=== PATIENT | female | born 1990 | race Caucasian/White ===

== ENCOUNTER 2021-12-09 11:00 | Emergency (ER) | payer MEDICAID, SELFPAY ==
[2021-12-09 11:01] VITALS: BP 135/82; PULSE 89; RESP 18; TEMP 35.7; O2SAT 97; BMI 38.2
[2021-12-09 11:12] VITALS: O2SAT 97
[2021-12-09 11:31] VITALS: BP 135/82; PULSE 89; RESP 18; TEMP 35.7; O2SAT 97
--- NOTE | 2021-12-09 11:58 | RAD_ITS ---
STUDY: X-RAY CHEST REASON FOR EXAM: Female, 31 years old. 3 day history of cough and shortness of breath. TECHNIQUE: Single AP portable view of the chest. COMPARISON: None. FINDINGS: The lungs are clear and expanded. There is no demonstrated pleural abnormality. Normal size heart. Normal mediastinum and bessy. Normal visualized pulmonary arteries. Normal visualized aortic arch and descending thoracic aorta. Normal visualized thoracic spine. Normal visualized ribs, clavicles, and shoulders. There is no demonstrated abnormality of the visualized soft tissue structures of the upper abdomen. RAD/Chest 1 View (Portable) IMPRESSION: Normal x-ray examination of the chest. Electronically Signed: Ralph Arteaga MD at 13:47 EST ,
--- NOTE | 2021-12-09 11:59 | EKG12_ITS ---
Test Reason : CP Blood Pressure : / mmHG Vent. Rate : 066 BPM Atrial Rate : 066 BPM P-R Int : 134 ms QRS Dur : 072 ms QT Int : 428 ms P-R-T Axes : 072 028 035 degrees QTc Int : 448 ms Normal sinus rhythm with sinus arrhythmia Normal ECG Confirmed by VANNESA MORSE, LEIF ([id number]), newspaper photo editor LEAH LAGUNAS ([id number]) on 12/10/2021 11:34:11 AM Referred By: DA Confirmed By:LEIF GRANADO MD
--- NOTE | 2021-12-09 12:00 | EDS_ITS ---
HPI History of Present Illness Chief Complaint: Chest Pain Informant: patient Onset/Context/Timing Onset: Today Current Severity: Mild Maximum Severity: Mild Narrative Narrative: Patient presents with URI symptoms for the last 6 to 7 days. Patient states on Thursday and Thursday of last week she had sore throat and right ear pain. She was seen by a provider who put her on amoxicillin as well as prednisone. She states is not having improvement in her symptoms. By Thursday evening she had developed chills and body aches. She felt as if she had a fever but did not have a thermometer to check her temperature. Today she has had some intermittent sharp pain with deep breath. [facility] Medical History Anxiety Asthma Depression Small bowel obstruction Medical History no medical history Home Medications epinephrine 0.3 mg IM X1 #2 syringe 04/07/17 [Rx Last Taken Unknown] Allergy/AdvReac Type Severity Reaction Status Date / Time acetaminophen [From Tylenol] Allergy Anaphylaxis Verified 12/09/21 12:20 aspirin Allergy Hives Verified 12/09/21 11:15 oxycodone HCl [From Percocet] Allergy Shortness Verified 12/09/21 11:15 of breath peanut Allergy Shortness Verified 12/09/21 11:15 of breath strawberry [[place]] Allergy Hives Verified 12/09/21 11:15 venom-honey bee Allergy Shortness Verified 12/09/21 11:15 [bee venom (honey bee)] of breath water chestnut Allergy Hives Verified 12/09/21 11:15 MSG Allergy Hives Uncoded 12/09/21 11:15 TEA Allergy Rash Uncoded 12/09/21 11:15 Surgical History no surgical history Social History Smoking Status: Never smoker ROS ROS ED Constitutional Constitutional ED: Reports chills, fever(s) and subjective Eyes Eyes: Denies change in vision ENT ENT ED: Reports ear pain right and sore throat Cardiovascular Cardiovascular: Reports chest pain Respiratory/Chest Respiratory/Chest: Reports cough and dyspnea Gastrointestinal Gastrointestinal: Denies abdominal pain, diarrhea, nausea or vomiting Genitourinary Genitourinary ED: Denies dysuria Musculoskeletal Musculoskeletal: Reports myalgias; Denies back pain Integumentary Denies rash Neurologic Neurologic: Reports weakness; Denies headache(s) Allergic/Immunologic Allergic/Immunologic ED: Denies urticaria EXAM Physical Exam Const Vital Signs: 12/09/21 11:01 12/09/21 11:12 12/09/21 11:31 Temperature 96.3 F L 96.3 F L Temperature Source Temporal Temporal Pulse Rate 89 89 Respiratory Rate 18 18 Respiratory Effort Normal Respiratory Depth Normal Respiratory Pattern Normal Blood Pressure 135/82 H 135/82 H Blood Pressure Mean 99 99 Pulse Ox 97 97 Oxygen Delivery Method Room Air Room Air Room Air Positive well nourished and well developed General Appearance ED: well developed HEENT Reports moist mucous membranes Eyes PERRL and EOMs intact bilaterally Neck supple Chest Wall inspection of chest normal and palpation of chest normal Resp normal respiratory effort and clear to auscultation bilaterally Cardio regular rate and regular rhythm GI normal to inspection, nondistended, normoactive bowel sounds and non-tender Palpation: soft Extremity normal to inspection Neuro oriented x3 Sensorium / Orientation: alert Psych mental status grossly normal Skin no rashes or lesions noted MDM MDM MDM Narrative Medical decision making narrative: EKG, chest x-ray, lab work obtained. Patient has allergies to NSAIDs as well as Tylenol. She was given IV fluids. Lab Data Attestation: I reviewed the patient's lab results. Labs: Laboratory Results - last 24 hr 12/09/21 12/09/21 12/09/21 12:10 12:10 12:10 WBC 5.2 RBC 4.44 Hgb 13.7 Hct 40.3 MCV 90.8 MCH 30.9 MCHC 34.0 RDW Std Deviation 42.9 RDW Coeff of Cheri 12.9 Plt Count 366 MPV 9.6 Immature Gran % (Auto) 0.400 Neut % (Auto) 64.0 Lymph % (Auto) 26.6 [place] % (Auto) 7.0 Eos % (Auto) 1.4 Baso % (Auto) 0.6 Absolute Neuts (auto) 3.3 Absolute Lymphs (auto) 1.37 Nucleated RBC % 0 D-Dimer Quant (PE/DVT) 0.52 H* Sodium 139 Potassium 3.5 Chloride 107 Carbon Dioxide 26.0 Anion Gap 6 BUN 11 Creatinine 0.67 Estim Creat Clear Calc 110.48 Est GFR (MDRD) Af Amer 131 Est GFR (MDRD) Non-Af 109 BUN/Creatinine Ratio 16.3 Glucose 90 Calcium 8.9 Serum , Qual Monoscreen 12/09/21 12/09/21 12:10 12:10 WBC RBC Hgb Hct MCV MCH MCHC RDW Std Deviation RDW Coeff of Cheri Plt Count MPV Immature Gran % (Auto) Neut % (Auto) Lymph % (Auto) [place] % (Auto) Eos % (Auto) Baso % (Auto) Absolute Neuts (auto) Absolute Lymphs (auto) Nucleated RBC % D-Dimer Quant (PE/DVT) Sodium Potassium Chloride Carbon Dioxide Anion Gap BUN Creatinine Estim Creat Clear Calc Est GFR (MDRD) Af Amer Est GFR (MDRD) Non-Af BUN/Creatinine Ratio Glucose Calcium Serum , Qual NEGATIVE Monoscreen Negative Radiography Chest X-Ray - ED: 1 View, Read by ED Physician, Normal, Heart, Lungs and Mediastinum Diagnostic Testing: Clinical Impression(s) from Imaging Studies Chest X-Ray 12/09/21 11:58 IMPRESSION: Normal x-ray examination of the chest. Electronically Signed: Ralph Arteaga MD at 13:47 EST , Chest CTA 12/09/21 12:41 IMPRESSION: Normal CTA chest examination, without a demonstrated pulmonary embolism or arterial dissection. Electronically Signed: Ralph Arteaga MD at 13:51 EST , EKG Initial EKG: Attestation: I personally reviewed and interpreted this EKG as follows: Interpretation: Sinus Rhythm (Sinus at 66 with no acute ischemia.) Treatment and Re-Evaluation Comments:: Lab work reviewed with the patient. Blood work is remarkable only for a slightly elevated D-dimer. [place] screen, influenza swab, Covid swab all negative. CTA of the chest reveals no evidence of PE or infiltrate. Patient advised to continue supportive care at home. Return instructions provided. Discharge Plan Triage Chief Complaint: Chest Pain ED Provider: Jessica Emerson Dx/Rx/DC Orders Clinical Impression: Viral syndrome Instructions: ED Viral Syndrome (Adult) Prescriptions: No Action epinephrine 0.3 MG syringe 0.3 mg IM X1 Qty: 2 RF: 0 Primary Care Provider: Jac Fonseca Referrals: Jac Fonseca MD [Primary Care Provider] - 1 Week Disposition Disposition: Home, Self Care
[2021-12-09 12:22] LABS: Absolute Lymphocyte Count 1.37 X10^3/uL (0.83-4.51); Absolute Neutrophil Count 3.3 X10^3/uL (2.0-7.7); Basophil# 0.03 X10^3/uL; Basophil% 0.6 % (0-1); Eosinophil# 0.07 X10^3/uL; Eosinophils% 1.4 % (0-5); Hematocrit 40.3 % (37-47); Hemoglobin 13.7 g/dL (12.0-15.0); Lymphocyte # 1.37 X10^3/ul (0.83-4.51); Lymphocyte % 26.6 % (19-41); Mean Corpuscular Hgb 30.9 pg (27.0-32.0); Mean Corpuscular Volume 90.8 fL (81-99); Mean Platelet Vol. 9.6 fl (6.2-12.0); Monocyte# 0.36 X10^3/uL; NRBC Flagged by Analyzer 0 % (0-5); Neutrophil # 3.31 X10^3/uL (2.7-7.7); Platelet Count 366 K/mm3 (150-450); RBC Distribution Width CV 12.9 % (11.6-14.6); RBC Distribution Width SD 42.9 fl (35.1-43.9); Red Blood Count 4.44 M/mm3 (4.2-5.4); White Blood Count 5.2 K/mm3 (4.4-11.0)
[2021-12-09 12:33] LABS: Anion Gap 6 (5-15); BUN 11 mg/dL (7-18); BUN/Creat Ratio 16.3 RATIO (10-20); Calcium,Total 8.9 mg/dL (8.5-10.1); Chloride 107 mmol/L (98-107); Creatinine, Serum 0.67 mg/dL (0.55-1.02); EST Glomerular Filtration Rate 109 mL/min (>60); Est Glom Filt Rate - Afr Amer 131 mL/min (>60); Estimated Creatinine Clearance 110.48 ml/min; Glucose 90 mg/dL (74-106); Potassium 3.5 mmol/L (3.5-5.1); Sodium Level 139 mmol/L (136-145)
[2021-12-09 12:41] LABS: D-Dimer Quantitative (DVT/PE) 0.52 FEU/ug/m (0.27-0.49)
--- NOTE | 2021-12-09 12:41 | CT_ITS ---
STUDY: CTA CHEST REASON FOR EXAM: Female, 31 years old. Sob, cp. Upper respiratory tract infection. RADIATION DOSAGE (If Supplied By Facility): CTDIvol = ( 14.705 ) mGy, DLP = ( 503.90 ) mGycm TECHNIQUE: The examination was performed with the intravenous administration of IV 100mL Isovue-370. Post-processing of the angiographic images was performed, with multiplanar reformation and 3D reconstruction. Individualized dose optimization techniques were used for this CT. COMPARISON: None. FINDINGS: Normal enhancement of the main pulmonary artery and right and left pulmonary arteries. Normal enhancement of the bilateral peripheral pulmonary arteries. There is no demonstrated pulmonary embolism. Normal thoracic aorta and visualized great vessels. There is no demonstrated aortic dissection. Normal heart and pericardium. Normal mediastinum. Normal hilar regions. Normal visualized trachea and bronchi. The lungs are well expanded. Minimal degree of dependent bibasilar atelectasis. Normal pleura. Normal chest wall structures. Normal osseous structures. There is diffuse fatty infiltration of the liver. CT/CTA Chest W/WO Contrast IMPRESSION: Normal CTA chest examination, without a demonstrated pulmonary embolism or arterial dissection. Electronically Signed: Ralph Arteaga MD at 13:51 EST ,
[2021-12-09 12:45] LABS: Internal QC Validated? YES +Cl - CLEAR BKGD; Pregnancy, Serum, hCG Quali. NEGATIVE Negative
[2021-12-09 12:55] LABS: Internal QC Validated? YES +Cl - CLEAR BKGD; Monotest Negative (Negative)
[2021-12-09 15:28] VITALS: BP 134/85; PULSE 89; RESP 16; TEMP 36.4; O2SAT 98
== END 2021-12-09 15:29 | disposition home or self-care (01) ==
PROVIDERS: Emergency Provider Emergency Medicine; PCP Family Medicine; Visit Provider Emergency Medicine
DX: B34.9 Viral infection, unspecified (principal); Z20.822 Contact with and (suspected) exposure to COVID-19; J45.909 Unspecified asthma, uncomplicated
CPT/HCPCS: 71045; 71275; 80048; 84703; 85025; 85379; 86308; 87426; 87804; 93005; 96360; 99284; J7030; Q9967; A4216

== ENCOUNTER 2021-12-19 05:48 | Emergency (ER) | payer MEDICAID, SELFPAY ==
[2021-12-19 05:49] VITALS: BP 114/65; PULSE 66; RESP 18; TEMP 35.7; O2SAT 95; BMI 39.2
--- NOTE | 2021-12-19 06:09 | EX.ED.DYSGE1 ---
HPI History of Present Illness Chief Complaint: Abd Pain Narrative Narrative: Patient is a 31-year-old female who states about 2 weeks ago she was diagnosed with a viral upper respiratory infection. States she is got over that about 3 days ago. She states she was feeling fine and went to bed last night normally and then awoke around 4 AM with generalized lower abdominal pain with nausea and loose stool/diarrhea. She denies any known sick contacts. She denies any travel outside the country or recent antibiotic use or exposure to livestock. She does report a history of IBS with diarrhea but states this feels different. Therefore she is concern for a underlying infection presents for evaluation [facility] Medical History Anxiety Asthma Depression Small bowel obstruction Home Medications epinephrine 0.3 mg IM X1 #2 syringe 04/07/17 [Rx Last Taken Unknown] dicyclomine 20 mg PO 4X/DAY PRN PRN #28 tab 12/19/21 [Rx Last Taken Unknown] ondansetron 4 mg PO Q8H PRN #21 tab 12/19/21 [Rx Last Taken Unknown] oxycodone 5 mg PO TID PRN 3 Days #9 tab 12/19/21 [Rx Last Taken Unknown] Allergy/AdvReac Type Severity Reaction Status Date / Time acetaminophen [From Tylenol] Allergy Anaphylaxis Verified 12/19/21 05:53 aspirin Allergy Hives Verified 12/19/21 05:53 oxycodone HCl [From Percocet] Allergy Shortness Verified 12/19/21 05:53 of breath peanut Allergy Shortness Verified 12/19/21 05:53 of breath strawberry [[place]] Allergy Hives Verified 12/19/21 05:53 venom-honey bee Allergy Shortness Verified 12/19/21 05:53 [bee venom (honey bee)] of breath water chestnut Allergy Hives Verified 12/19/21 05:53 MSG Allergy Hives Uncoded 12/19/21 05:53 TEA Allergy Rash Uncoded 12/19/21 05:53 Social History Smoking Status: Former smoker ROS ROS ED Constitutional Constitutional ED: Denies chills or fever(s) ENT ENT ED: Denies sore throat Cardiovascular Cardiovascular: Denies chest pain Respiratory/Chest Respiratory/Chest: Denies cough or dyspnea Gastrointestinal Gastrointestinal: Reports abdominal pain, diarrhea and nausea; Denies vomiting Genitourinary Genitourinary ED: Denies dysuria Musculoskeletal Musculoskeletal: Denies myalgias Integumentary Denies rash Neurologic Neurologic: Denies headache(s) Hematologic/Lymphatic Hematologic/Lymphatic: Denies easy bleeding or easy bruising EXAM Physical Exam Const Vital Signs: 12/19/21 05:49 Temperature 96.2 F L Temperature Source Temporal Pulse Rate 66 Respiratory Rate 18 Blood Pressure 114/65 Blood Pressure Mean 81 Pulse Ox 95 Oxygen Delivery Method Room Air Positive well nourished, well developed and obese General Appearance ED: well developed Nutritional Appearance: obese HEENT Reports dry mucous membranes Mouth ED: Yes dry mucous membranes Mouth: dry mucous membranes Eyes PERRL and EOMs intact bilaterally Neck supple Resp normal respiratory effort and clear to auscultation bilaterally Cardio regular rate and regular rhythm Rate: other Other Details: Radial pulses are +2-4 bilaterally are equal and symmetric GI non-distended GI Narrative: Abdomen is obese soft and nondistended with hypoactive bowel sounds. There is pain with palpation along the midepigastric region as well as the suprapubic and right lower quadrants. No voluntary guarding or rigidity. No pulsatile mass. No increased tympany Palpation: soft Extremity normal to inspection Neuro oriented x3 and CN's II-XII intact bilaterally Sensorium / Orientation: alert Motor Exam: strength 5/5 throughout Psych mental status grossly normal Skin no rashes or lesions noted MDM MDM MDM Narrative Medical decision making narrative: Patient presented to the ER afebrile with a soft nonsurgical abdomen. Therefore I felt only need for basic laboratory studies and no x-ray or CAT scan at this time. Basic blood work revealed no clinically significant findings. Patient was treated with IV fluids morphine and Zofran and had improvement of her pain. On reevaluation she is resting comfortably and her abdomen remains soft and nonsurgical. Therefore at this time I feel she most likely has a viral stomach infection but as she does not have signs of acute kidney injury or electrolyte disturbance or underlying intestinal inflammatory/infectious changes she can be placed on medication and discharged home. Lab Data Attestation: I reviewed the patient's lab results. Labs: Laboratory Results - last 24 hr 12/19/21 12/19/21 12/19/21 05:55 05:55 06:50 WBC 7.5 RBC 4.60 Hgb 14.2 Hct 41.8 MCV 90.9 MCH 30.9 MCHC 34.0 RDW Std Deviation 43.8 RDW Coeff of Cheri 13.1 Plt Count 326 MPV 9.6 Immature Gran % (Auto) 0.300 Neut % (Auto) 67.0 Lymph % (Auto) 24.9 [place] % (Auto) 6.4 Eos % (Auto) 0.9 Baso % (Auto) 0.5 Absolute Neuts (auto) 5.1 Absolute Lymphs (auto) 1.88 Nucleated RBC % 0 Sodium 137 Potassium 3.9 Chloride 107 Carbon Dioxide 24.0 Anion Gap 6 BUN 12 Creatinine 0.80 Estim Creat Clear Calc 88.79 Est GFR (MDRD) Af Amer 108 Est GFR (MDRD) Non-Af 89 BUN/Creatinine Ratio 15.0 Glucose 100 Calcium 8.9 Total Bilirubin 1.10 H Direct Bilirubin 0.19 AST 18 ALT 58 H Alkaline Phosphatase 73 Total Protein 7.3 Albumin 3.8 Globulin 3.5 Lipase 103 Urine Color Yellow Urine Clarity Clear Urine pH 6.0 Ur Specific [place] 1.020 Urine Protein 15 H Urine Glucose (UA) Normal Urine Ketones Negative Urine Occult Blood Negative Urine Nitrite Negative Urine Bilirubin Negative Urine Urobilinogen Normal Ur Leukocyte Esterase Negative Discharge Plan Triage Chief Complaint: Abd Pain ED Provider: Enmanuel Griffith Dx/Rx/DC Orders Clinical Impression: Nonspecific abdominal pain, Nausea, Diarrhea Instructions: Abdominal Pain, ED Gastroenteritis, Viral (Adult) Prescriptions: New ondansetron 4 mg tablet,disintegrating 4 mg PO Q8H PRN (Reason: nausea and vomiting) Qty: 21 RF: 0 dicyclomine 20 mg tablet 20 mg PO 4X/DAY PRN PRN (Reason: Abdominal pain/spasm) Qty: 28 RF: 0 oxycodone 5 mg tablet 5 mg PO TID PRN (Reason: pain) 3 Days Qty: 9 RF: 0 No Action epinephrine 0.3 MG syringe 0.3 mg IM X1 Qty: 2 RF: 0 Primary Care Provider: Jac Fonseca Referrals: Jac Fonseca MD [Primary Care Provider] - Disposition Disposition: Home, Self Care
[2021-12-19 06:11] LABS: Absolute Lymphocyte Count 1.88 X10^3/uL (0.83-4.51); Absolute Neutrophil Count 5.1 X10^3/uL (2.0-7.7); Basophil# 0.04 X10^3/uL; Basophil% 0.5 % (0-1); Eosinophil# 0.07 X10^3/uL; Eosinophils% 0.9 % (0-5); Hematocrit 41.8 % (37-47); Hemoglobin 14.2 g/dL (12.0-15.0); Lymphocyte # 1.88 X10^3/ul (0.83-4.51); Lymphocyte % 24.9 % (19-41); Mean Corpuscular Hgb 30.9 pg (27.0-32.0); Mean Corpuscular Volume 90.9 fL (81-99); Mean Platelet Vol. 9.6 fl (6.2-12.0); Monocyte# 0.48 X10^3/uL; Monocyte% 6.4 % (0-10); NRBC Flagged by Analyzer 0 % (0-5); Neutrophil # 5.05 X10^3/uL (2.7-7.7); Platelet Count 326 K/mm3 (150-450); RBC Distribution Width CV 13.1 % (11.6-14.6); RBC Distribution Width SD 43.8 fl (35.1-43.9); White Blood Count 7.5 K/mm3 (4.4-11.0)
[2021-12-19] MEDS: 0.9% Normal Saline 1,000 ML 999 ML IV (06:15)
[2021-12-19] MEDS: Ondansetron 4 MG/2 ML Vial IV (06:16)
[2021-12-19] MEDS: Morphine 4 MG/ML Syringe IV (06:17)
[2021-12-19 06:32] LABS: AST(SGOT) 18 U/L (15-37); Alanine Aminotransfer ALT/SGPT 58 U/L (13-56); Albumin, Serum 3.8 g/dL (3.2-5.0); Alkaline Phosphatase 73 U/L (45-117); Anion Gap 6 (5-15); BUN 12 mg/dL (7-18); Bilirubin, Direct 0.19 mg/dL (0.00-0.30); Calcium,Total 8.9 mg/dL (8.5-10.1); Chloride 107 mmol/L (98-107); EST Glomerular Filtration Rate 89 mL/min (>60); Est Glom Filt Rate - Afr Amer 108 mL/min (>60); Estimated Creatinine Clearance 88.79 ml/min; Globulin 3.5 g/dL (2.2-4.2); Glucose 100 mg/dL (74-106); Lipase 103 U/L (73-393); Potassium 3.9 mmol/L (3.5-5.1); Protein, Total 7.3 g/dL (6.4-8.2); Sodium Level 137 mmol/L (136-145)
[2021-12-19 06:56] LABS: Color, Urine Yellow (Yellow); Glucose, Dipstick Normal (Normal); Ketone-Dipstick Negative (Negative); Leukocyte Esterase-Dipstick Negative /ul (Negative); Mucous, Urine 0 SEEN /hpf (<or=2+); Nitrite-Dipstick Negative (Negative); Occult Blood-Urine Negative /ul (Negative); Protein-Dipstick 15 mg/dl (Negative); Red Blood Cells-Urine 0 SEEN /hpf (0-5); Urine Bilirubin Dipstick Negative (Negative); Urine Clarity Clear (Clear); Urine Urobilinogen Normal (Normal); White Blood Cells 0 SEEN /hpf (0-5)
[2021-12-19 07:07] LABS: Bacteria 1+ /hpf (None Seen); Squamous Epithelial Cells - UA 0-5 SEEN /hpf (5-10)
[2021-12-19 07:24] VITALS: BP 115/82; PULSE 68; RESP 18
== END 2021-12-19 07:26 | disposition home or self-care (01) ==
PROVIDERS: Emergency Provider Emergency Medicine; PCP Family Medicine; Visit Provider Emergency Medicine
DX: R10.9 Unspecified abdominal pain (principal); R11.0 Nausea; K58.0 Irritable bowel syndrome with diarrhea; J45.909 Unspecified asthma, uncomplicated; E66.9 Obesity, unspecified; F32.A Depression, unspecified; F41.9 Anxiety disorder, unspecified; Z87.891 Personal history of nicotine dependence
CPT/HCPCS: 80048; 80076; 81001; 83690; 85025; 87086; 87088; 96361; 96374; 96375; 99283; A4216; J2405

== ENCOUNTER 2021-12-26 16:13 | Emergency (ER) | payer MEDICAID, SELFPAY ==
[2021-12-26 16:14] VITALS: BP 121/55; PULSE 65; RESP 14; TEMP 36.9; O2SAT 100; BMI 37.8
--- NOTE | 2021-12-26 16:26 | CT_ITS ---
HISTORY: flank pain EXAMINATION: CT Abdomen And Pelvis W/O Contrast Injection TECHNIQUE: Multiple axial images were obtained of the abdomen and pelvis without oral or IV contrast. A radiation dose optimization technique was used for this scan. IV Contrast dosage and agent: None. Oral contrast: None. COMPARISON: 06/30/16 FINDINGS: LOWER CHEST: Trace bibasilar pleural effusions. No cardiomegaly or pericardial effusion. LIVER: Homogeneous. No focal mass. GALLBLADDER AND BILIARY TREE: Cholecystectomy. No intra- or extrahepatic biliary ductal dilation. PANCREAS: No focal cystic or solid mass. SPLEEN: Normal size without focal cystic or solid mass. ADRENAL GLANDS: No nodules. KIDNEYS AND URETERS: Nonobstructing right renal calculi. No hydronephrosis bilaterally. PERITONEUM: No ascites or free air. BOWEL: Normal appendix. No stomach or bowel distension. No focal inflammatory bowel wall changes. LYMPH NODES: No enlarged mesenteric or retroperitoneal lymph nodes. VESSELS: Aorta is non-dilated. URINARY BLADDER: Unremarkable. REPRODUCTIVE ORGANS: No pelvic masses. Uterus absent. ABDOMINAL WALL: No discrete abdominal or pelvic wall hernia. BONES: No acute or aggressive abnormality. CT/Abdomen/Pelvis without Cont IMPRESSION: No acute findings in the abdomen or pelvis. Nonobstructing right nephrolithiasis. No evidence of obstructive uropathy. Trace bibasilar pleural effusions. Individualized dose optimization techniques were used for this CT. at 1803 Reported and signed by: Levi Sosa MD Electronically Signed: Levi Sosa MD at 18:01 EST ,
[2021-12-26] MEDS: 0.9% Normal Saline 1,000 ML 999 ML IV (16:34)
[2021-12-26] MEDS: Morphine 4 MG/ML Syringe IV (16:34)
[2021-12-26] MEDS: Ondansetron 4 MG/2 ML Vial IV (16:34)
--- NOTE | 2021-12-26 16:36 | EDS_ITS ---
HPI <MODESTA Faust - Last Filed: 12/26/21 18:24> History of Present Illness Chief Complaint: Flank Pain Narrative Narrative: 31-year-old female with PMH of kidney stones presents with nausea and vomiting that started this morning and sudden onset bilateral lower back pain that started 1 hour ago. Pain is slightly worse on the right. She states her urine seems darker but she has no burning or blood. No abdominal pain. No fever, chills, chest pain, or shortness of breath. She states she had kidney stones once 2 years ago and it passed without intervention but she did need admitted for pain control. Abdominal surgical history includes cholecystectomy and hysterectomy. PFSH <MODESTA Faust - Last Filed: 12/26/21 18:24> PFSH Medical History (Updated 12/26/21 @ 18:[address] Domenic Ponce MD) Anxiety Asthma Depression Hx of abdominal abscess Small bowel obstruction Home Medications epinephrine 0.3 mg IM X1 #2 syringe 04/07/17 [Rx Last Taken Unknown] lidocaine 1 patch TOPICAL DAILY #7 ea 12/26/21 [Rx Last Taken Unknown] ondansetron 4 mg PO Q8H PRN PRN #10 tab 12/26/21 [Rx Last Taken Unknown] Allergy/AdvReac Type Severity Reaction Status Date / Time acetaminophen [From Tylenol] Allergy Anaphylaxis Verified 12/26/21 16:15 aspirin Allergy Hives Verified 12/26/21 16:15 ibuprofen Allergy Anaphylaxis Verified 12/26/21 16:23 oxycodone HCl [From Percocet] Allergy Shortness Verified 12/26/21 16:15 of breath peanut Allergy Shortness Verified 12/26/21 16:15 of breath strawberry [[place]] Allergy Hives Verified 12/26/21 16:15 venom-honey bee Allergy Shortness Verified 12/26/21 16:15 [bee venom (honey bee)] of breath water chestnut Allergy Hives Verified 12/26/21 16:15 MSG Allergy Hives Uncoded 12/26/21 16:15 TEA Allergy Rash Uncoded 12/26/21 16:15 Surgical History (Updated 12/26/21 @ 16:25 by Inés Cooley) Hx of cholecystectomy Social History Smoking Status: Former smoker ROS <MODESTA Faust - Last Filed: 12/26/21 18:24> ROS ED ROS Narrative Constitutional: Negative for fever, chills, malaise. Eyes: Negative for visual change. ENT: Negative for sore throat, rhinorrhea. CVS: Negative for palpitations, chest pain, syncope. Respiratory: Negative for shortness of breath, cough, orthopnea. GI: Positive for nausea, vomiting. Negative for abdominal pain, diarrhea, constipation, melena, hematochezia. : Negative for dysuria, hematuria or frequency. Neuro: Negative for headache, motor/sensory dysfunction. Skin: Negative for rash, abscess, or wound. Musc: Negative for joint pain, swelling, trauma. Heme: Negative for easy bruising, bleeding, lymphadenopathy. EXAM <MODESTA Faust - Last Filed: 12/26/21 18:24> Physical Exam Narrative Exam Narrative: CONST: Patient sitting in no acute distress. EYES: Normal inspection. ENT: Normal inspection, moist mucous membranes. NECK: Normal inspection. RESP: No respiratory distress, CTAB. CVS: Regular rate and rhythm, no murmur, no gallop. ABD: Soft and nontender, no guarding or rebound, nondistended, no he patosplenomegaly. Back: Normal inspection, no CVA tenderness. SKIN: Color normal, no rash, warm, dry, intact. EXTREMITIES: Normal appearance, no pedal edema. NEURO: Oriented x4. PSYCH: Normal affect. Const Vital Signs: 12/26/21 16:14 Temperature 98.5 F Temperature Source Temporal Pulse Rate 65 Respiratory Rate 14 Blood Pressure 121/55 H Blood Pressure Mean 77 Pulse Ox 100 Oxygen Delivery Method Room Air <Dr. Domenic Ponce MD - Last Filed: 12/26/21 18:30> Physical Exam Const Vital Signs: 12/26/21 16:14 Temperature 98.5 F Temperature Source Temporal Pulse Rate 65 Respiratory Rate 14 Blood Pressure 121/55 H Blood Pressure Mean 77 Pulse Ox 100 Oxygen Delivery Method Room Air MDM <MODESTA Faust - Last Filed: 12/26/21 18:24> MDM MDM Narrative Medical decision making narrative: Patient presents with vomiting and bilateral low back pain and abdominal pain. She appears uncomfortable but nontoxic. Afebrile and vital signs within normal limits. Her cardiopulmonary exam is normal. She does have mild diffuse abdominal tenderness but it is soft and nondistended with no peritoneal signs. No CVA tenderness. No midline spinal tenderness. CBC, BMP within normal limits. Urinalysis and hCG are negative. CT abdomen/pelvis shows no acute process. I will prescribe Zofran and lidocaine patches for her flank pain of unknown etiology. She was counseled on signs that would warrant return and should follow-up with her PCP. She was discharged in stable condition. Diagnosis #1. Flank pain of unknown etiology #2 Nausea and vomiting Lab Data Labs: Laboratory Results - last 24 hr 12/26/21 12/26/21 12/26/21 16:30 16:30 16:35 WBC 7.1 RBC 4.62 Hgb 14.1 Hct 42.1 MCV 91.1 MCH 30.5 MCHC 33.5 RDW Std Deviation 43.6 RDW Coeff of Cheri 13.1 Plt Count 297 MPV 9.9 Immature Gran % (Auto) 0.400 Neut % (Auto) 70.7 H Lymph % (Auto) 21.4 [place] % (Auto) 6.3 Eos % (Auto) 0.8 Baso % (Auto) 0.4 Absolute Neuts (auto) 5.0 Absolute Lymphs (auto) 1.52 Nucleated RBC % 0 Sodium 138 Potassium 3.8 Chloride 107 Carbon Dioxide 25.0 Anion Gap 6 BUN 10 Creatinine 0.83 Estim Creat Clear Calc 85.58 Est GFR (MDRD) Af Amer 103 Est GFR (MDRD) Non-Af 85 BUN/Creatinine Ratio 12.0 Glucose 89 Calcium 9.2 Urine Color Yellow Urine Clarity Clear Urine pH 6.5 Ur Specific [place] 1.010 Urine Protein Negative Urine Glucose (UA) Normal Urine Ketones Negative Urine Occult Blood Negative Urine Nitrite Negative Urine Bilirubin Negative Urine Urobilinogen Normal Ur Leukocyte Esterase Negative Urine RBC 0 SEEN Urine WBC 0 SEEN Ur Squamous Epith Cells 0-5 SEEN Urine Bacteria 0 SEEN Urine Mucus 0 SEEN Urine Test Negative Radiography Diagnostic Testing: Clinical Impression(s) from Imaging Studies Abdomen/Pelvis CT 12/26/21 16:26 IMPRESSION: No acute findings in the abdomen or pelvis. Nonobstructing right nephrolithiasis. No evidence of obstructive uropathy. Trace bibasilar pleural effusions. Individualized dose optimization techniques were used for this CT. at 1803 Reported and signed by: Levi Sosa MD Electronically Signed: Levi Sosa MD at 18:01 EST , <Dr. Domenic Ponce MD - Last Filed: 12/26/21 18:30> [facility] MDM Narrative Medical decision making narrative: Patient presents with low back pain only on one side versus the other. It is exacerbated with movement. Patient believes she has a stone. She denies dysuria, frequency, urgency or hematuria. She does rep ort low back pain as well as numbness in her entire right leg. She denies foot drop. She denies trouble with urination or loss of bowel control. She has no other complaints. Straight leg test is negative. She complains of pain centrally at 45 degrees on the right. Patella and ankle reflexes are 1+. EHLs intact. She has numbness that is circumferential of the right leg. DP and PT pulse are palpable. CT was obtained which was negative. Lab Data Attestation: I reviewed the patient's lab results. Lab results narrative: CBC and differential are unremarkable. Basic metabolic panel is unremarkable. Urine is unremarkable. Labs: Laboratory Results - last 24 hr 12/26/21 12/26/21 12/26/21 16:30 16:30 16:35 WBC 7.1 RBC 4.62 Hgb 14.1 Hct 42.1 MCV 91.1 MCH 30.5 MCHC 33.5 RDW Std Deviation 43.6 RDW Coeff of Cheri 13.1 Plt Count 297 MPV 9.9 Immature Gran % (Auto) 0.400 Neut % (Auto) 70.7 H Lymph % (Auto) 21.4 [place] % (Auto) 6.3 Eos % (Auto) 0.8 Baso % (Auto) 0.4 Absolute Neuts (auto) 5.0 Absolute Lymphs (auto) 1.52 Nucleated RBC % 0 Sodium 138 Potassium 3.8 Chloride 107 Carbon Dioxide 25.0 Anion Gap 6 BUN 10 Creatinine 0.83 Estim Creat Clear Calc 85.58 Est GFR (MDRD) Af Amer 103 Est GFR (MDRD) Non-Af 85 BUN/Creatinine Ratio 12.0 Glucose 89 Calcium 9.2 Urine Color Yellow Urine Clarity Clear Urine pH 6.5 Ur Specific [place] 1.010 Urine Protein Negative Urine Glucose (UA) Normal Urine Ketones Negative Urine Occult Blood Negative Urine Nitrite Negative Urine Bilirubin Negative Urine Urobilinogen Normal Ur Leukocyte Esterase Negative Urine RBC 0 SEEN Urine WBC 0 SEEN Ur Squamous Epith Cells 0-5 SEEN Urine Bacteria 0 SEEN Urine Mucus 0 SEEN Urine Test Negative Radiography Diagnostic Testing: Clinical Impression(s) from Imaging Studies Abdomen/Pelvis CT 12/26/21 16:26 IMPRESSION: No acute findings in the abdomen or pelvis. Nonobstructing right nephrolithiasis. No evidence of obstructive uropathy. Trace bibasilar pleural effusions. Individualized dose optimization techniques were used for this CT. at 1803 Reported and signed by: Levi Sosa MD Electronically Signed: Levi Sosa MD at 18:01 EST Reading Location ID and State: [address] [place] [address] Tel , Service support , Discharge Plan Triage Chief Complaint: Flank Pain ED Provider: Franchesca Catherine Dx/Rx/DC Orders Clinical Impression: Nausea and vomiting, Acute flank pain, Low back pain, Numbness and tingling of right lower extremity Instructions: ED Flank Pain, Uncertain Cause, ED Vomiting (Adult) Prescriptions: New ondansetron 4 mg tablet,disintegrating 4 mg PO Q8H PRN PRN (Reason: Nausea) Qty: 10 RF: 0 lidocaine 5 % adhesive patch,medicated 1 patch topical DAILY Qty: 7 RF: 0 No Action epinephrine 0.3 MG syringe 0.3 mg IM X1 Qty: 2 RF: 0 Primary Care Provider: Jac Fonseca Referrals: Jac Fonseca MD [Primary Care Provider] - Activity Restrictions/Additional Instructions: Today you were seen for abdominal and back pain. Your blood work looks normal. There is no UTI and your test is negative. The CAT scan showed no abnormalities. At this time the cause of your pain is unknown but we feel you are safe to go home and follow-up with your primary care doctor. Please take Zofran as needed for nausea and you can use the lidocaine patches on the affected areas Disposition Disposition: Home, Self Care
[2021-12-26 16:43] LABS: Bacteria 0 SEEN /hpf (None Seen); Mucous, Urine 0 SEEN /hpf (<or=2+); Red Blood Cells-Urine 0 SEEN /hpf (0-5); White Blood Cells 0 SEEN /hpf (0-5)
[2021-12-26 16:45] LABS: Absolute Lymphocyte Count 1.52 X10^3/uL (0.83-4.51); Basophil# 0.03 X10^3/uL; Basophil% 0.4 % (0-1); Eosinophil# 0.06 X10^3/uL; Eosinophils% 0.8 % (0-5); Hematocrit 42.1 % (37-47); Hemoglobin 14.1 g/dL (12.0-15.0); Lymphocyte # 1.52 X10^3/ul (0.83-4.51); Lymphocyte % 21.4 % (19-41); Mean Corp Hgb Conc 33.5 g/dL (32-36); Mean Corpuscular Hgb 30.5 pg (27.0-32.0); Mean Corpuscular Volume 91.1 fL (81-99); Mean Platelet Vol. 9.9 fl (6.2-12.0); Monocyte# 0.45 X10^3/uL; Monocyte% 6.3 % (0-10); NRBC Flagged by Analyzer 0 % (0-5); Neutrophil % 70.7 % (47-70); Platelet Count 297 K/mm3 (150-450); RBC Distribution Width CV 13.1 % (11.6-14.6); RBC Distribution Width SD 43.6 fl (35.1-43.9); Red Blood Count 4.62 M/mm3 (4.2-5.4); White Blood Count 7.1 K/mm3 (4.4-11.0)
[2021-12-26 16:59] LABS: Color, Urine Yellow (Yellow); Glucose, Dipstick Normal (Normal); Ketone-Dipstick Negative (Negative); Leukocyte Esterase-Dipstick Negative /ul (Negative); Nitrite-Dipstick Negative (Negative); Occult Blood-Urine Negative /ul (Negative); Protein-Dipstick Negative (Negative); Urine Bilirubin Dipstick Negative (Negative); Urine Clarity Clear (Clear); Urine Urobilinogen Normal (Normal); Urine pH 6.5 (5.0 - 8.0)
[2021-12-26 17:14] LABS: Squamous Epithelial Cells - UA 0-5 SEEN /hpf (5-10)
[2021-12-26 17:16] LABS: Anion Gap 6 (5-15); BUN 10 mg/dL (7-18); Calcium,Total 9.2 mg/dL (8.5-10.1); Chloride 107 mmol/L (98-107); Creatinine, Serum 0.83 mg/dL (0.55-1.02); EST Glomerular Filtration Rate 85 mL/min (>60); Est Glom Filt Rate - Afr Amer 103 mL/min (>60); Estimated Creatinine Clearance 85.58 ml/min; Glucose 89 mg/dL (74-106); Potassium 3.8 mmol/L (3.5-5.1); Sodium Level 138 mmol/L (136-145)
[2021-12-26 17:25] LABS: Internal QC Validated? YES +Cl - CLEAR BKGD; Pregnancy, Urine Negative Negative
[2021-12-26 18:40] VITALS: RESP 16
== END 2021-12-26 18:42 | disposition home or self-care (01) ==
PROVIDERS: Emergency Provider Physician Assistant; PCP Family Medicine; Visit Provider Physician Assistant
DX: R10.9 Unspecified abdominal pain (principal); M54.50 Low back pain, unspecified; R11.2 Nausea with vomiting, unspecified; R20.2 Paresthesia of skin; R20.0 Anesthesia of skin; R10.817 Generalized abdominal tenderness; J45.909 Unspecified asthma, uncomplicated; Z87.442 Personal history of urinary calculi; Z87.891 Personal history of nicotine dependence; Z90.49 Acquired absence of other specified parts of digestive tract; Z90.710 Acquired absence of both cervix and uterus
CPT/HCPCS: 74176; 80048; 81001; 81025; 85025; 96361; 96374; 96375; 99283; J7030; A4216; J2405

== ENCOUNTER 2022-01-08 07:33 | Emergency (ER) | payer MEDICAID, SELFPAY ==
[2022-01-08 07:33] VITALS: BP 134/74; PULSE 75; RESP 18; TEMP 36.7; O2SAT 95; BMI 39.2
[2022-01-08] MEDS: Meclizine HCl 25 MG Tablet PO (08:34)
--- NOTE | 2022-01-08 08:46 | EDS_ITS ---
HPI History of Present Illness Chief Complaint: Dizziness Informant: patient Narrative Narrative: Patient is a 31-year-old female with history of intermittent vertigo presenting with dizziness. Patient states she had multiple cold over the past few weeks and most recently getting better 4 days ago. She states yesterday she had episode of mild dizziness when she woke up and feeling off balance. She states she rested and felt better as the day went on. This morning she got up around 4 AM for no particular reason that she is been feeling very dizzy since. She states it feels like the floor is bouncing when she walks. She states she has associated nausea. This feels like her prior vertigo but is never been this bad. She notes that she is also been having a headache for the past week which has been taking ibuprofen for. Denies any ringing in her ears, decrease in her hearing, ear pain or nasal congestion currently. No fever or chills. No other complaints at this time. [facility] Medical History (Updated 01/08/22 @ 10:[address] Lela Holland, ) Anxiety Asthma Depression Hx of abdominal abscess Small bowel obstruction Home Medications epinephrine 0.3 mg IM X1 #2 syringe 04/07/17 [Rx Last Taken Unknown] meclizine 25 mg PO TID PRN #20 tab 01/08/22 [Rx Last Taken Unknown] Allergy/AdvReac Type Severity Reaction Status Date / Time acetaminophen [From Tylenol] Allergy Anaphylaxis Verified 01/08/22 07:36 aspirin Allergy Hives Verified 01/08/22 07:36 ibuprofen Allergy Anaphylaxis Verified 01/08/22 07:36 oxycodone HCl [From Percocet] Allergy Shortness Verified 01/08/22 07:36 of breath peanut Allergy Shortness Verified 01/08/22 07:36 of breath strawberry [[place]] Allergy Hives Verified 01/08/22 07:36 venom-honey bee Allergy Shortness Verified 01/08/22 07:36 [bee venom (honey bee)] of breath water chestnut Allergy Hives Verified 01/08/22 07:36 MSG Allergy Hives Uncoded 01/08/22 07:36 TEA Allergy Rash Uncoded 01/08/22 07:36 Surgical History Hx of cholecystectomy Social History Smoking Status: Former smoker ROS ROS ED Constitutional Constitutional ED: Reports other Details: Dizziness ; Denies chills or fever(s) Eyes Eyes: Reports other Details: Photosensitivity ; Denies blurry vision or change in vision ENT ENT ED: Reports other Details: recent congestion ; Denies ear pain or rhinorrhea Cardiovascular Cardiovascular: Denies chest pain Respiratory/Chest Respiratory/Chest: Denies cough or dyspnea Gastrointestinal Gastrointestinal: Reports nausea; Denies abdominal pain, diarrhea or vomiting Genitourinary Genitourinary ED: Denies dysuria or hematuria Musculoskeletal Musculoskeletal: Denies arthralgias, myalgias or neck pain Integumentary Denies rash Neurologic Neurologic: Reports headache(s); Denies paresthesias or weakness EXAM Physical Exam Const Vital Signs: 01/08/22 07:33 01/08/22 08:17 01/08/22 09:59 Temperature 98.0 F Temperature Source Oral Pulse Rate 75 85 Respiratory Rate 18 16 Respiratory Pattern Normal Blood Pressure 134/74 H 121/79 H Blood Pressure Mean 94 93 Pulse Ox 95 100 Oxygen Delivery Method Room Air Room Air Positive well nourished and well developed General Appearance ED: well developed and NAD HEENT Reports TM's clear and moist mucous membranes Negative for trauma Tympanic Membrane ED: Yes TM's clear Eyes PERRL and EOMs intact bilaterally Eyes Narrative: Bilateral horizontal oversee nystagmus, exacerbated by leftward gaze/head movement and left Argenis-Hallpike maneuver Neck no lymphadenopathy and supple Neck Narrative: No meningeal signs Chest Wall inspection of chest normal Resp normal respiratory effort and clear to auscultation bilaterally Cardio regular rate, regular rhythm and no murmurs GI normal to inspection, nondistended, normoactive bowel sounds Back/Spine no CVA tenderness Extremity normal to inspection General Extremety ED: Negative for edema or tenderness General Extremity: Negative for edema Neuro oriented x3 and CN's II-XII intact bilaterally Neuro Narrative: Normal coordination. No truncal ataxia. Normal itrohn-uf-puym and [id number] Sensorium / Orientation: alert Motor Exam: Negative for general weakness Psych mental status grossly normal Skin no rashes or lesions noted and no wounds MDM MDM MDM Narrative Medical decision making narrative: Patient evaluated for 1 week of headache as well as dizziness. She appears nontoxic and in no acute distress. She is mildly tearful. I am able to reproduce her symptoms with head maneuvers. I suspect she has peripheral vertigo. She also has a history of headaches is been having a headache for the past week. It does not seem meningeal. Is not a thunderclap headache. Is given a migraine cocktail including Compazine, Benadryl and fluids. Patient is allergic to NSAIDs. She is also given meclizine in the ER. Patient reports improvement of symptoms on repeat evaluation. Will be discharged home with information on the Suzanne maneuver. Given referral for ENT. Given a short course of meclizine. Lab Data Labs: Laboratory Results - last 24 hr 01/08/22 09:15 Salicylates < 1.7 L Discharge Plan Triage Chief Complaint: Dizziness ED Provider: Lela Holland Dx/Rx/DC Orders Clinical Impression: Vertigo, Headache Instructions: ED BPV Vertigo Prescriptions: New meclizine 25 mg tablet 25 mg PO TID PRN (Reason: dizziness) Qty: 20 RF: 0 No Action epinephrine 0.3 MG syringe 0.3 mg IM X1 Qty: 2 RF: 0 Primary Care Provider: Jac Fonseca Referrals: Jac Fonseca MD [Primary Care Provider] - Ruperto Amaya MD [STAFF PHYSICIAN] - As Needed Disposition Disposition: Home, Self Care
[2022-01-08] MEDS: DiphenhydrAMINE 50 MG/ML Syringe 25 MG IV (09:06)
[2022-01-08] MEDS: 0.9% Normal Saline 1,000 ML 999 ML IV (09:06)
[2022-01-08] MEDS: proCHLORPERazine 10 MG/2 ML Vial IV (09:06)
[2022-01-08 09:54] LABS: Salicylate < 1.7 mg/dL (2.8-20.0)
[2022-01-08 09:59] VITALS: BP 121/79; PULSE 85; RESP 16; O2SAT 100
== END 2022-01-08 10:45 | disposition home or self-care (01) ==
PROVIDERS: Emergency Provider Emergency Medicine; PCP Family Medicine; Visit Provider Emergency Medicine
DX: R42 Dizziness and giddiness (principal); R51.9 Headache, unspecified; J45.909 Unspecified asthma, uncomplicated; Z87.891 Personal history of nicotine dependence
CPT/HCPCS: 80329; 96361; 96374; 96375; 99285; J7030; A4216; G0480

== ENCOUNTER 2022-02-05 12:46 | Emergency (ER) | payer MEDICAID, SELFPAY ==
[2022-02-05 12:46] VITALS: BP 147/91; PULSE 91; RESP 16; TEMP 36.6; O2SAT 98; BMI 37.8
--- NOTE | 2022-02-05 13:06 | EX.ED.GENINJ ---
HPI History of Present Illness Chief Complaint: Head Injury Narrative Narrative: Patient presents with postconcussive syndrome from an injury she sustained last evening around 8 or 9 PM, approximately 16 hours ago. She states that she fell against a door and hit the back of her head. She denies loss of consciousness. She also has left-sided neck pain. She has had multiple episodes of vomiting, 6 today. She has a headache and ringing in her ears. She denies any numbness or tingling of her arms or legs. She does not take blood thinners. She presents for evaluation. [facility] Medical History Anxiety Asthma Depression Hx of abdominal abscess Small bowel obstruction Home Medications epinephrine 0.3 mg IM X1 #2 syringe 04/07/17 [Rx Last Taken Unknown] meclizine 25 mg PO TID PRN #20 tab 01/08/22 [Rx Last Taken Unknown] ondansetron 4 mg PO Q6H PRN #12 tab 02/05/22 [Rx Last Taken Unknown] Allergy/AdvReac Type Severity Reaction Status Date / Time acetaminophen [From Tylenol] Allergy Anaphylaxis Verified 02/05/22 12:48 aspirin Allergy Hives Verified 02/05/22 12:48 ibuprofen Allergy Anaphylaxis Verified 02/05/22 12:48 oxycodone HCl [From Percocet] Allergy Shortness Verified 02/05/22 12:48 of breath peanut Allergy Shortness Verified 02/05/22 12:48 of breath strawberry [[place]] Allergy Hives Verified 02/05/22 12:48 venom-honey bee Allergy Shortness Verified 02/05/22 12:48 [bee venom (honey bee)] of breath water chestnut Allergy Hives Verified 02/05/22 12:48 MSG Allergy Hives Uncoded 02/05/22 12:48 TEA Allergy Rash Uncoded 02/05/22 12:48 Surgical History Hx of cholecystectomy Social History Smoking Status: Former smoker ROS ROS ED ROS Narrative Constitutional: No fever, no chills. HEENT: No sore throat. Left-sided neck pain. No loss of vision. No rhinorrhea. Cardiovascular: No chest pain. No palpitations. No pedal edema. Respiratory: No cough, no shortness of breath. Abdominal: No abdominal pain. Positive nausea. Positive vomiting. Genitourinary: No dysuria. No hematuria. Musculoskeletal: No myalgias. No arthralgias. Neurologic: Positive headaches. Problems concentrating, slight memory loss. Positive tinnitus. No dizziness. No lightheadedness. Skin: No rash. No change in color. Psychiatric: No depression. No anxiety. EXAM Physical Exam Narrative Exam Narrative: Afebrile. Vital signs noted. GCS 15. ABCs are intact. HEENT: Normocephalic. Atraumatic. PERRL, EOMI. Neck soft and supple. No point tenderness or step off. Mild tenderness to palpation left paraspinal musculature. Full range of motion of neck without pain. Cardiovascular: Regular rate and rhythm. No murmurs, rubs, or gallops appreciated. Respiratory: No tachypnea. Lungs clear to auscultation bilaterally. Gastrointestinal: Abdomen soft, nontender, with normoactive bowel sounds. No rebound or guarding. Neurological: Awake. Alert. Nonfocal, nonlateralizing. Able to raise arms above head without difficulty. Skin: No rash. Normal color. No pallor. Musculoskeletal: No pedal edema. Full range of motion extremities. Const Vital Signs: 02/05/22 12:46 02/05/22 12:52 Temperature 97.8 F Temperature Source Temporal Pulse Rate 91 Respiratory Rate 16 Respiratory Pattern Normal Blood Pressure 147/91 H Blood Pressure Mean 109 Pulse Ox 98 Oxygen Delivery Method Room Air MDM MDM MDM Narrative Medical decision making narrative: I do not feel that CT imaging of her brain, or any imaging of her neck is indicated. I do think that she has more of a neck strain. Her symptoms are all postconcussive. She will be symptomatic. She was given a dose of Zofran here, but lists multiple allergies to acetaminophen, aspirin, ibuprofen, oxycodone in her allergy list. She will take any [id number] medication that she can for analgesia. She was instructed on brain rest. Additionally, she was given a prescription for 12 Zofran ODT's. She will follow up with her primary care provider. She was told that her symptoms may last up to 7 to 10 days from the day of her injury, and then at that point in time she may need referral to a neurologist and outpatient imaging. I feel she can be discharged safely home with follow-up. Return instructions were reviewed. Disposition is discharged home in stable condition. Discharge Plan Triage Chief Complaint: Head Injury ED Provider: Federico Eden Dx/Rx/DC Orders Clinical Impression: Closed head injury, Post concussion syndrome, Fall Instructions: ED Concussion, ED Head Injury (Adult) Prescriptions: New ondansetron 4 mg tablet,disintegrating 4 mg PO Q6H PRN (Reason: nausea and vomiting) Qty: 12 RF: 0 No Action epinephrine 0.3 MG syringe 0.3 mg IM X1 Qty: 2 RF: 0 meclizine 25 mg tablet 25 mg PO TID PRN (Reason: dizziness) Qty: 20 RF: 0 Primary Care Provider: Jac Fonseca Referrals: Jac Fonseca MD [Primary Care Provider] - 1 Week if not improving Disposition Disposition: Home, Self Care Discharge Date/Time: 02/05/22 13:36
[2022-02-05] MEDS: Ondansetron ODT 4 MG Tablet PO (13:09)
== END 2022-02-05 13:36 | disposition home or self-care (01) ==
LOC: ED 13:23
PROVIDERS: Emergency Provider Emergency Medicine; PCP Family Medicine; Visit Provider Emergency Medicine
DX: F07.81 Postconcussional syndrome (principal); W01.198A Fall on same level from slipping, tripping and stumbling with subsequent striking against other object, initial encounter; H93.13 Tinnitus, bilateral; J45.909 Unspecified asthma, uncomplicated; Z87.891 Personal history of nicotine dependence
CPT/HCPCS: 99283

== ENCOUNTER 2022-04-21 14:34 | Emergency (ER) | payer MEDICAID, SELFPAY ==
[2022-04-21 14:35] VITALS: BP 144/93; PULSE 89; RESP 16; TEMP 36.7; O2SAT 99; BMI 39.4
[2022-04-21 15:02] VITALS: BP 146/68; PULSE 69; RESP 15; O2SAT 98
--- NOTE | 2022-04-21 15:07 | EDS_ITS ---
HPI HPI - GI History of Present Illness Chief Complaint: Abd Pain Narrative Narrative: 32-year-old female presenting with abdominal pain. She states this started abruptly on . She noted around her umbilicus and now is radiating to the right lower quadrant. She admits to diarrhea and nausea. She has not been vomiting. She had a fever of 101 ?F yesterday. She denies urinary complaints or vaginal complaints. She states that she has had a cholecystectomy distantly. She is also had intra-abdominal abscesses status post hysterectomy. PFSH PFSH Medical History Anxiety Asthma Depression Hx of abdominal abscess Small bowel obstruction Home Medications epinephrine 0.3 mg/0.3 mL injection, auto-injector 0.3 mg (0.3 mL) IM X1 ##2 04/07/17 [Rx Last Taken Unknown] ondansetron 4 mg disintegrating tablet 4 mg PO Q8H PRN nausea and vomiting #14 tabs 04/21/22 [Rx Last Taken Unknown] Allergy/AdvReac Type Severity Reaction Status Date / Time acetaminophen [From Tylenol] Allergy Anaphylaxis Verified 04/21/22 14:36 aspirin Allergy Hives Verified 04/21/22 14:36 ibuprofen Allergy Anaphylaxis Verified 04/21/22 14:36 oxycodone HCl [From Percocet] Allergy Shortness Verified 04/21/22 14:36 of breath peanut Allergy Shortness Verified 04/21/22 14:36 of breath strawberry [[place]] Allergy Hives Verified 04/21/22 14:36 venom-honey bee Allergy Shortness Verified 04/21/22 14:36 [bee venom (honey bee)] of breath water chestnut Allergy Hives Verified 04/21/22 14:36 MSG Allergy Hives Uncoded 04/21/22 14:36 TEA Allergy Rash Uncoded 04/21/22 14:36 Surgical History Hx of cholecystectomy Social History Smoking Status: Former smoker ROS ROS ED Constitutional Constitutional ED: Reports chills and fever(s) ENT ENT ED: Denies rhinorrhea or sore throat Cardiovascular Cardiovascular: Denies chest pain or palpitations Respiratory/Chest Respiratory/Chest: Denies cough or dyspnea Gastrointestinal Gastrointestinal: Reports abdominal pain, diarrhea and nausea; Denies vomiting Genitourinary Genitourinary ED: Denies dysuria or hematuria Musculoskeletal Musculoskeletal: Denies arthralgias or back pain Integumentary Denies abscess Neurologic Neurologic: Reports headache(s); Denies paresthesias Psychiatric Psychiatric: Denies anxiety or depression EXAM Physical Exam Const Vital Signs: 04/21/22 14:35 04/21/22 15:02 04/21/22 16:46 Temperature 98.0 F Temperature Source Temporal Pulse Rate 89 69 63 Respiratory Rate 16 15 16 Blood Pressure 144/93 H 146/68 H 113/69 Blood Pressure Mean 110 94 83 Pulse Ox 99 98 95 Oxygen Delivery Method Room Air Room Air Positive well nourished and obese General Appearance ED: NAD; Negative for pallor Nutritional Appearance: obese HEENT Reports moist mucous membranes Eyes PERRL and EOMs intact bilaterally Resp normal respiratory effort and clear to auscultation bilaterally Effort and Inspection: Negative for respiratory distress, retractions or pain with movement Cardio regular rate and regular rhythm GI Inspection: Negative for abdominal distention Auscultation: normoactive bowel sounds Palpation: tender RLQ, RUQ and periumbilical Neuro CN's II-XII intact bilaterally and moves all extremities Sensorium / Orientation: alert and oriented to person Psych mental status grossly normal and thought process normal Skin General Skin Exam: Negative for jaundice or pallor MDM MDM MDM Narrative Medical decision making narrative: Presenting with abdominal pain which is periumbilical, right upper quadrant, left lower quadrant. Patient given morphine, Zofran, IV fluids. Blood work is obtained and her CBC, CMP, lipase are all normal. hCG negative. Urinalysis slightly contaminated with 3+ bacteria. Patient does not have any urinary symptoms. CT of the abdomen pelvis is negative for acute findings. Appendix is identified and normal. Given this I feel the patient stable for discharge home. I will give him prescription for Zofran and to follow-up with her PCP to ensure resolution. Return precautions discussed. Impression: 1. Abdominal pain unknown cause female Lab Data Attestation: I reviewed the patient's lab results. Labs: Laboratory Results - last 24 hr 04/21/22 04/21/22 04/21/22 15:16 15:16 15:16 WBC 6.5 RBC 4.73 Hgb 14.2 Hct 42.4 MCV 89.6 MCH 30.0 MCHC 33.5 RDW Std Deviation 40.7 RDW Coeff of Cheri 12.3 Plt Count 325 MPV 9.3 Immature Gran % (Auto) 0.300 Neut % (Auto) 63.4 Lymph % (Auto) 26.1 [place] % (Auto) 8.2 Eos % (Auto) 1.2 Baso % (Auto) 0.8 Absolute Neuts (auto) 4.1 Absolute Lymphs (auto) 1.69 Nucleated RBC % 0 Sodium 138 Potassium 3.9 Chloride 108 H Carbon Dioxide 24.0 Anion Gap 6 BUN 9 Creatinine 0.66 Estim Creat Clear Calc 106.65 Est GFR (MDRD) Af Amer 134 Est GFR (MDRD) Non-Af 111 BUN/Creatinine Ratio 13.6 Glucose 94 Calcium 9.2 Total Bilirubin 1.10 H AST 18 ALT 51 Alkaline Phosphatase 62 Total Protein 7.5 Albumin 3.8 Globulin 3.7 Albumin/Globulin Ratio 1.0 Lipase 120 Serum , Qual NEGATIVE Urine Color Urine Clarity Urine pH Ur Specific [place] Urine Protein Urine Glucose (UA) Urine Ketones Urine Occult Blood Urine Nitrite Urine Bilirubin Urine Urobilinogen Ur Leukocyte Esterase Urine RBC Urine WBC Ur Squamous Epith Cells Ur Transition Epith Cell Urine Bacteria Urine Mucus 04/21/22 15:31 WBC RBC Hgb Hct MCV MCH MCHC RDW Std Deviation RDW Coeff of Cheri Plt Count MPV Immature Gran % (Auto) Neut % (Auto) Lymph % (Auto) [place] % (Auto) Eos % (Auto) Baso % (Auto) Absolute Neuts (auto) Absolute Lymphs (auto) Nucleated RBC % Sodium Potassium Chloride Carbon Dioxide Anion Gap BUN Creatinine Estim Creat Clear Calc Est GFR (MDRD) Af Amer Est GFR (MDRD) Non-Af BUN/Creatinine Ratio Glucose Calcium Total Bilirubin AST ALT Alkaline Phosphatase Total Protein Albumin Globulin Albumin/Globulin Ratio Lipase Serum , Qual Urine Color Yellow Urine Clarity Sl. Cloudy Urine pH 5.0 Ur Specific [place] 1.025 Urine Protein Negative Urine Glucose (UA) Normal Urine Ketones Negative Urine Occult Blood Negative Urine Nitrite Negative Urine Bilirubin Negative Urine Urobilinogen Normal Ur Leukocyte Esterase Negative Urine RBC 0 SEEN Urine WBC 0-5 SEEN Ur Squamous Epith Cells 0 SEEN Ur Transition Epith Cell 5-10 SEEN Urine Bacteria 3+ Urine Mucus 0 SEEN Radiography Diagnostic Testing: Clinical Impression(s) from Imaging Studies Abdomen/Pelvis CT 06/20/22 16:37 IMPRESSION: (NOT LISTED IN ORDER OF SIGNIFICANCE) The appendix is visualized and appears unremarkable. There is free fluid in the pelvis. This can be physiologic. Hysterectomy. Other findings as above. Electronically Signed: Enoc Jiménez MD at 17:15 EDT Reading Location ID and State: [facility] / [place] , Service support , Discharge Plan Triage Chief Complaint: Abd Pain ED Provider: Refugio Melo Dx/Rx/DC Orders Instructions: ED Abdominal Pain Unkn Cause Fem Prescriptions: New ondansetron 4 mg tablet,disintegrating 4 mg PO Q8H PRN (Reason: nausea and vomiting) Qty: 14 0RF No Action epinephrine 0.3 MG syringe 0.3 mg IM X1 Qty: 2 0RF Primary Care Provider: Jac Fonseca Referrals: Jac Fonseca MD [Primary Care Provider] - Disposition Disposition: Home, Self Care
[2022-04-21] MEDS: Morphine 4 MG/ML Syringe IV (15:19)
[2022-04-21] MEDS: Ondansetron 4 MG/2 ML Vial IV (15:19)
[2022-04-21 15:26] LABS: Absolute Lymphocyte Count 1.69 X10^3/uL (0.83-4.51); Absolute Neutrophil Count 4.1 X10^3/uL (2.0-7.7); Basophil# 0.05 X10^3/uL; Basophil% 0.8 % (0-1); Eosinophil# 0.08 X10^3/uL; Eosinophils% 1.2 % (0-5); Hematocrit 42.4 % (37-47); Hemoglobin 14.2 g/dL (12.0-15.0); Lymphocyte # 1.69 X10^3/ul (0.83-4.51); Lymphocyte % 26.1 % (19-41); Mean Corp Hgb Conc 33.5 g/dL (32-36); Mean Corpuscular Volume 89.6 fL (81-99); Mean Platelet Vol. 9.3 fl (6.2-12.0); Monocyte# 0.53 X10^3/uL; Monocyte% 8.2 % (0-10); NRBC Flagged by Analyzer 0 % (0-5); Neutrophil % 63.4 % (47-70); Platelet Count 325 K/mm3 (150-450); RBC Distribution Width CV 12.3 % (11.6-14.6); RBC Distribution Width SD 40.7 fl (35.1-43.9); Red Blood Count 4.73 M/mm3 (4.2-5.4); White Blood Count 6.5 K/mm3 (4.4-11.0)
[2022-04-21 15:37] LABS: Mucous, Urine 0 SEEN /hpf (<or=2+); Red Blood Cells-Urine 0 SEEN /hpf (0-5); Squamous Epithelial Cells - UA 0 SEEN /hpf (5-10)
[2022-04-21 15:41] LABS: AST(SGOT) 18 U/L (15-37); Alanine Aminotransfer ALT/SGPT 51 U/L (13-56); Albumin, Serum 3.8 g/dL (3.2-5.0); Alkaline Phosphatase 62 U/L (45-117); Anion Gap 6 (5-15); BUN 9 mg/dL (7-18); BUN/Creat Ratio 13.6 RATIO (10-20); Calcium,Total 9.2 mg/dL (8.5-10.1); Chloride 108 mmol/L (98-107); Creatinine, Serum 0.66 mg/dL (0.55-1.02); EST Glomerular Filtration Rate 111 mL/min (>60); Est Glom Filt Rate - Afr Amer 134 mL/min (>60); Estimated Creatinine Clearance 106.65 ml/min; Globulin 3.7 g/dL (2.2-4.2); Glucose 94 mg/dL (74-106); Lipase 120 U/L (73-393); Potassium 3.9 mmol/L (3.5-5.1); Protein, Total 7.5 g/dL (6.4-8.2); Sodium Level 138 mmol/L (136-145)
[2022-04-21 15:56] LABS: Color, Urine Yellow (Yellow); Glucose, Dipstick Normal (Normal); Ketone-Dipstick Negative (Negative); Leukocyte Esterase-Dipstick Negative /ul (Negative); Nitrite-Dipstick Negative (Negative); Occult Blood-Urine Negative /ul (Negative); Protein-Dipstick Negative (Negative); Specific Gravity, Urine 1.025 (1.002-1.030); Urine Bilirubin Dipstick Negative (Negative); Urine Clarity Sl. Cloudy (Clear); Urine Urobilinogen Normal (Normal)
[2022-04-21 16:19] LABS: Internal QC Validated? YES +Cl - CLEAR BKGD; Pregnancy, Serum, hCG Quali. NEGATIVE Negative
--- NOTE | 2022-04-21 16:37 | CT_ITS ---
STUDY: CT Abdomen And Pelvis W/ Contrast Injection 04/21/2022 5:12 PM REASON FOR EXAM: Female, 32 years old. ABDOMINAL PAIN RLQ abdominal pain TECHNIQUE: Transaxial images were obtained without oral contrast, and with IV 100mL Isovue-300 intravenous contrast. Individualized dose optimization techniques were used for this CT. COMPARISON: 06.30.16. FINDINGS: The visualized lung bases are unremarkable. The visualized portions of the heart are within normal limits. Unremarkable liver. There is non-visualization of the gallbladder, which may be secondary to either contraction or a prior cholecystectomy. Unremarkable spleen. Unremarkable pancreas. Unremarkable bilateral adrenal glands. No acute findings of the right kidney. No acute findings of the left kidney. Unremarkable visualized stomach. Unremarkable small intestine. Unremarkable colon. The appendix is visualized and appears unremarkable. There are no acute findings of the abdominal aorta. Unremarkable inferior vena cava. Subcentimeter mesenteric lymph nodes. Unremarkable urinary bladder. There is absence of the uterus consistent with a prior hysterectomy. There is free fluid in the pelvis. This can be physiologic. There is an umbilical hernia containing fat. Unremarkable osseous structures. CT/Abdomen/Pelvis W IV Cont ONLY IMPRESSION: (NOT LISTED IN ORDER OF SIGNIFICANCE) The appendix is visualized and appears unremarkable. There is free fluid in the pelvis. This can be physiologic. Hysterectomy. Other findings as above. Electronically Signed: Enoc Jiménez MD at 17:15 EDT ,
[2022-04-21 16:46] VITALS: BP 113/69; PULSE 63; RESP 16; O2SAT 95
[2022-04-21 17:27] LABS: Bacteria 3+ /hpf (None Seen); Transitional Epithelial - Ur 5-10 SEEN /hpf (0-5)
[2022-04-21 17:28] LABS: White Blood Cells 0-5 SEEN /hpf (0-5)
[2022-04-21 17:50] VITALS: BP 113/78; PULSE 62; RESP 15; O2SAT 98
== END 2022-04-21 17:51 | disposition home or self-care (01) ==
PROVIDERS: Emergency Provider Student in an Organized Health Care Education/Training Program; PCP Family Medicine; Visit Provider Student in an Organized Health Care Education/Training Program
DX: R10.9 Unspecified abdominal pain (principal); R19.7 Diarrhea, unspecified; R50.9 Fever, unspecified; R11.0 Nausea; F41.9 Anxiety disorder, unspecified; Z79.899 Other long term (current) drug therapy; Z90.49 Acquired absence of other specified parts of digestive tract; Z87.891 Personal history of nicotine dependence
CPT/HCPCS: 74177; 80053; 81001; 83690; 84703; 85025; 96374; 96375; 99283; Q9967; A4216; J2405

== ENCOUNTER 2023-02-03 11:08 | Emergency (ER) | payer MEDICAID, SELFPAY ==
[2023-02-03 11:09] VITALS: BP 144/88; PULSE 85; RESP 16; TEMP 36.9; O2SAT 97; BMI 37.8
--- NOTE | 2023-02-03 11:22 | CT_ITS ---
STUDY: CT SOFT TISSUE NECK WITH CONTRAST REASON FOR EXAM: Female, 32 years old. Throat pain, difficulty swallowing. Fever. RADIATION DOSAGE (If Supplied By Facility): CTDIvol = ( 17.13 ) mGy, DLP = ( 415.06 ) mGycm TECHNIQUE: The patient was scanned in a multi-detector CT scanner. High resolution transaxial imaging was performed following intravenous administration of 100 CC ISOVUE 300. Sagittal and coronal images were reconstructed. Individualized dose optimization techniques were used for this CT. COMPARISON: None. FINDINGS: Normal bilateral parotid glands. Normal bilateral [place] spaces. Normal bilateral parapharyngeal spaces. Normal bilateral carotid spaces. Normal bilateral sublingual and submandibular glands and spaces. Normal visualized nasopharynx. Normal retropharyngeal space. Normal perivertebral space. Normal visualized bilateral faucial tonsils. The visualized tongue, tongue base and oropharynx are normal. There are minimally enlarged lymph nodes of the neck, with preservation of normal laurita architecture, consistent with a reactive lymph hyperplasia. There is no demonstrated solid or cystic mass lesion. There is no abnormal contrast enhancement. Normal epiglottis, bilateral vallecula and hypopharynx. The pre-epiglottic and paraglottic adipose spaces are normal. Normal visualized bilateral piriform sinuses, aryepiglottic folds, vocal cords, and arytenoid-cricoid articulations. Normal subglottic trachea. There is a 7.2 mm x 9 mm hypodense nodule in the lower pole of the left lobe of the thyroid. Normal visualized pulmonary apices. Normal visualized paranasal sinuses. Spondylosis and disc space narrowing at the C6-C7 level. CT/Soft Tissue Neck WITH Contrast IMPRESSION: 7.2 mm x 9 mm hypodense nodule in the lower pole of the left lobe of the thyroid. Electronically Signed: Ralph Arteaga MD at 12:06 EDT ,
--- NOTE | 2023-02-03 11:24 | EX.ED.DYSGE1 ---
HPI History of Present Illness Chief Complaint: General Illness Detail of Chief Complaint: Sore throat, cough, difficulty swallowing Informant: patient Narrative Narrative: Patient presents to the emergency department with symptoms of*about a week ago. Patient states she developed a fever and a scratchy throat. Patient denies recent sick exposures. Patient developed a cough yesterday. Denies chest pain. Patient describes this discomfort in her throat which makes it difficult to swallow food and difficult to eat. Patient feels like her voice is more hoarse. She has had prior tonsillectomy. Cough at times productive with some thick yellow phlegm PFSH PFS Medical History Anxiety Asthma Depression Hx of abdominal abscess Small bowel obstruction Home Medications epinephrine 0.3 mg/0.3 mL injection, auto-injector 0.3 mg (0.3 mL) IM X1 ##2 04/07/17 [Rx Last Taken Unknown] ondansetron 4 mg disintegrating tablet 4 mg PO Q8H PRN nausea and vomiting #14 tabs 04/21/22 [Rx Last Taken Unknown] prednisone 20 mg tablet 20 mg PO BID #10 tabs 02/03/23 [Rx Last Taken Unknown] Allergy/AdvReac Type Severity Reaction Status Date / Time acetaminophen [From Tylenol] Allergy Anaphylaxis Verified 04/21/22 14:36 aspirin Allergy Hives Verified 04/21/22 14:36 ibuprofen Allergy Anaphylaxis Verified 04/21/22 14:36 ketorolac [From Toradol] Allergy Anaphylaxis Verified 02/03/23 11:09 monosodium glutamate [msg] Allergy Hives Verified 09/13/22 16:08 oxycodone HCl [From Percocet] Allergy Shortness Verified 04/21/22 14:36 of breath peanut Allergy Shortness Verified 04/21/22 14:36 of breath strawberry [[place]] Allergy Hives Verified 04/21/22 14:36 venom-honey bee Allergy Shortness Verified 04/21/22 14:36 [bee venom (honey bee)] of breath water chestnut Allergy Hives Verified 04/21/22 14:36 TEA Allergy Rash Uncoded 04/21/22 14:36 Surgical History Hx of cholecystectomy Social History Smoking Status: Former smoker ROS ROS ED Review of Systems ROS Unobtainable: other Constitutional Constitutional ED: Reports lethargy; Denies chills, fever(s), sweats or weight loss Eyes Eyes: Denies blurry vision, change in vision or diplopia ENT ENT ED: Reports sore throat; Denies rhinorrhea Cardiovascular Cardiovascular: Denies chest pain, orthopnea or racing heartbeat Respiratory/Chest Respiratory/Chest: Reports cough and dyspnea; Denies dyspnea on exertion, orthopnea or sputum Gastrointestinal Gastrointestinal: Denies abdominal pain, diarrhea, nausea or vomiting Genitourinary Genitourinary ED: Denies dysuria, hematuria or urinary frequency Musculoskeletal Musculoskeletal: Denies arthralgias, back pain, myalgias or neck pain Integumentary Denies abscess, Abrasions or rash Neurologic Neurologic: Denies headache(s) or weakness Psychiatric Psychiatric: Denies anxiety, depression or suicidal thoughts Endocrine Endocrinology: Denies polydipsia, polyphagia or polyuria Hematologic/Lymphatic Hematologic/Lymphatic: Denies easy bleeding, easy bruising or lymphadenopathy Allergic/Immunologic Allergic/Immunologic ED: Denies mouth swelling, tongue swelling or urticaria EXAM Physical Exam Const Vital Signs: 02/03/23 11:09 02/03/23 11:23 Temperature 98.4 F Temperature Source Temporal Pulse Rate 85 Respiratory Rate 16 Respiratory Effort Normal Respiratory Pattern Normal Blood Pressure 144/88 H Blood Pressure Mean 106 Pulse Ox 97 Oxygen Delivery Method Room Air Positive well nourished and well developed General Appearance ED: well developed and NAD HEENT Reports TM's clear and moist mucous membranes HEENT Narrative: Mild pharyngeal erythema. Uvula midline. No trismus. Patient does have tenderness palpation over the trachea. No masses palpated. No significant anterior posterior lymphadenopathy noted. normocephalic and atraumatic; Negative for trauma or tenderness Tympanic Membrane ED: Yes TM's clear Eyes PERRL and EOMs intact bilaterally General Eye ED: Negative for pale conjunctiva or scleral icterus Neck no lymphadenopathy, supple and no JVD General: Negative for tenderness Chest Wall inspection of chest normal and palpation of chest normal Chest: Negative for tenderness Resp normal respiratory effort and clear to auscultation bilaterally Effort and Inspection: Negative for respiratory distress or pain with movement Auscultation: Negative for rhonchi, wheezes or diminished lung sounds Cardio regular rate, regular rhythm, S1 normal heart sound, S2 normal heart sound and no murmurs Peripheral Pulses: pulses 2+ throughout GI normal to inspection, nondistended, normoactive bowel sounds, soft to palpation, non-tender, non-distended and no masses Back/Spine no CVA tenderness and no thoracic nor lumbar tenderness Extremity normal to inspection General Extremety ED: Negative for edema General Extremity: Negative for edema Neuro oriented x3, CN's II-XII intact bilaterally, no sensory deficits noted and gait normal Sensorium / Orientation: awake, alert, oriented to person, oriented to place and oriented to time Motor Exam: strength 5/5 throughout and strength abnormal Psych mental status grossly normal Skin no rashes or lesions noted and no wounds MDM MDM MDM Narrative Medical decision making narrative: Patient had an IV line established. She had a CBC with differential that was normal. Chemistries normal. Rapid strep was negative. Influenza COVID testing was negative. Patient had a chest x-ray that showed no acute disease process. CT scan of the soft tissue neck with contrast obtained showed a nodule in the thyroid otherwise no acute abnormalities. Clinically I suspect viral upper respiratory infection. I do not feel antibiotics are indicated. Patient will be started on albuterol and given prednisone for a few days. Patient advised to follow-up with primary care physician within next 5 to 7 days. Discharged home stable condition. Patient advised to follow-up with her PCP regarding the thyroid nodule as this may need further evaluation such as possibly ultrasound. Patient understands and will follow-up. Lab Data Labs: Laboratory Results - last 24 hr 02/03/23 02/03/23 11:33 11:33 WBC 5.0 RBC 4.74 Hgb 14.2 Hct 42.9 MCV 90.5 MCH 30.0 MCHC 33.1 RDW Std Deviation 44.1 H RDW Coeff of Cheri 13.2 Plt Count 318 MPV 9.5 Immature Gran % (Auto) 0.400 Neut % (Auto) 61.7 Lymph % (Auto) 27.2 [place] % (Auto) 8.5 Eos % (Auto) 1.6 Baso % (Auto) 0.6 Absolute Neuts (auto) 3.1 Absolute Lymphs (auto) 1.37 Nucleated RBC % 0 Sodium 138 Potassium 3.8 Chloride 106 Carbon Dioxide 27.0 Anion Gap 5 BUN 11 Creatinine 0.71 Estim Creat Clear Calc 99.14 Est GFR (MDRD) Af Amer 123 Est GFR (MDRD) Non-Af 102 BUN/Creatinine Ratio 15.5 Glucose 97 Calcium 9.4 Radiography Diagnostic Testing: Clinical Impression(s) from Imaging Studies Soft Tissue Neck CT 02/03/23 11:22 IMPRESSION: 7.2 mm x 9 mm hypodense nodule in the lower pole of the left lobe of the thyroid. Electronically Signed: Ralph Arteaga MD at 12:06 EDT , Chest X-Ray 02/03/23 11:50 IMPRESSION: Normal x-ray examination of the chest. Electronically Signed: Ralph Arteaga MD at 12:01 EDT , Discharge Plan Triage Chief Complaint: General Illness ED Provider: Letitia Alvarez Dx/Rx/DC Orders Clinical Impression: Viral URI Instructions: ED URI, Viral, No Abx (Adult) Prescriptions: New prednisone 20 mg tablet 20 mg PO BID Qty: 10 0RF No Action epinephrine 0.3 MG syringe 0.3 mg IM X1 Qty: 2 0RF ondansetron 4 mg tablet,disintegrating 4 mg PO Q8H PRN (Reason: nausea and vomiting) Qty: 14 0RF Primary Care Provider: Chantal Patel [employer]SEM[employer]ER Referrals: Jac Fonseca MD [Non-Staff] - 3-5 Days Disposition Disposition: Home, Self Care
[2023-02-03 11:45] LABS: Absolute Lymphocyte Count 1.37 X10^3/uL (0.83-4.51); Absolute Neutrophil Count 3.1 X10^3/uL (2.0-7.7); Basophil# 0.03 X10^3/uL; Basophil% 0.6 % (0-1); Eosinophil# 0.08 X10^3/uL; Eosinophils% 1.6 % (0-5); Hematocrit 42.9 % (37-47); Hemoglobin 14.2 g/dL (12.0-15.0); Lymphocyte # 1.37 X10^3/ul (0.83-4.51); Lymphocyte % 27.2 % (19-41); Mean Corp Hgb Conc 33.1 g/dL (32-36); Mean Corpuscular Volume 90.5 fL (81-99); Mean Platelet Vol. 9.5 fl (6.2-12.0); Monocyte# 0.43 X10^3/uL; Monocyte% 8.5 % (0-10); NRBC Flagged by Analyzer 0 % (0-5); Neutrophil % 61.7 % (47-70); Platelet Count 318 K/mm3 (150-450); RBC Distribution Width CV 13.2 % (11.6-14.6); RBC Distribution Width SD 44.1 fl (35.1-43.9); Red Blood Count 4.74 M/mm3 (4.2-5.4)
--- NOTE | 2023-02-03 11:50 | RAD_ITS ---
STUDY: X-RAY CHEST REASON FOR EXAM: Female, 32 years old. Cough. Fevers. Chest congestion. TECHNIQUE: Single AP portable view of the chest. COMPARISON: Comparison is made with prior study dated December 09, 2021. FINDINGS: The lungs are clear and expanded. There is no demonstrated pleural abnormality. Normal size heart. Normal mediastinum and bessy. Normal visualized pulmonary arteries. Normal visualized aortic arch and descending thoracic aorta. Normal visualized thoracic spine. Normal visualized ribs, clavicles, and shoulders. There is no demonstrated abnormality of the visualized soft tissue structures of the upper abdomen. RAD/Chest 1 View (Portable) IMPRESSION: Normal x-ray examination of the chest. Electronically Signed: Ralph Arteaga MD at 12:01 EDT ,
[2023-02-03 12:04] LABS: Anion Gap 5 (5-15); BUN 11 mg/dL (7-18); BUN/Creat Ratio 15.5 RATIO (10-20); Calcium,Total 9.4 mg/dL (8.5-10.1); Chloride 106 mmol/L (98-107); Creatinine, Serum 0.71 mg/dL (0.55-1.02); EST Glomerular Filtration Rate 102 mL/min (>60); Est Glom Filt Rate - Afr Amer 123 mL/min (>60); Estimated Creatinine Clearance 99.14 ml/min; Glucose 97 mg/dL (74-106); Potassium 3.8 mmol/L (3.5-5.1); Sodium Level 138 mmol/L (136-145)
[2023-02-03 12:42] LABS: Internal QC Validated? YES +Cl - CLEAR BKGD; Monotest Negative (Negative)
[2023-02-03] MEDS: Albuterol Sulfate 8 gm Inhaler (60 puffs) 2 PUFF INHALATION (12:49)
[2023-02-03 13:01] VITALS: BP 118/78; PULSE 75; RESP 16; TEMP 36.6; O2SAT 99
== END 2023-02-03 13:02 | disposition home or self-care (01) ==
PROVIDERS: Emergency Provider Emergency Medicine; PCP Nurse Practitioner; Visit Provider Emergency Medicine
DX: J06.9 Acute upper respiratory infection, unspecified (principal); E04.1 Nontoxic single thyroid nodule; Z87.891 Personal history of nicotine dependence; J45.909 Unspecified asthma, uncomplicated; Z79.52 Long term (current) use of systemic steroids
CPT/HCPCS: 70491; 71045; 80048; 85025; 86308; 87428; 87880; 94640; 99283; Q9967

== ENCOUNTER → 2023-05-12 | Outpatient (CLI) | payer MEDICAID, SELFPAY ==
--- NOTE | 2023-05-12 | FLU_PTH ---
PATIENT: LESLIE GUTIERREZ LOC: [facility]#:[id number] AGE/SX: 33/F ROOM: RE05/12/[address]: Dr. Haseeb Porras MD : 1990 BED: DIS: 05/12/2023 SPEC #: [id number] RECD: 05/12/23 09:16 STATUS: LENORA VAIBHAV #: [id number] LINDA: 05/12/23 00:[address]: Haseeb Porras DEPT: CYTOLOGY RECD BY: Tyson Rainey ENTERED: 05/13/23 09:18 SP TYPE: Fluid OTHR DR: Chantal Strickland, MD PHYSICIAN DERMATOLOGIST-C Tissues: A - Thyroid gland, NOS B - Thyroid gland, NOS Procedures: Special Stain Group II Surgery Specimen Level IV Cytospin Fluid HEADER OPERATION: Fine needle aspiration of left thyroid PRE-OP DIAGNOSIS: Abnormal ultrasound TISSUE SUBMITTED: A. FNA left thyroid fluid, B. FNA left thyroid slides DIAGNOSIS CYTOLOGY A. FNA left thyroid fluid (cytospin and cell block): Negative for malignant cells. See comment. B. FNA left thyroid (smears): Consistent with chronic lymphocytic thyroiditis. [place] category II. Adequate for evaluation. SJ: 05/14/2023 COMMENT A. The specimen shows rare follicular cells. Correlation with clinical, radiologic findings and appropriate follow up are necessary. The [place] System for thyroid diagnostic categorization was used in the evaluation of this case. CYTOLOGY STUDY Slides are reviewed. CYTOLOGY GROSS A. Received is 30 ml of light brownish cloudy fluid labeled with the patient's name and and designated per the requisition as FNA left thyroid. Submitted for cytology preparation including cell block. B. Received are 12 smears labeled with the patient's name and designated per the requisition as FNA left thyroid. Submitted for staining. /SHEA:[email or web address] 05/13/23 TC:5 CPT: 38190, 61996, 58376
== END | disposition home or self-care (01) ==
PROVIDERS: PCP Nurse Practitioner; Referring Provider Surgery; Visit Provider Surgery
DX: R93.89 Abnormal findings on diagnostic imaging of other specified body structures (principal)
CPT/HCPCS: 88108; 88305; 88313

== ENCOUNTER 2023-10-05 16:05 | Emergency (ER) | payer MEDICAID, SELFPAY ==
[2023-10-05 16:08] VITALS: BP 144/95; PULSE 78; RESP 18; TEMP 36.4; O2SAT 98; BMI 40.1
--- NOTE | 2023-10-05 17:55 | CT_ITS ---
INDICATION: abdominal pain EXAMINATION: CT ABDOMEN AND PELVIS with CONTRAST - CT Abdomen And Pelvis W/ Contrast Injection TECHNIQUE: Multiple axial images were obtained of the abdomen and pelvis following administration of IV contrast. Planar reconstructions obtained. A radiation dose optimization technique was used for this scan. RADIATION DOSAGE (If Supplied By Facility): CTDIvol = ( 17.66 ) mGy, DLP = ( 1646.07 ) mGycm IV Contrast dosage and agent: 100 mL Isovue-300 Oral contrast: None. COMPARISON: 04/21/2022 FINDINGS: LOWER THORAX: Lungs are clear. Cardiac contour is normal, no pericardial effusion. No coronary vascular calcifications noted. HEPATOBILIARY: Liver: The liver is homogeneous and shows no evidence of focal lesion. There is diffuse fatty infiltration. Gallbladder: The gallbladder is unremarkable. Pancreas: Pancreas is normal size configuration and density. No mass is noted. Spleen: The spleen is homogeneous and normal in size. . BOWEL: Stomach: The stomach is normal in size configuration, no evidence of focal masses, abnormal calcifications. No hiatal hernia noted. Bowel: Small and large have normal configuration, no masses or bowel obstruction noted. Appendix: The visualized appendix has normal appearance.: GENITOURINARY: Adrenals: Both adrenal glands are normal in size. Kidneys: Kidneys appear symmetric in size. No calcifications are seen in the collecting system. There is no hydronephrosis or surrounding fluid. Bladder: Normal Pelvic organs: Status post hysterectomy. No pelvic masses or adenopathy. RETROPERITONEUM: There is normal appearance of the abdominal aorta and inferior vena cava. LYMPH NODES: No evidence of retroperitoneal or para-aortic masses fluid collections or adenopathy. PERITONEAL CAVITY: There is trace nonspecific fluid in the cul-de-sac. ANTERIOR ABDOMINAL WALL: No hernia noted. Muscular anterior abdominal wall is intact. BONES AND SOFT TISSUES: The skeleton shows no evidence for fractures or destructive lesions. OTHER: None CT/Abdomen/Pelvis W IV Cont ONLY IMPRESSION: 1. No masses bowel obstruction abscess or free air. 2. Trace, likely physiologic nonspecific fluid in the cul-de-sac. 3. No evidence of renal calcification or obstructive uropathy. 4. Status post hysterectomy. No pelvic masses. Electronically Signed: Marvin Romano MD at 19:17 EST ,
[2023-10-05 18:05] VITALS: BP 128/76; PULSE 83; RESP 16; TEMP 37; O2SAT 98
--- NOTE | 2023-10-05 18:11 | EX.ED.DYSGE1 ---
HPI <MODESTA Enriquez - Last Filed: 10/05/23 20:43> History of Present Illness Chief Complaint: Abscess Narrative Narrative: Patient presenting today with concerns for a erythemic lesion to her left upper thigh that she has had for the past month but over the past few days has become more red. She reports that she does have a history of staph infections. She also reports that she has had intermittent loose stools over the past week and over the past few days has had nausea, weakness, and abdominal pain. She denies any fever, chills, vomiting, melena, hematochezia, and urinary symptoms. She reports a surgical history of cholecystectomy and hysterectomy. PFSH <MODESTA Enriquez - Last Filed: 10/05/23 20:43> [facility] Medical History Anxiety Asthma Depression Hx of abdominal abscess Small bowel obstruction Home Medications epinephrine 0.3 mg/0.3 mL injection, auto-injector 0.3 mg (0.3 mL) IM X1 ##2 04/07/17 [Rx Last Taken Unknown] doxycycline hyclate 100 mg capsule 100 mg PO BID 5 days #9 caps 10/05/23 [Rx Last Taken Unknown] ondansetron 4 mg disintegrating tablet 4 mg PO Q8H PRN PRN Nausea #10 tabs 10/05/23 [Rx Last Taken Unknown] Allergy/AdvReac Type Severity Reaction Status Date / Time Food Allergies: Uncoded Allergy Unknown Rash Verified 10/05/23 16:07 acetaminophen [From Tylenol] Allergy Anaphylaxis Verified 10/05/23 16:07 aspirin Allergy Hives Verified 10/05/23 16:07 ibuprofen Allergy Anaphylaxis Verified 10/05/23 16:07 ketorolac [From Toradol] Allergy Anaphylaxis Verified 10/05/23 16:07 monosodium glutamate [msg] Allergy Hives Verified 10/05/23 16:07 oxycodone HCl [From Percocet] Allergy Shortness Verified 10/05/23 16:07 of breath peanut Allergy Shortness Verified 10/05/23 16:07 of breath strawberry [Gardner] Allergy Hives Verified 10/05/23 16:07 venom-honey bee Allergy Shortness Verified 10/05/23 16:07 [bee venom (honey bee)] of breath water chestnut Allergy Hives Verified 10/05/23 16:07 Surgical History H/O: hysterectomy Hx of cholecystectomy Social History Smoking Status: Former smoker ROS <MODESTA Enriquez - Last Filed: 10/05/23 20:43> ROS ED Constitutional Constitutional ED: Denies chills or fever(s) Cardiovascular Cardiovascular: Denies chest pain Respiratory/Chest Respiratory/Chest: Denies cough or dyspnea Gastrointestinal Gastrointestinal: Reports abdominal pain, diarrhea and nausea; Denies constipation, melena or vomiting Genitourinary Genitourinary ED: Denies dysuria, hematuria or urinary urgency Musculoskeletal Musculoskeletal: Denies arthralgias or myalgias Integumentary Reports abscess Neurologic Neurologic: Denies weakness EXAM <MODESTA Enriquez - Last Filed: 10/05/23 20:43> Physical Exam Const Vital Signs: 10/05/23 16:08 10/05/23 18:05 Temperature 97.5 F L 98.6 F Temperature Source Temporal Temporal Pulse Rate 78 83 Respiratory Rate 18 16 Blood Pressure 144/95 H 128/76 H Blood Pressure Mean 111 93 Pulse Ox 98 98 Oxygen Delivery Method Room Air Room Air Positive well nourished, well developed and no apparent distress General Appearance ED: well developed HEENT Reports normocephalic and head/scalp atraumatic Mouth ED: Yes moist mucous membranes normal Eyes PERRL and EOMs intact bilaterally Neck full ROM and supple Chest Wall inspection of chest normal Resp normal respiratory effort and clear to auscultation bilaterally Cardio regular rate and regular rhythm GI non-distended and no masses GI Narrative: Generalized tenderness to palpation without any rigidity, guarding, or peritoneal signs. Palpation: soft Back/Spine normal ROM and normal to inspection Extremity normal to inspection and full ROM Neuro oriented x3, CN's II-XII intact bilaterally, moves all extremities, no focal motor deficits and no sensory deficits noted Sensorium / Orientation: awake and alert Psych mental status grossly normal and thought process normal Skin Skin Narrative: Small nickel sized fluctuant abscess to the left anterior proximal thigh with surrounding erythema. <Federico Eden MD - Last Filed: 10/05/23 22:42> Physical Exam Const Vital Signs: 10/05/23 16:08 10/05/23 18:05 Temperature 97.5 F L 98.6 F Temperature Source Temporal Temporal Pulse Rate 78 83 Respiratory Rate 18 16 Blood Pressure 144/95 H 128/76 H Blood Pressure Mean 111 93 Pulse Ox 98 98 Oxygen Delivery Method Room Air Room Air [facility] <MODESTA Enriquez - Last Filed: 10/05/23 20:43> [facility] Narrative Medical decision making narrative: Patient presenting due to multiple complaints. She reports nausea, abdominal pain, and diarrhea over the last several days. She also has an abscess to left thigh that has been there for the past month but seem to worsen over the last few days. She is nontoxic-appearing. Vitals are unremarkable. Labs will be obtained to rule out leukocytosis, anemia, electrolyte abnormality, hepatobiliary etiology, ANA, and UTI. She was given IV fluids, Zofran. CT of the abdomen and pelvis will be obtained given her generalized abdominal tenderness to rule out appendicitis, diverticulitis, kidney stone, and other abdominal etiology. Labs overall are unremarkable, UA negative for UTI, CT abdomen pelvis is unremarkable. The abscess was cleaned with Betadine and then unroofed with a small incision using a #11 blade. A small amount of purulent material was expelled from the wound and wound was bandaged with bacitracin ointment, wound was too small for packing. She will be started on doxycycline with first dose here. She also be given a prescription for Zofran and discharged home in stable condition. She is comfortable with plan. Lab Data Attestation: I reviewed the patient's lab results. Labs: Laboratory Results - last 24 hr 10/05/23 10/05/23 18:24 18:28 WBC 6.6 RBC 4.32 Hgb 13.2 Hct 39.1 MCV 90.5 MCH 30.6 MCHC 33.8 RDW Std Deviation 41.4 RDW Coeff of Cheri 12.5 Plt Count 300 MPV 9.6 Immature Gran % (Auto) 0.300 Neut % (Auto) 64.2 Lymph % (Auto) 27.1 [place] % (Auto) 7.1 Eos % (Auto) 0.8 Baso % (Auto) 0.5 Absolute Neuts (auto) 4.3 Absolute Lymphs (auto) 1.79 Nucleated RBC % 0 Sodium 139 Potassium 3.5 Chloride 107 Carbon Dioxide 25.0 Anion Gap 7 BUN 13 Creatinine 0.64 Estim Creat Clear Calc 108.97 Est GFR (MDRD) Af Amer 138 Est GFR (MDRD) Non-Af 114 BUN/Creatinine Ratio 20.3 H Glucose 92 Calcium 9.2 Total Bilirubin 0.90 AST 13 L ALT 36 Alkaline Phosphatase 69 Total Protein 7.1 Albumin 3.8 Globulin 3.3 Albumin/Globulin Ratio 1.2 Lipase 40 Urine Color Yellow Urine Clarity Sl. Cloudy Urine pH 5.0 Ur Specific [place] 1.030 Urine Protein 15 H Urine Glucose (UA) Normal Urine Ketones 5 H Urine Occult Blood 10 H Urine Nitrite Negative Urine Bilirubin Negative Urine Urobilinogen Normal Ur Leukocyte Esterase Negative Urine RBC 0-5 SEEN Urine WBC 0-5 SEEN Ur Squamous Epith Cells 0-5 SEEN Urine Bacteria RARE Urine Mucus RARE Radiography Diagnostic Testing: Clinical Impression(s) from Imaging Studies Abdomen/Pelvis CT 10/05/23 17:55 IMPRESSION: 1. No masses bowel obstruction abscess or free air. 2. Trace, likely physiologic nonspecific fluid in the cul-de-sac. 3. No evidence of renal calcification or obstructive uropathy. 4. Status post hysterectomy. No pelvic masses. Electronically Signed: Marvin Romano MD at 19:17 EST , <Federico Eden MD - Last Filed: 10/05/23 22:42> [facility] Narrative Medical decision making narrative: Patient presenting due to multiple complaints. She reports nausea, abdominal pain, and diarrhea over the last several days. She also has an abscess to left thigh that has been there for the past month but seem to worsen over the last few days. She is nontoxic-appearing. Vitals are unremarkable. Labs will be obtained to rule out leukocytosis, anemia, electrolyte abnormality, hepatobiliary etiology, ANA, and UTI. She was given IV fluids, Zofran. CT of the abdomen and pelvis will be obtained given her generalized abdominal tenderness to rule out appendicitis, diverticulitis, kidney stone, and other abdominal etiology. Labs overall are unremarkable, UA negative for UTI, CT abdomen pelvis is unremarkable. The abscess was cleaned with Betadine and then unroofed with a small incision using a #11 blade. A small amount of purulent material was expelled from the wound and wound was bandaged with bacitracin ointment, wound was too small for packing. She will be started on doxycycline with first dose here. She also be given a prescription for Zofran and discharged home in stable condition. She is comfortable with plan. Dr. Eden: I have personally performed a face to face assessment of the patient and have reviewed the JUANITA Note. I performed a substantive portion of the visit including all aspects of the following. My chew findings include: History is nausea, vomiting, diarrhea, abscess on left anterior thigh times days. Exam is afebrile. Vital signs noted. Nontoxic-appearing. Abdomen soft, nontender, with normal active bowel sounds. Positive abscess/pustule on left anterior thigh with surrounding erythema. Medical Decision Making: Check labs. Check CT. Incision and drainage. I reviewed the radiology report of the CT of the abdomen pelvis which shows no evidence of acute process, no bowel obstruction or colitis. Discharged on antibiotics for abscess. Follow-up primary care/gastroenterology. Other additions or changes: [None] History & Record Review Discussion w/independent historian: Patient Additional record(s) reviewed:: Prior ED visit Lab Data Labs: Laboratory Results - last 24 hr 10/05/23 10/05/23 18:24 18:28 WBC 6.6 RBC 4.32 Hgb 13.2 Hct 39.1 MCV 90.5 MCH 30.6 MCHC 33.8 RDW Std Deviation 41.4 RDW Coeff of Cheri 12.5 Plt Count 300 MPV 9.6 Immature Gran % (Auto) 0.300 Neut % (Auto) 64.2 Lymph % (Auto) 27.1 [place] % (Auto) 7.1 Eos % (Auto) 0.8 Baso % (Auto) 0.5 Absolute Neuts (auto) 4.3 Absolute Lymphs (auto) 1.79 Nucleated RBC % 0 Sodium 139 Potassium 3.5 Chloride 107 Carbon Dioxide 25.0 Anion Gap 7 BUN 13 Creatinine 0.64 Estim Creat Clear Calc 108.97 Est GFR (MDRD) Af Amer 138 Est GFR (MDRD) Non-Af 114 BUN/Creatinine Ratio 20.3 H Glucose 92 Calcium 9.2 Total Bilirubin 0.90 AST 13 L ALT 36 Alkaline Phosphatase 69 Total Protein 7.1 Albumin 3.8 Globulin 3.3 Albumin/Globulin Ratio 1.2 Lipase 40 Urine Color Yellow Urine Clarity Sl. Cloudy Urine pH 5.0 Ur Specific [place] 1.030 Urine Protein 15 H Urine Glucose (UA) Normal Urine Ketones 5 H Urine Occult Blood 10 H Urine Nitrite Negative Urine Bilirubin Negative Urine Urobilinogen Normal Ur Leukocyte Esterase Negative Urine RBC 0-5 SEEN Urine WBC 0-5 SEEN Ur Squamous Epith Cells 0-5 SEEN Urine Bacteria RARE Urine Mucus RARE Radiography Diagnostic Testing: Clinical Impression(s) from Imaging Studies Abdomen/Pelvis CT 10/05/23 17:55 IMPRESSION: 1. No masses bowel obstruction abscess or free air. 2. Trace, likely physiologic nonspecific fluid in the cul-de-sac. 3. No evidence of renal calcification or obstructive uropathy. 4. Status post hysterectomy. No pelvic masses. Electronically Signed: Marvin Romano MD at 19:17 EST Reading Location ID and State: [address] [place] [address] Tel , Service support , Discharge Plan Triage Chief Complaint: Abscess Other Complaint: Nausea/Vomiting ED Midlevel Provider: Gauri Cheng ED Provider: Federico Eden Dx/Rx/DC Orders Clinical Impression: Abscess, Diarrhea, Abdominal pain, Nausea Instructions: Abdominal Pain, Abscess Drainage, ED Diarrhea, Unknown Cause Prescriptions: New doxycycline hyclate 100 mg capsule 100 mg PO BID 5 Days Qty: 9 0RF ondansetron 4 mg tablet,disintegrating 4 mg PO Q8H PRN PRN (Reason: Nausea) Qty: 10 0RF No Action epinephrine 0.3 MG syringe 0.3 mg IM X1 Qty: 2 0RF Primary Care Provider: Care Physician,No Primary Referrals: Care Physician,No Primary [Primary Care Provider] - Activity Restrictions/Additional Instructions: Return for any worsening of your symptoms, follow-up with your PCP. Disposition Disposition: Home, Self Care Discharge Date/Time: 10/05/23 20:13
[2023-10-05] MEDS: Ondansetron 4 MG/2 ML Vial IV (18:17)
[2023-10-05] MEDS: 0.9% Normal Saline (1000mL) 1,000 ML 999 ML IV (18:17)
[2023-10-05 18:39] LABS: Color, Urine Yellow (Yellow); Glucose, Dipstick Normal (Normal); Ketone-Dipstick 5 mg/dl (Negative); Leukocyte Esterase-Dipstick Negative /ul (Negative); Nitrite-Dipstick Negative (Negative); Occult Blood-Urine 10 /ul (Negative); Protein-Dipstick 15 mg/dl (Negative); Urine Bilirubin Dipstick Negative (Negative); Urine Clarity Sl. Cloudy (Clear); Urine Urobilinogen Normal (Normal)
[2023-10-05 18:40] LABS: Absolute Lymphocyte Count 1.79 X10^3/uL (0.83-4.51); Absolute Neutrophil Count 4.3 X10^3/uL (2.0-7.7); Basophil# 0.03 X10^3/uL; Basophil% 0.5 % (0-1); Eosinophil# 0.05 X10^3/uL; Eosinophils% 0.8 % (0-5); Hematocrit 39.1 % (37-47); Hemoglobin 13.2 g/dL (12.0-15.0); Lymphocyte # 1.79 X10^3/ul (0.83-4.51); Lymphocyte % 27.1 % (19-41); Mean Corp Hgb Conc 33.8 g/dL (32-36); Mean Corpuscular Hgb 30.6 pg (27.0-32.0); Mean Corpuscular Volume 90.5 fL (81-99); Mean Platelet Vol. 9.6 fl (6.2-12.0); Monocyte# 0.47 X10^3/uL; Monocyte% 7.1 % (0-10); NRBC Flagged by Analyzer 0 % (0-5); Neutrophil # 4.25 X10^3/uL (2.7-7.7); Neutrophil % 64.2 % (47-70); Platelet Count 300 K/mm3 (150-450); RBC Distribution Width CV 12.5 % (11.6-14.6); RBC Distribution Width SD 41.4 fl (35.1-43.9); Red Blood Count 4.32 M/mm3 (4.2-5.4); White Blood Count 6.6 K/mm3 (4.4-11.0)
[2023-10-05 18:46] LABS: Red Blood Cells-Urine 0-5 SEEN /hpf (0-5); White Blood Cells 0-5 SEEN /hpf (0-5)
[2023-10-05 18:47] LABS: Bacteria RARE /hpf (None Seen); Mucous, Urine RARE /hpf (<or=2+); Squamous Epithelial Cells - UA 0-5 SEEN /hpf (5-10)
[2023-10-05 18:53] LABS: ALB/GLOB Ratio 1.2 RATIO (0.9-2.4); AST(SGOT) 13 U/L (15-37); Alanine Aminotransfer ALT/SGPT 36 U/L (13-56); Albumin, Serum 3.8 g/dL (3.2-5.0); Alkaline Phosphatase 69 U/L (45-117); Anion Gap 7 (5-15); BUN 13 mg/dL (7-18); BUN/Creat Ratio 20.3 RATIO (10-20); Calcium,Total 9.2 mg/dL (8.5-10.1); Chloride 107 mmol/L (98-107); Creatinine, Serum 0.64 mg/dL (0.55-1.02); EST Glomerular Filtration Rate 114 mL/min (>60); Est Glom Filt Rate - Afr Amer 138 mL/min (>60); Estimated Creatinine Clearance 108.97 ml/min; Globulin 3.3 g/dL (2.2-4.2); Glucose 92 mg/dL (74-106); Lipase 40 U/L (13-75); Potassium 3.5 mmol/L (3.5-5.1); Protein, Total 7.1 g/dL (6.4-8.2); Sodium Level 139 mmol/L (136-145)
[2023-10-05] MEDS: Lidocaine 1% (20 ml mdv) 20 ML Vial 10 ML INFILT (19:44)
[2023-10-05] MEDS: Doxycycline 100 MG CAPSULE PO (20:08)
== END 2023-10-05 20:13 | disposition home or self-care (01) ==
PROVIDERS: Physician Assistant; Emergency Provider Emergency Medicine; Visit Provider Emergency Medicine
DX: L02.416 Cutaneous abscess of left lower limb (principal); R11.2 Nausea with vomiting, unspecified; R10.9 Unspecified abdominal pain; R19.7 Diarrhea, unspecified; R53.1 Weakness; Z87.891 Personal history of nicotine dependence
CPT/HCPCS: 10061; 10060; 74177; 80053; 81001; 83690; 85025; 96361; 96374; 99284; J7030; Q9967; A4216; J2405

== ENCOUNTER 2023-11-23 19:21 | Emergency (ER) | payer MEDICAID, SELFPAY ==
[2023-11-23 19:22] VITALS: BP 155/80; PULSE 96; RESP 19; TEMP 36.3; O2SAT 96; BMI 40.7
--- NOTE | 2023-11-23 19:32 | CT_ITS ---
STUDY: CT ABDOMEN AND PELVIS WITH CONTRAST REASON FOR EXAM: Female, 33 years old. rlq pain RADIATION DOSAGE (If Supplied By Facility): CTDIvol = ( 15.26 ) mGy, DLP = ( 1350.80 ) mGycm TECHNIQUE: Transaxial images were obtained from the dome of the diaphragm to the symphysis pubis without oral contrast. IV 100mL Isovue-370 was administered. Sagittal and coronal images were reconstructed. Individualized dose optimization techniques were used for this CT. COMPARISON: 10/05/2023. FINDINGS: Exam limited by patient size. Lung bases grossly clear There is decreased attenuation of the liver consistent with steatosis. There is hepatomegaly. Nonvisualized gallbladder. No bile duct distention. Normal spleen. Normal pancreas. Normal bilateral adrenal glands. Normal right kidney. Normal left kidney. Evaluation of the GI tract is limited by absence of oral contrast. Cannot exclude stomach wall thickening. No dilated loops of bowel or evidence for obstruction. Cannot exclude segmental thickening of the zaidi of the small or large bowel. Cannot exclude enteritis or colitis. Appendix within normal limits. Normal abdominal aorta. Normal inferior vena cava. Normal retroperitoneum. Normal urinary bladder. There is absence of the uterus consistent with a prior hysterectomy. Normal abdominal wall. Normal osseous structures. CT/Abdomen/Pelvis W IV Cont ONLY IMPRESSION: No definite acute or significant abnormality seen. Electronically Signed: Francisco Mares MD at 20:44 EST ,
--- NOTE | 2023-11-23 19:34 | EDS_ITS ---
HPI <MODESTA Faust - Last Filed: 11/23/23 20:56> History of Present Illness Chief Complaint: Abd Pain Narrative Narrative: 33-year-old female with past medical history of cholecystectomy, hysterectomy presents with periumbilical abdominal pain that started last evening. She thought it was an upset stomach from eating. It seemed to radiate to the right lower quadrant. Pain worsened today and she had a fever of 103F this morning and took Aleve. It did not help the pain. She has been nauseous and vomiting. She was brought in by EMS who gave IV morphine 4 mg and Zofran 4 mg which she states only helped slightly. She has no bladder or bowel changes. She denies drinking alcohol. PFSH <MODESTA Faust - Last Filed: 11/23/23 20:56> [facility]LY [facility] Medical History Anxiety Asthma Depression Hx of abdominal abscess Small bowel obstruction Home Medications epinephrine 0.3 mg/0.3 mL injection, auto-injector 0.3 mg (0.3 mL) IM X1 ##2 04/07/17 [Rx Last Taken Unknown] dicyclomine 10 mg capsule 20 mg (2 x 10 mg) PO BID PRN abdominal pain 5 days #10 caps 11/23/23 [Rx Last Taken Unknown] ondansetron 4 mg disintegrating tablet 4 mg PO Q6H #12 tabs 11/23/23 [Rx Last Taken Unknown] Allergy/AdvReac Type Severity Reaction Status Date / Time Food Allergies: Uncoded Allergy Unknown Rash Verified 11/23/23 19:30 acetaminophen [From Tylenol] Allergy Anaphylaxis Verified 11/23/23 19:30 aspirin Allergy Hives Verified 11/23/23 19:30 ibuprofen Allergy Anaphylaxis Verified 11/23/23 19:30 ketorolac [From Toradol] Allergy Anaphylaxis Verified 11/23/23 19:30 monosodium glutamate [msg] Allergy Hives Verified 11/23/23 19:30 oxycodone HCl [From Percocet] Allergy Shortness Verified 11/23/23 19:30 of breath peanut Allergy Shortness Verified 11/23/23 19:30 of breath strawberry [Henderson] Allergy Hives Verified 11/23/23 19:30 venom-honey bee Allergy Shortness Verified 11/23/23 19:30 [bee venom (honey bee)] of breath water chestnut Allergy Hives Verified 11/23/23 19:30 Surgical History H/O: hysterectomy Hx of cholecystectomy Social History Smoking Status: Former smoker ROS <MODESTA Faust - Last Filed: 11/23/23 20:56> ROS ED ROS Narrative Constitutional: Positive for fever. CVS: Negative for chest pain, syncope. Respiratory: Negative for shortness of breath. GI: Positive for abdominal pain, nausea, vomiting. Negative for diarrhea, constipation, melena, hematochezia. : Negative for dysuria, hematuria or frequency. EXAM <MODESTA Faust - Last Filed: 11/23/23 20:56> Physical Exam Narrative Exam Narrative: CONST: Patient sitting in no acute distress. EYES: Normal inspection. NECK: Normal inspection. RESP: No respiratory distress, CTAB. CVS: Regular rate and rhythm, no murmur, no gallop. ABD: Soft with tenderness in multiple areas including epigastrium, periumbilical region, right lower quadrant; no guarding or rebound, nondistended, no hepatosplenomegaly. Back: Normal inspection, no CVA tenderness. SKIN: Color normal, no rash, warm, dry, intact. EXTREMITIES: Normal appearance, no pedal edema. NEURO: Oriented x4. PSYCH: Normal affect. Const Vital Signs: 11/23/23 19:22 Temperature 97.3 F L Temperature Source Temporal Pulse Rate 96 Respiratory Rate 19 H Blood Pressure 155/80 H Blood Pressure Mean 105 Pulse Ox 96 Oxygen Delivery Method Room Air <Dr. Ruperto Lama, DO - Last Filed: 11/23/23 20:59> Physical Exam Const Vital Signs: 11/23/23 19:22 Temperature 97.3 F L Temperature Source Temporal Pulse Rate 96 Respiratory Rate 19 H Blood Pressure 155/80 H Blood Pressure Mean 105 Pulse Ox 96 Oxygen Delivery Method Room Air MDM <MODESTA Faust - Last Filed: 11/23/23 20:56> MDM MDM Narrative Medical decision making narrative: History gathered from: Patient and family member Patient had 2 days of periumbilical pain that worsened today with fever and vomiting. She appears uncomfortable but nontoxic. Vital signs stable. She has diffuse abdominal tenderness in the epigastric, periumbilical, and right lower quadrant. Soft with no peritoneal signs. She already had her gallbladder removed and hysterectomy so differential includes appendicitis and diverticulitis among others. CBC, CMP, lipase are within normal limits. CT shows no acute process. Normal appendix. Urinalysis has no evidence of infection. Not sure the etiology of her pain but she is feeling improved after IV morphine and Zofran. She was still nauseous but not vomiting and was given Phenergan. I prescribed Zofran for home, recommended [id number] analgesia, and she has PCP follow-up scheduled. She was discharged in stable condition. Lab Data Attestation: I reviewed the patient's lab results. Labs: Laboratory Results - last 24 hr 11/23/23 11/23/23 19:28 20:29 WBC 7.5 RBC 4.72 Hgb 14.1 Hct 42.4 MCV 89.8 MCH 29.9 MCHC 33.3 RDW Std Deviation 41.2 RDW Coeff of Cheri 12.5 Plt Count 307 MPV 9.6 Immature Gran % (Auto) 0.400 Neut % (Auto) 57.3 Lymph % (Auto) 31.4 [place] % (Auto) 8.5 Eos % (Auto) 1.5 Baso % (Auto) 0.9 Absolute Neuts (auto) 4.3 Absolute Lymphs (auto) 2.36 Nucleated RBC % 0 Sodium 139 Potassium 3.6 Chloride 108 H Carbon Dioxide 23.0 Anion Gap 8 BUN 13 Creatinine 0.73 Estim Creat Clear Calc 132.50 Est GFR (MDRD) Af Amer 118 Est GFR (MDRD) Non-Af 98 BUN/Creatinine Ratio 17.8 Glucose 96 Calcium 9.4 Total Bilirubin 0.80 AST 21 ALT 57 H Alkaline Phosphatase 77 Total Protein 7.5 Albumin 3.9 Globulin 3.6 Albumin/Globulin Ratio 1.1 Lipase 44 Urine Color Yellow Urine Clarity Clear Urine pH 5.0 Ur Specific Chauvin 1.015 Urine Protein 15 H Urine Glucose (UA) Normal Urine Ketones Negative Urine Occult Blood Negative Urine Nitrite Negative Urine Bilirubin Negative Urine Urobilinogen Normal Ur Leukocyte Esterase Negative Urine RBC 0 SEEN Urine WBC 0 SEEN Ur Squamous Epith Cells 0 SEEN Urine Bacteria 0 SEEN Urine Mucus 0 SEEN Radiography Diagnostic Testing: Clinical Impression(s) from Imaging Studies Abdomen/Pelvis CT 11/23/23 19:32 IMPRESSION: No definite acute or significant abnormality seen. Electronically Signed: Francisco Mares MD at 20:44 EST , <Dr. Ruperto Lama, DO - Last Filed: 11/23/23 20:59> [facility] Lab Data Labs: Laboratory Results - last 24 hr 11/23/23 11/23/23 19:28 20:29 WBC 7.5 RBC 4.72 Hgb 14.1 Hct 42.4 MCV 89.8 MCH 29.9 MCHC 33.3 RDW Std Deviation 41.2 RDW Coeff of Cheri 12.5 Plt Count 307 MPV 9.6 Immature Gran % (Auto) 0.400 Neut % (Auto) 57.3 Lymph % (Auto) 31.4 [place] % (Auto) 8.5 Eos % (Auto) 1.5 Baso % (Auto) 0.9 Absolute Neuts (auto) 4.3 Absolute Lymphs (auto) 2.36 Nucleated RBC % 0 Sodium 139 Potassium 3.6 Chloride 108 H Carbon Dioxide 23.0 Anion Gap 8 BUN 13 Creatinine 0.73 Estim Creat Clear Calc 132.50 Est GFR (MDRD) Af Amer 118 Est GFR (MDRD) Non-Af 98 BUN/Creatinine Ratio 17.8 Glucose 96 Calcium 9.4 Total Bilirubin 0.80 AST 21 ALT 57 H Alkaline Phosphatase 77 Total Protein 7.5 Albumin 3.9 Globulin 3.6 Albumin/Globulin Ratio 1.1 Lipase 44 Urine Color Yellow Urine Clarity Clear Urine pH 5.0 Ur Specific Chauvin 1.015 Urine Protein 15 H Urine Glucose (UA) Normal Urine Ketones Negative Urine Occult Blood Negative Urine Nitrite Negative Urine Bilirubin Negative Urine Urobilinogen Normal Ur Leukocyte Esterase Negative Urine RBC 0 SEEN Urine WBC 0 SEEN Ur Squamous Epith Cells 0 SEEN Urine Bacteria 0 SEEN Urine Mucus 0 SEEN Radiography Diagnostic Testing: Clinical Impression(s) from Imaging Studies Abdomen/Pelvis CT 11/23/23 19:32 IMPRESSION: No definite acute or significant abnormality seen. Electronically Signed: Francisco Mares MD at 20:44 EST , CT scan of the abdomen pelvis was obtained. The appendix was visualized and was normal. There is no acute abnormality noted. There is no bowel obstruction or perforation. There is no free air or free fluid. This was interpreted by the radiologist and was also independently reviewed by myself. Treatment and Re-Evaluation :: I have personally performed a face to face assessment of the patient and have reviewed the JUANITA Note. I performed a substantive portion of the visit including all aspects of the following. My hcew findings include: History: Patient presents with abdominal pain that began yesterday. Patient states it is gradually gotten worse. Patient states it has been constant. Patient states her pain is sharp. Patient states the pain is over the periumbilical and right lower quadrant areas. Patient states it is worse with movement and with standing. Patient admits to some nausea and vomiting. Patient denies any hematemesis or coffee-ground emesis. Patient denies any diarrhea, melena, or hematochezia. Patient admits to some urinary frequency but denies any dysuria or hematuria. Exam: Vital signs are stable. Patient is afebrile. Patient is in no acute distress. Oral mucosa is pink and moist. Neck is supple. Trachea is midline. There is no JVD. Heart was regular rate and rhythm. Lungs are clear and equal bilaterally. Abdomen is soft. Bowel sounds are normal. There is tenderness over the right lower abdomen and periumbilical area. There is also some mild tenderness in the right upper abdomen. There is no rebound or guarding noted. Cranial nerves II through XII are intact. There are no focal motor or sensory deficits noted. Medical Decision Making: Differential diagnosis includes appendicitis, ureteral calculus, pancreatitis, gastroenteritis, bowel obstruction, perforation, and ovarian cyst. CBC will be obtained to assess for leukocytosis and anemia. Comprehensive metabolic profile will be obtained to assess for hepatic function, renal function, and electrolyte abnormality. Lipase will be obtained to assess for pancreatitis. Urinalysis will be obtained to assess for urinary tract infection and hematuria. CT scan of the abdomen pelvis will be obtained to assess for pancreatitis and ureteral calculus. CBC was reviewed and was within normal limits. Comprehensive metabolic profile was reviewed and was within normal limits. Lipase was reviewed and was normal at 44. Urinalysis was reviewed. There is no evidence of urinary tract infection or hematuria. CT scan of the abdomen pelvis was obtained. There is no free air or free fluid noted. There is no evidence of bowel obstruction or perforation. The appendix was visualized and was normal. This was interpreted by the radiologist and was also independently reviewed by myself. Patient was advised of her findings. Patient was instructed to follow-up with her primary care physician in 5 to 7 days. Patient understood and was agreeable with the plan. All questions were answered. Discharge Plan Triage Chief Complaint: Abd Pain ED Midlevel Provider: Franchesca Catherine ED Provider: Ruperto Lama Dx/Rx/DC Orders Clinical Impression: Abdominal pain, Nausea and vomiting Instructions: Abdominal Pain Prescriptions: New ondansetron 4 mg tablet,disintegrating 4 mg PO Q6H Qty: 12 0RF dicyclomine 10 mg capsule 20 mg PO BID PRN (Reason: abdominal pain) 5 Days Qty: 10 0RF No Action epinephrine 0.3 MG syringe 0.3 mg IM X1 Qty: 2 0RF Primary Care Provider: Care Physician,No Primary Referrals: Care Physician,No Primary [Primary Care Provider] - Activity Restrictions/Additional Instructions: I prescribed Bentyl which treats abdominal pain and spasm and Zofran as needed for nausea and vomiting. Follow-up with your primary care doctor. Disposition Disposition: Home, Self Care
[2023-11-23] MEDS: Morphine 4 MG/ML Syringe IV (19:43)
[2023-11-23 19:50] LABS: Absolute Lymphocyte Count 2.36 X10^3/uL (0.83-4.51); Absolute Neutrophil Count 4.3 X10^3/uL (2.0-7.7); Basophil# 0.07 X10^3/uL; Basophil% 0.9 % (0-1); Eosinophil# 0.11 X10^3/uL; Eosinophils% 1.5 % (0-5); Hematocrit 42.4 % (37-47); Hemoglobin 14.1 g/dL (12.0-15.0); Lymphocyte # 2.36 X10^3/ul (0.83-4.51); Lymphocyte % 31.4 % (19-41); Mean Corp Hgb Conc 33.3 g/dL (32-36); Mean Corpuscular Hgb 29.9 pg (27.0-32.0); Mean Corpuscular Volume 89.8 fL (81-99); Mean Platelet Vol. 9.6 fl (6.2-12.0); Monocyte# 0.64 X10^3/uL; Monocyte% 8.5 % (0-10); NRBC Flagged by Analyzer 0 % (0-5); Neutrophil % 57.3 % (47-70); Platelet Count 307 K/mm3 (150-450); RBC Distribution Width CV 12.5 % (11.6-14.6); RBC Distribution Width SD 41.2 fl (35.1-43.9); Red Blood Count 4.72 M/mm3 (4.2-5.4); White Blood Count 7.5 K/mm3 (4.4-11.0)
--- OUTSIDE RECORDS SUMMARY | 2023-11-23 20:02 | XMS RPT_ITS | CCD ---
Author Name Unknown Address [address] [place] [address] Organization [facility] Care Team Providers Care Guest Service Representative Name Role Phone DAY, FEDE Christopher Unavailable Unavailable PROVIDER, UNKNOWN Unavailable Unavailable Catterlin, Marvin Unavailable Unavailable CATTERLIN, NANCY P Unavailable Unavailable CATTERLIN, NANCY P Unavailable Unavailable CATTERLIN, NANCY P Unavailable Unavailable CATTERLIN, NANCY P Unavailable Unavailable DAY GOYAL Unavailable Unavailable NO, FAMILY PHYSICIAN Unavailable Unavailable SANDRO, DANIELA Unavailable Unavailable NO, FAMILY PHYSICIAN Unavailable Unavailable DANGELO, MARIAM Unavailable Unavailable CATTERLIN, NANCY P Unavailable Unavailable HOUSTON DURAN Unavailable Unavailable CATTERLIN, NANCY P Unavailable Unavailable SANDRO, DANIELA Unavailable Unavailable FRED, DEEP Unavailable Unavailable CARL CALVO Unavailable Unavailable LAROSE, LONA Unavailable Unavailable LAROSE, LONA Unavailable Unavailable LAROSE, LONA Unavailable Unavailable LAROSE, LONA Unavailable Unavailable LAROSE, LONA Unavailable Unavailable LAROSE, LONA Unavailable Unavailable LAROSE, LONA Unavailable Unavailable LAROSE, LONA Unavailable Unavailable LAROSE, LONA Unavailable Unavailable LAROSE, LONA Unavailable Unavailable LAROSE, LONA Unavailable Unavailable LAROSE, LONA Unavailable Unavailable LAROSE, LONA Unavailable Unavailable LAROSE, LONA Unavailable Unavailable LAROSE, LONA Unavailable Unavailable LAROSE, LONA Unavailable Unavailable LAROSE, LONA Unavailable Unavailable LAROSE, LONA Unavailable Unavailable LAROSE, LONA Unavailable Unavailable LAROSE, LONA Unavailable Unavailable LAROSE, LONA Unavailable Unavailable LAROSE, LONA Unavailable Unavailable LAROSE, LONA Unavailable Unavailable LAROSE, LONA Unavailable Unavailable LAROSE, LONA Unavailable Unavailable LAROSE, LONA Unavailable Unavailable LAROSE, LONA Unavailable Unavailable LAROSE, LONA Unavailable Unavailable LAROSE, LONA Unavailable Unavailable LAROSE, LONA Unavailable Unavailable LAROSE, LONA Unavailable Unavailable LAROSE, LONA Unavailable Unavailable LAROSE, LONA Primary Care Provider PREETHI PIÑA Attending Provider PREETHI PIÑA Referring Provider ASAF SERVIN Emergency Provider PREETHI TOVAR Emergency Provider [phone] Larose , OFFICE SERVICES ASSOCIATE BC, Lona Unavailable Unavailable Primary Care Provider Unavailarcenio e Knoble OFFICE SERVICES ASSOCIATE.KASSANDRA, Anjel Primary Care Provider ANJEL HOLLEY Attending Unavailable KNOBLE, ANJEL Referring Unavailable KNOBLE, ANJEL Primary Care Unavailable KNOBLE, ANJEL Primary Care Unavailable KNOBLE, ANJEL Referring Unavailable KNOBLE, ANJEL Primary Care Unavailable KNOBLE, ANJEL Referring Unavailable GUSTABO TOVAR Referring Unavailable KNOBLE, ANJEL Primary Care Unavailable BIA, HASEEB P Attending Unavailable KNOBLE, ANJEL Primary Care Unavailable BIAARASHEL P Attending Unavailable KNOBLE, ANJEL Primary Care Unavailable KNOBLE, ANJEL Primary Care Unavailable KRISTIE HERNANDEZ R Referring Unavailable NAZARIO, CHANTAL M Referring Unavailable SIDDHARTH INGRAMINE Attending Unavailable ATHY, KRISTIE R Referring Unavailable KUFAHL, AZUCENA Referring Unavailable KUFAHL, AZUCENA Referring Unavailable ARI CANDELARIO Referring Unavailable ARI CANDELARIO Referring Unavailable NAZARIO, CHANTAL M Attending Unavailable Unavailable Unavailable Unavailable Unavailable Unavailable Unavailable Unavailable Unavailable Unavailable Allergies Allergy Classification Reported Allergen(s) Allergy Type Date of Onset Reaction(s) Facility Acetaminophen (4 sources) Acetaminophen Drug Allergy 03-15-20 Anaphylaxis [facility] Work Phone: Aspirin (4 sources) Aspirin Drug Allergy 03-15-20 20 Anaphylaxis [facility] Work Phone: Bee pollen (4 sources) Bee pollen Drug Allergy 03-15-20 Anaphylaxis [facility] Work Phone: Berries (3 sources) strawberry Food Allergy 10-26-20 20 Anaphylaxis [facility] Work Phone: Glutamate (1 source) Glutamate Drug Allergy 03-15-20 [facility]om[facility] Negron Work Phone: GREEN TEA LEAF EXTRACT (1 source) GREEN TEA LEAF EXTRACT Drug Allergy 03-15-20 Anaphylaxis [facility] Dr[facility] Negron Work Phone: NSAIDs (8 sources) Ibuprofen Drug Allergy 03-15-20 Morbilliform eruption, Anaphylaxis [facility] Work Phone: Nuts (not including peanuts) (4 sources) tree nut, unspecified; Translations: [tree nut] Food Allergy 03-15-20 Anaphylaxis [facility] Work Phone: Opioid Agonists (11 sources) HYDROcodone; Translations: [hydrocodone] Drug Allergy 03-15-20 Anaphylaxis [facility] Work Phone: Peanuts and Peanut Containing Products (3 sources) peanut Food Allergy 10-26-20 Anaphylaxis [facility] Work Phone: POMEGRANATE FRUIT EXTRACT (1 source) POMEGRANATE FRUIT EXTRACT Drug Allergy 03-15-20 Anaphylaxis [facility] Negron Work Phone: risperiDONE (4 sources) risperiDONE Drug Allergy 03-15-20 Anaphylaxis [facility] Work Phone: strawberry allergenic extract (1 source) strawberry allergenic extract Drug Allergy 03-15-20 Anaphylaxis [facility] Negron Work Phone: Unclassified (1 source) Honey Drug allergy 03-15-20 Anaphylaxis [facility] Negron Work Phone: (5 sources) acetaminophen Drug Allergy 09-01-20 18 AOF, Anaphylaxis [facility] (6 sources) aspirin; Translations: [ASPIRIN] Drug Allergy 04-08-20 16 AOF, Anaphylaxis [facility] (5 sources) bee pollen Drug Allergy 09-01-20 18 AOF, Anaphylaxis [facility] (5 sources) Honey Drug allergy (disorder) 09-01-20 18 AOF, Anaphylaxis [facility] (6 sources) ibuprofen; Translations: [IBUPROFEN] Drug Allergy 11-03-19 18 AOF, Rash [facility] (9 sources) oxyCODONE Drug Allergy 09-01-20 18 AOF, Anaphylaxis [facility] (5 sources) oxyCODONE Drug Allergy 09-01-20 18 AOF, Anaphylaxis [facility] (5 sources) peanut allergenic extract Drug Allergy 09-01-20 18 AOF, Anaphylaxis [facility] (5 sources) risperiDONE Drug Allergy 09-01-20 18 AOF, Anaphylaxis [facility] (5 sources) strawberry allergenic extract Drug Allergy 09-01-20 18 AOF, Anaphylaxis [facility] (5 sources) tree nut, unspecified Drug allergy (disorder) 09-01-20 18 AOF, Anaphylaxis [facility] (5 sources) tea tree Drug allergy (disorder) 10-07-20 16 AOF, Anaphylaxis [facility] (20 sources) water chestnut; Translations: [WATER CHESTNUT] Drug allergy (disorder) 04-08-20 16 Hives, Swelling [facility] (9 sources) hydrocodone bitartrate Drug allergy (disorder) 10-07-20 16 AOF, Anaphylaxis [facility] (12 sources) msg; Translations: [msg] Propensity to adverse reactions (disorder) 09-01-20 18 AOF, Vomiting [facility] (12 sources) pomogrante; Translations: [pomogrante] Propensity to adverse reactions (disorder) 09-01-20 18 AOF, Anaphylaxis [facility] (12 sources) tea; Translations: [tea] Propensity to adverse reactions (disorder) 09-01-20 18 AOF, Anaphylaxis [facility] (16 sources) Ketorolac; Translations: [KETOROLAC] Drug Allergy 01-20-20 Anaphylaxis [facility] (4 sources) Acetaminophen Drug Allergy 10-26-20 Anaphylaxis [facility] Work Phone: (20 sources) Aspirin Drug Allergy 04-08-20 16 Rash, Shortness of Breath [facility] Work Phone: (4 sources) Bee pollen Drug Allergy 10-26-20 20 Anaphylaxis [facility] Work Phone: (7 sources) Honey Allergy to substance 10-26-20 20 Anaphylaxis [facility] Work Phone: (20 sources) Ibuprofen Drug Allergy 11-03-19 18 Hives [facility] Work Phone: (4 sources) oxyCODONE Drug Allergy 10-26-20 20 Anaphylaxis [facility] Work Phone: (4 sources) peanut Allergy to substance 10-26-20 20 Anaphylaxis [facility] Work Phone: (4 sources) risperiDONE Drug Allergy 10-26-20 20 Anaphylaxis [facility] Work Phone: (4 sources) strawberry Allergy to substance 10-26-20 20 Anaphylaxis [facility] Work Phone: (4 sources) tree nut, unspecified Allergy to substance 10-26-20 20 Anaphylaxis [facility] Work Phone: (8 sources) tea tree Allergy to substance 03-15-20 20 Anaphylaxis [facility] Work Phone: (20 sources) Acetaminophen / oxyCODONE; Translations: [OXYCODONE-ACETAM INOPHEN] Drug Allergy 04-08-20 16 Rash, Shortness of Breath [facility] Work Phone: (20 sources) peanut; Translations: [PEANUTS] Food Allergy 04-08-20 16 Swelling, Shortness of Breath [facility] Work Phone: (20 sources) [place]; Translations: [STRAWBERRIES] Food Allergy 04-08-20 16 Swelling, Shortness of Breath [facility] Work Phone: (20 sources) Acetomenaphthone; Translations: [ACETOMENAPHTHONE ] Drug Allergy 04-08-20 16 Rash, Shortness of Breath [facility] Work Phone: [phone] (20 sources) Bees; Translations: [BEES] Allergy to substance 04-08-20 16 Rash, Shortness of Breath [facility] Work Phone: (20 sources) Monosodium Glutamate (Msg); Translations: [MONOSODIUM GLUTAMATE (MSG)] Food Allergy 04-08-20 16 Hives, Swelling, Shortness of Breath [facility] Work Phone: (10 sources) traMADol; Translations: [TRAMADOL] Drug Allergy 05-01-20 23 Unknown [facility] Medications Current Medications Medication Drug Class(es) Dates Sig (Normalized) Sig (Original) [id number] 200 actuat albuterol 0.09 mg/actuat metered dose inhaler (20 sources) beta2-Adrenergic Agonist Start: 04-02-2021 Albuterol Hfa Inhaler 90 Mcg/actuation (ProAir HFA) (discharge) [id number] RxNorm 2021-04-02 HFA Inhaler 2 inhalation every 6 hours prn shortness of breath or wheezing Active Completed/Discontinued Medications Medication Drug Class(es) Dates Sig (Normalized) Sig (Original) benzonatate 100 mg oral capsule (11 sources) Non-narcotic Antitussive Start: 11-12-2018 End: 11-16-2018 take 1 capsule by mouth three times daily for cough Benzonatate (Tessalon Perle) 100 MG capsule Discontinued 100 MG PO 3 times per day November 12, 2018 10:08pm November 16, 2018 9:55am one capsule three times a day for cough cephalexin 500 mg oral capsule (10 sources) Cephalosporin Antibacterial Start: 03-17-2020 End: 03-28-2020 take 1 capsule by mouth three times daily Cephalexin (Keflex) 500 MG capsule Discontinued 500 MG PO 3 times per day March 17, 2020 5:53pm March 28, 2020 11:25am dextromethorphan hydrobromide 2 mg/ml / guaiFENesin 20 mg/ml oral solution (11 sources) Uncompetitive B-gltdvs-F-aspartat e Receptor Antagonist, Sigma-1 Agonist Start: 11-08-2018 End: 11-16-2018 take 1 mL by mouth every four to six hours Guaifenesin/Dextr omethorphan (Gs Yissel Dm Cough Syrup) 10-100 mg/5 mL syrup Discontinued 10 ML PO Every 4-6 hours 237 November 08, 2018 12:26pm November 16, 2018 9:55am Problems Active Problems Problem Classification Problem Date Documented Da te Episodic/Chronic Abdominal pain (20 sources) Left lower quadrant pain; Translations: [Unspecified abdominal pain] Onset: 8 Episodic Allergic reactions (20 sources) Allergy, unspecified, initial encounter; Translations: [Allergy to other foods] Onset: 8 Episodic Asthma (15 sources) Mild intermittent asthma, uncomplicated; Translations: [Asthma] Onset: 8 Chronic Calculus of urinary tract (10 sources) Ureteric stone; Translations: [Calculus of ureter] Episodic Disorders of lipid metabolism (2 sources) Mixed hyperlipidemia; Translations: [Hyperlipidemia] Onset: 8 Chronic Disorders of teeth and jaw (11 sources) Jaw pain; Translations: [Jaw pain] Episodic Fluid and electrolyte disorders (12 sources) Hyperkalemia; Translations: [Volume depletion, gastrointestinal loss] Onset: 8 Episodic Gastrointestinal hemorrhage (20 sources) Melena; Translations: [Hematochezia] Onset: 8 Episodic Headache, including migraine (20 sources) Migraine, unspecified, not intractable, without status migrainosus; Translations: [Migraine without aura, intractable, with status migrainosus] Onset: 8 Chronic Headache; including migraine (12 sources) Headache; Translations: [Headache] Episodic Headache; including migraine (1 source) Headache; including migraine; Translations: [Chronic nonintractable headache, unspecified headache type] Onset: 3 Nausea and vomiting (20 sources) Nausea; Translations: [Nausea with vomiting, unspecified] Onset: 8 Episodic Nonmalignant breast conditions (20 sources) Discharge from nipple; Translations: [Pain of breast] Episodic Nonspecific chest pain (10 sources) Chest discomfort; Translations: [Other chest pain] Episodic Nutritional deficiencies (13 sources) Vitamin D deficiency, unspecified; Translations: [Vitamin D deficiency] Onset: 8 Chronic Other connective tissue disease (11 sources) Muscle spasm of cervical muscle of neck; Translations: [Other muscle spasm] Episodic Other connective tissue disease (11 sources) Cramp in lower limb; Translations: [Cramp and spasm] Episodic Other connective tissue disease (11 sources) Pain in lower limb; Translations: [Pain in left leg] Episodic Other connective tissue disease (7 sources) Muscle pain; Translations: [Myalgia, unspecified site] Episodic Other gastrointestinal disorders (11 sources) Irritable bowel syndrome; Translations: [Irritable bowel syndrome without diarrhea] Chronic Other gastrointestinal disorders (2 sources) Diarrhea, unspecified; Translations: [Diarrhea, unspecified] Onset: 8 Episodic Other gastrointestinal disorders (11 sources) Diarrhea; Translations: [Diarrhea, unspecified] Episodic Other gastrointestinal disorders (11 sources) Constipation; Translations: [Constipation, unspecified] Episodic Other injuries and conditions due to external causes (1 source) Injury of left foot; Translations: [Unspecified injury of left foot, initial encounter] 10-15-2023 Episodic Other injuries and conditions due to external causes (1 source) Unspecified injury of left foot, initial encounter; Translations: [Foot injury, left, initial encounter] Onset: 3 Episodic Other lower respiratory disease (8 sources) Dyspnea; Translations: [Shortness of breath] Episodic Other nervous system disorders (1 source) Other chronic pain; Translations: [Chronic nonintractable headache, unspecified headache type] Onset: 3 Chronic Other non-traumatic joint disorders (5 sources) Pain in right shoulder; Translations: [Pain in right elbow] Onset: 8 Episodic Other non-traumatic joint disorders (11 sources) Ankle pain; Translations: [Pain in right ankle and joints of right foot] Episodic Other nutritional; endocrine; and metabolic disorders (2 sources) Morbid (severe) obesity due to excess calories; Translations: [E66.01 - Morbid (severe) obesity due to excess calories] Onset: 8 Chronic Other nutritional; endocrine; and metabolic disorders (2 sources) Body mass index (BMI) 45.0-49.9, adult; Translations: [Z68.42 - Body mass index (BMI) 45.0-49.9, adult] Onset: 8 Chronic Other nutritional; endocrine; and metabolic disorders (11 sources) Obesity; Translations: [Obesity, unspecified] Chronic Other nutritional; endocrine; and metabolic disorders (12 sources) Morbid obesity; Translations: [Morbid (severe) obesity due to excess calories] Onset: 0 Chronic Other nutritional; endocrine; and metabolic disorders (20 sources) Body mass index 40+ - severely obese; Translations: [Morbid (severe) obesity due to excess calories] Onset: 8 03-17-2018 Chronic Other skin disorders (8 sources) Inflammatory dermatosis; Translations: [Dermatitis] Episodic Other upper respiratory disease (11 sources) Allergic rhinitis; Translations: [Allergic rhinitis, unspecified] Chronic Other upper respiratory disease (11 sources) Rhinitis; Translations: [Chronic rhinitis] Chronic Other upper respiratory disease (11 sources) Congestion of nasal sinus; Translations: [Nasal congestion] Episodic Other upper respiratory infections (11 sources) Viral upper respiratory tract infection; Translations: [Acute upper respiratory infection, unspecified] Episodic Otitis media and related conditions (11 sources) Dysfunction of eustachian tube; Translations: [Other specified disorders of Eustachian tube, left ear] Episodic Ovarian cyst (11 sources) Cyst of ovary; Translations: [Unspecified ovarian cyst, unspecified side] Episodic Poisoning by nonmedicinal substances (1 source) Anaphylaxis; Translations: [Toxic effect of contact with unspecified venomous animal, accidental (unintentional), initial encounter] Episodic Residual codes; unclassified (11 sources) Swelling - edema - symptom; Translations: [Edema, unspecified] Episodic Residual codes; unclassified (8 sources) Chronic back pain ; Translations: [Chronic back pain] Episodic Sprains and strains (2 sources) Strain of muscle, fascia and tendon at neck level, initial encounter; Translations: [Strain of muscle, fascia and tendon at neck level, init] Onset: 8 Episodic Thyroid disorders (14 sources) Hypothyroidism; Translations: [Hypothyroidism, unspecified] Onset: 3 Chronic Unclassified (4 sources) Acquired absence of both cervix and uterus; Translations: [Acquired absence of other specified parts of digestive tract] Onset: 8 Episodic Unclassified (2 sources) Unknown / UNK(Unknown) Onset: 8 Unclassified (1 source) Acute right-sided low back pain, unspecified whether sciatica present; Translations: [Acute right-sided low back pain, unspecified whether sciatica present] Onset: 3 Urinary tract infections (10 sources) Urinary tract infectious disease; Translations: [Urinary tract infection, site not specified] Episodic Viral infection (11 sources) Acute viral disease; Translations: [Viral infection, unspecified] Episodic Past or Other Problems Problem Classification Problem Date Documented Da te Episodic/Chronic Diabetes mellitus without complication (2 sources) Impaired fasting glucose; Translations: [Blood glucose abnormal] Onset: 01-25-2018 Episodic Malaise and fatigue (16 sources) Other fatigue; Translations: [Fatigue] Onset: 01-25-2018 Episodic Other connective tissue disease (2 sources) Other muscle spasm; Translations: [M62.838 - Other muscle spasm] Onset: 06-01-2018 Episodic Other liver diseases (1 source) Elevated liver enzymes level Onset: 07-12-2020 Episodic Other lower respiratory disease (1 source) Shortness of breath; Translations: [SOB (shortness of breath)] Onset: 05-01-2023 Episodic Other screening for suspected conditions (not mental disorders or infectious disease) (15 sources) Liver function tests abnormal; Translations: [Other specified abnormal findings of blood chemistry] Onset: 04-24-2023 Episodic Spondylosis; intervertebral disc disorders; other back problems (20 sources) Cervicalgia; Translations: [Neck pain] Onset: 02-20-2018 Episodic Results Test Name Value Interpretation Reference Range Facil ity Vital Signs Date Time Vital Sign Value Performing Clinician Facility 10-15-2023 16:29-0500 Body temperature 99 [degF] Kristie BYERS-C Work Phone: [facility] 10-15-2023 16:29-0500 Body weight 107.5 kg Kristie Hernandez PA-C Work Phone: [facility] 10-15-2023 16:29-0500 Diastolic blood pressure 76 mm[Hg] Kristie Hernandez PA-C Work Phone: [facility] 10-15-2023 16:29-0500 Heart rate 63 /min Kristie Hernandez PA-C Work Phone: [facility] 10-15-2023 16:29-0500 Respiratory rate 18 /min Kristie Hernandez PA-C Work Phone: [facility] 10-15-2023 16:29-0500 SaO2% (BldA) [Mass fraction] 97 % Kristie Hothor PA-C Work Phone: [facility] 10-15-2023 16:29-0500 Systolic blood pressure 115 mm[Hg] Kristie Hernandez PA-C Work Phone: [facility] 05-06-2023 15:01-0400 Body height 162.6 cm Haseeb Porras MD Work Phone: [facility] 05-06-2023 15:01-0400 Body temperature 97.59 [degF] Haseeb Porras MD Work Phone: [facility] 05-06-2023 15:01-0400 Body weight 103.87 kg Haseeb Porras MD Work Phone: [facility] 05-06-2023 15:01-0400 Diastolic blood pressure 88 mm[Hg] Haseeb Porras MD Work Phone: [facility] 05-06-2023 15:01-0400 Heart rate 105 /min Haseeb Porras MD Work Phone: [facility] 05-06-2023 15:01-0400 SaO2% (BldA) [Mass fraction] 97 % Haseeb Porras MD Work Phone: [facility] 05-06-2023 15:01-0400 Systolic blood pressure 122 mm[Hg] Haseeb Porras MD Work Phone: [facility] 04-24-2023 12:32-0400 Body height 162.6 cm Anjel Holley APRN.BREAD JOCKEY Work Phone: [facility] 04-24-2023 12:32-0400 Body weight 105.23 kg Anjel Holley APRN.BREAD JOCKEY Work Phone: [facility] 04-24-2023 12:32-0400 Diastolic blood pressure 88 mm[Hg] Anjel Holley APRN.BREAD JOCKEY Work Phone: [facility] 04-24-2023 12:32-0400 Heart rate 90 /min Anjel Holley OFFICE SERVICES ASSOCIATE.BREAD JOCKEY Work Phone: [facility] 04-24-2023 12:32-0400 Respiratory rate 14 /min Anjel Holley OFFICE SERVICES ASSOCIATE.BREAD JOCKEY Work Phone: [facility] 04-24-2023 12:32-0400 Systolic blood pressure 120 mm[Hg] Anjel Holley OFFICE SERVICES ASSOCIATE.BREAD JOCKEY Work Phone: [facility] 02-24-2023 15:43-0400 Body temperature 98.29 [degF] Azucena Robertfahl PA-C Work Phone: [facility] 02-24-2023 15:43-0400 Body weight 102.15 kg Azucena Robertfahl PA-C Work Phone: [facility] 02-24-2023 15:43-0400 Diastolic blood pressure 86 mm[Hg] Azucena Robertfahl PA-C Work Phone: [facility] 02-24-2023 15:43-0400 Heart rate 101 /min Azucena Kufahl PA-C Work Phone: [facility] 02-24-2023 15:43-0400 Respiratory rate 16 /min Azucena Kufahl PA-C Work Phone: [facility] 02-24-2023 15:43-0400 SaO2% (BldA) [Mass fraction] 99 % Azucena Robertfahl PA-C Work Phone: [facility] 02-24-2023 15:43-0400 Systolic blood pressure 124 mm[Hg] Azucena Kufahl PA-C Work Phone: [facility] 01-21-2023 16:24-0400 Body weight 98.88 kg Chantal Older OFFICE SERVICES ASSOCIATE.[employer]READ [employer]OCKEY Work Phone: [facility] 01-21-2023 16:24-0400 Diastolic blood pressure 84 mm[Hg] Chantal Older OFFICE SERVICES ASSOCIATE.BREAD JOCKEY Work Phone: [facility] 01-21-2023 16:24-0400 Heart rate 98 /min Chantal Older OFFICE SERVICES ASSOCIATE.BREAD [employer]OCKEY Work Phone: [facility] 01-21-2023 16:24-0400 Respiratory rate 14 /min Chantal Older OFFICE SERVICES ASSOCIATE.BREAD JOCKEY Work Phone: [facility] 01-21-2023 16:24-0400 Systolic blood pressure 124 mm[Hg] Chantal Older OFFICE SERVICES ASSOCIATE.BREAD [employer]OCKEY Work Phone: [facility] 01-05-2023 10:49-0500 Body temperature 97.81 [degF] Ari Candelario MD Work Phone: [facility] 01-05-2023 10:49-0500 Body weight 99.79 kg Ari Candelario MD Work Phone: [facility] 01-05-2023 10:49-0500 Diastolic blood pressure 80 mm[Hg] Ari Candelario MD Work Phone: [facility] 01-05-2023 10:49-0500 Heart rate 88 /min Ari Candelario MD Work Phone: [facility] 01-05-2023 10:49-0500 Respiratory rate 18 /min Ari Candelario MD Work Phone: [facility] 01-05-2023 10:49-0500 SaO2% (BldA) [Mass fraction] 98 % Ari Candelario MD Work Phone: [facility] 01-05-2023 10:49-0500 Systolic blood pressure 128 mm[Hg] Ari Candelario MD Work Phone: [facility] 04-02-2021 02:21-0400 Body height 160 cm JORGE Pelletier Mobile Phone: Primary Care - Dr. Negron Work Phone: 04-02-2021 02:21-0400 Body mass index (BMI) [Ratio] 44 kg/m2 JORGE Pelletier Mobile Phone: Primary Care - Dr. Negron Work Phone: 04-02-2021 02:21-0400 Body temperature 98.6 [degF] Lona Larose [facility] Mobile Phone: Primary Care - Dr. Negron Work Phone: 04-02-2021 02:21-0400 Body weight 113 kg Lona Larose [facility] Mobile Phone: Primary Care - Dr. Negron Work Phone: 04-02-2021 02:21-0400 Diastolic blood pressure 74 mm[Hg] Lona Larose [facility] Mobile Phone: Primary Care - Dr. Negron Work Phone: 04-02-2021 02:21-0400 Heart rate 97 /min Lona Larose [employer] Mobile Phone: Primary Care - Dr. Negron Work Phone: 04-02-2021 02:21-0400 Respiratory rate 18 /min Lona Larose [employer] Mobile Phone: Primary Care - Dr. Negron Work Phone: 04-02-2021 02:21-0400 SaO2% (BldA) [Mass fraction] 98 % Lona Larose [employer] Mobile Phone: Primary Care - Dr. Negron Work Phone: 04-02-2021 02:21-0400 Systolic blood pressure 146 mm[Hg] Lona Larose [facility] Mobile Phone: Primary Care - Dr. Negron Work Phone: 10-26-2020 12:04-0500 BP Diastolic 49 mm[Hg] [facility] Work Phone: 10-26-2020 12:04-0500 BP Systolic 127 mm[Hg] [facility] Work Phone: 10-26-2020 12:04-0500 Pulse (Heart Rate) 66 /min [facility] Work Phone: 10-26-2020 12:04-0500 Pulse Oximetry 97 % [facility] Work Phone: 10-26-2020 12:04-0500 Respiratory Rate 18 /min [facility] Work Phone: 10-26-2020 11:18-0500 Body Temperature 99.2 [degF] [facility] Work Phone: 10-26-2020 11:15-0500 BMI (Body Mass Index) 41.2 kg/m2 [facility] Work Phone: 10-26-2020 11:15-0500 Body weight 108.86 kg [facility] Work Phone: 10-26-2020 11:15-0500 Height 162.56 cm [facility] Work Phone: 01-20-2020 19:26-0400 Body Temperature 99.3 [degF] [facility]: 01-20-2020 19:26-0400 BP Diastolic 57 mm[Hg] [facility] Work Phone: 01-20-2020 19:26-0400 BP Systolic 125 mm[Hg] [facility] Work Phone: 01-20-2020 19:26-0400 Pulse (Heart Rate) 73 /min LONANegro LAROSE [facility] Work Phone: 01-20-2020 19:26-0400 Pulse Oximetry 96 % [facility] Work Phone: 01-20-2020 19:26-0400 Respiratory Rate 16 /min [facility] Work Phone: 01-20-2020 16:33-0400 BMI (Body Mass Index) 39.9 kg/m2 [facility] Work Phone: 01-20-2020 16:33-0400 Body weight 108.86 kg [facility] Work Phone: 01-20-2020 16:33-0400 Height 165.1 cm [facility] Work Phone: 01-10-2020 20:04-0400 Body Temperature 98.8 [degF] [facility] Work Phone: 01-10-2020 20:04-0400 BP Diastolic 70 mm[Hg] LONANegro Ricks [facility] Work Phone: 01-10-2020 20:04-0400 BP Systolic 130 mm[Hg] [facility] Work Phone: 01-10-2020 20:04-0400 Pulse (Heart Rate) 78 /min [facility] Work Phone: 01-10-2020 20:04-0400 Pulse Oximetry 99 % LONANegro Ricks [facility] Work Phone: 01-10-2020 20:04-0400 Respiratory Rate 18 /min [facility] Work Phone: 01-10-2020 18:51-0400 BMI (Body Mass Index) 39.9 kg/m2 LONANegro Ricks [facility] Work Phone: 01-10-2020 18:51-0400 Body weight 108.86 kg [facility]ro [facility] Work Phone: 01-10-2020 18:51-0400 Height 165.1 cm LONANegro Ricks [facility] Work Phone: Encounters Encounter Date Encounter Type Care Provider Facility Start: 10-15-2023 End: 10-15-2023 ambulatory ANJEL HOLLEY Facility:[facility] Start: 10-15-2023 End: 10-15-2023 Patient encounter procedure Kristie Hernandez PA-C Work Phone: [facility] Procedures Date Procedure Procedure Detail Performing Clinician Start: 05-12-2023 US THYROID BIOPSY LE FT (POC) SURG USE ONLY Haseeb Porras MD Work Phone: Start: 03-26-2023 Mri brain brain stem w/o w/contrast material Azucena Ingram PA-C Work Phone: Start: 09-04-2021 Follow-up visit Start: 01-02-2021 X-ray of lower limb for bone length measurement Start: 01-02-2021 Complete x-ray serie s of lumbar spine with bending views Start: 01-02-2021 Radiography of cervi quang spine Start: 10-26-2020 CT of chest Start: 01-20-2020 Computed tomography of abdomen and pelvis with contrast LONA LAROSE Start: 01-13-2020 Ultrasonography of breast LONA LAROSE Start: 01-10-2020 Computed tomography of abdomen and pelvis with contrast LONA LAROSE Start: 01-03-2020 Transvaginal echography LONA LAROSE Start: 12-28-2019 End: 12-28-2019 Polymerase chain reaction test for Neisseria gonorrhoeae LONA LAROSE Start: 02-17-2018 COMPREHENSIVE METABO LIC PANEL NANCY CATTERLIN Start: 02-01-2018 NEBULIZER TX INTERMITTENT DAY GOYAL Start: 02-01-2018 NEBULIZER TX INTERMITTENT DAY GOYAL Start: 01-31-2018 PULSE OXIMETRY DAY YANG Start: 01-31-2018 TELEMETRY MONITORING RO MEGHANN GOYAL Start: 01-31-2018 POCT CHEM BASIC W ICA R MARCY GOYAL Start: 01-31-2018 Us abdominal real ti me w/image limited DAY GOYAL Start: 01-31-2018 CBC WITH AUTO DIFFERENTIAL DAY GOYAL Start: 01-31-2018 COMPREHENSIVE METABO LIC PANEL DAY GOYAL Start: 01-31-2018 LACTIC ACID, PLASMA ESCOBAR TRES GOYAL Start: 01-31-2018 LIPASE DAY FRANCISCO Start: 01-31-2018 ED NURSING COMMUNICATION DAY GOYAL Start: 01-31-2018 POC UR-QUAL R MARCYTRES GOYAL Start: 01-31-2018 Microscopic urinalysis DAY GOYAL Start: 01-31-2018 Urinalysis DAY FRANCISCO Start: 01-31-2018 URINE CULTURE DAY SHINE Start: 01-25-2018 CCP ANTIBODIES IGG/IGA NANCY CATTERLIN Start: 01-25-2018 MARLINE-PRADO VIRUS E MAEGAN ANTIGEN ANTIBODY, IGG NANCY CATTERLIN Start: 01-25-2018 MANDY CAT TERLIN Start: 01-25-2018 C-reactive protein GLOR IA CATTERLIN Start: 01-25-2018 EBV IGM NANCY CAT TERLIN Start: 01-25-2018 MARLINE-PRADO VIRUS VCA, IGG NANCY CATTERLIN Start: 01-25-2018 Lipid panel NANCY CAT TERLIN Start: 01-25-2018 MISCELLANEOUS SENDOUT 1 NANCY CATTERLIN Start: 01-25-2018 RHEUMATOID FACTOR DIA A CATTERLIN Start: 01-25-2018 SEDIMENTATION RATE GLOR IA CATTERLIN Start: 01-25-2018 TSH WITHOUT REFLEX GLOR IA CATTERLIN Cholecystectomy Lonanegro Larose , [employer] Mobile Phone: Dilation and curettage Lona Larose , [employer] Mobile Phone: Hysterectomy Lona Petty A PRN Mobile Phone: Laparoscopy Lona , A PRN Mobile Phone: Myringotomy and inse rtion of tympanic ventilation tube Lona Larose , [employer] Mobile Phone: Tonsillectomy and adenoidectomy Lona Larose , [employer] Mobile Phone: Plan of Treatment Date Care Activity Detail Author Start: 02-09-2027 Urine microalbumin profile DTaP,Tdap,Td Vaccine (8 - Td or Tdap) [facility] Start: 07-03-2023 Covid-19 Vaccine ( season) Covid-19 Vaccine () [facility] Start: 07-03-2023 Influenza vaccination C [facility] Start: 04-24-2023 End: 06-24-2023 Hemoglobin A1c in Blood [facility] Work Phone: Payers Date Payer Category Payer Medicaid [id number] 2018 Self-pay 2016 Unknown [id number] 2005 Unknown [id number] Unknown Unknown [id number] 2.16.8 [id number] Unknown [id number] 2.16.8 [id number] Unknown [id number] 2.16.8 [id number] Unknown [id number] 2.16.8 [id number] Unknown [id number] 2.16.8 [id number] Unknown [id number] 2.16.8 [id number] Unknown [id number] 2.16.8 [id number] Unknown [id number] 2.16.8 [id number] Unknown [id number] 2.16.8 [id number] Unknown [id number] 2.16.8 [id number] Unknown [id number] 2.16.8 [id number] Social History Date Type Detail Facility Tobacco smoking stat us KYIS Unknown if ever smoked [facility] Work Phone: Start: 10-07-[address] [facility] Work Phone: Start: 1990 End: 1990 Sex Assigned At Female [facility] Work Phone: Start: 10-26-2020 End: 10-26-2020 Tobacco smoking status NHIS Former Smoker [facility] Work Phone: Start: 01-13-2020 [facility] Work Phone: Start: 03-16-[address] [facility] Work Phone: Start: 10-26-2020 Former Smoker [facility] Work Phone: Start: 11-24-2021 End: 01-14-2023 3 [facility] Work Phone: Start: 01-13-[address] [facility] Work Phone: Start: 04-08-2016 End: 03-16-2020 Tobacco smoking status NHIS Never a smoker [facility] Work Phone: Start: 04-08-2016 Tobacco use and exposure Smoke less tobacco non-user [facility] Work Phone: Start: 01-05-2023 End: 10-15-2023 Alcohol intake Current non-drinker of alcohol (finding) [facility] Start: 11-24-2021 End: 01-14-2023 History SDOH Alcohol Frequency 1 [facility] Start: 11-24-2021 History SDOH Alcohol Std Drinks 98 [facility] Start: 11-24-2021 End: 01-14-2023 History SDOH Social Connections Phone 2 [facility] Start: 11-24-2021 End: 01-14-2023 History SDOH Social Connections Living 6 [facility] Start: 11-24-2021 End: 01-14-2023 History SDOH Stress 5 [facility] Start: 1990 Sex Assigned At Not on file C [facility] Start: 01-14-2023 History SDOH Social Connections Get Together 4 [facility] Start: 01-14-2023 History SDOH Physica l Activity DPW 7 [facility] Start: 01-14-2023 History SDOH Physica l Activity MPS 12 [facility] Start: 01-14-2023 End: 04-24-2023 History of Social function [facility] [place] Start: 01-14-2023 End: 04-24-2023 Social connection and isolation panel [facility] Do you belong to any clubs or organizations such as roman catholic groups, unions, fraternal or athletic groups, or school groups? Yes [facility] Are you now , , , , never or living with a partner? [facility] How often to you hav e a drink containing alcohol? Monthly or less [facility] How many standard dr inks containing alcohol do you have on a typical day? 3 or 4 [facility] How often do you hav e 6 or more drinks on 1 occasion? Never [facility] How hard is it for y ou to pay for the very basics like food, housing, medical care, and heating Very hard [facility] Adult Depression Scr eening Assessment 0 [facility] Work Phone: Do you feel stress - tense, restless, nervous, or anxious, or unable to sleep at night because your mind is troubled all the time - these days [OSQ] Very much [facility] (I/We) worried salina er (my/our) food would run out before (I/we) got money to buy more. Sometimes true [facility] Medical Equipment Procedure Code Equipment Code Equipment Origin al Text Equipment Identifier Dates NEGATED: Highlighted rowProcedure Implant ([id number]) Goals Date Patient Goal Desired Activity /State Mental Status Date Assessment Result Facility 10-26-2020 Cognitive function Person;Place;Time [facility] Work Phone: 01-20-2020 Cognitive function Person;Place;Time [facility] Work Phone: 01-10-2020 Cognitive function Person;Place;Time [facility] Work Phone: Clinical Notes 01-05-2023 to 10-15-2023 Kristie Hernandez PA-C - 10/15/2023 5:42 PM ESTPatient InstructionsTelephone Encounter - Haseeb Porras MD - 05/27/2023 1:30 PM EDTTelephone Encounter - Maria R Bush LPN - 05/18/2023 9:32 AM EDT Note Date & Type Note Facility 10-15-2023 Note HNO ID: [id number] Author: Kristie Hernandez PA-C Service: ? Author Type: Physician Appeals Analyst Type: Progress Notes Filed: 10/15/2023 5:45 PM Note Text: This note was created using NoteWriter. Subjective Alma Gutierrez is a 33 year old female. HPI Presents with left foot pain since for 4 days. She was helping someone get something off of the top shelf at [employer] when she stepped up on the shelf. When she went to step down she missed the shelf and rolled her foot. She is having pain on the side of her foot and ankle. She has been walking on it but it is painful. Review of Systems Constitutional: Negative. HENT: Negative. Respiratory: Negative. Cardiovascular: Negative. Gastrointestinal: Negative. Musculoskeletal: Left foot and ankle pain All other systems reviewed and are negative. PAST MEDICAL HISTORY Diagnosis Date Asthma Biliary calculus with cholecystitis Depression OD 2016-seeing counseling center Hypercholesterolemia Current Outpatient Medications Medication Sig Dispense Refill albuterol HFA (PROVENTIL HFA, VENTOLIN HFA) 90 mcg/actuation inhaler Inhale 2 Puffs as instructed. EPINEPHrine (EPIPEN) 0.3 mg/0.3 mL auto-injector Inject 0.3 mL intramuscularly as needed. 2 Each 1 Current Facility-Administered Medications Medication Dose Route Frequency Provider Last Rate Last Admin perflutren lipid microspheres 1.3 mL in NaCl (PF) 0.9% 10 mL injection (DEFINITY) INTRAVENOUS DIRECTED PRN Anjel Holley, JORGE.KASSANDRA sodium chloride 0.9 % (flush) 10 mL (BD POSIFLUSH) 10 mL INTRAVENOUS DIRECTED PRN Anjel Holley APRN.KASSANDRA PAST SURGICAL HISTORY Procedure Laterality Date ADENOIDECTOMY PRIMARY Adenoidectomy CHOLECYSTECTOMY 04/2016 ENDOMETRIAL ABLTJ THERMAL W/O HYSTEROSCOPIC GUID 02/26/16 HYSTERECTOMY HX 03/18/[address] Gonzalez LAPAROSCOPY SURG CHOLECYSTECTOMY 06/16/16 PAST SURGICAL HISTORY OF DANDC x3 TONSILLECTOMY PRIMARY/SECONDARY Tonsillectomy FAMILY HISTORY Problem Relation Age of Onset Diabetes Mother Ovarian cancer Mother Heart disease Mother Diabetes Father Diabetes Maternal Grandfather Social History Tobacco Use Smoking status: Never Smokeless tobacco: Never Vaping Use Vaping Use: Never used Substance Use Topics Alcohol use: No Drug use: No Objective BP 115/76 Pulse 63 Temp 37.2 ?C (99 ?F) Resp 18 Wt 107.5 kg (237 lb) SpO2 97% BMI 40.68 kg/m? Physical Exam Vitals reviewed. Constitutional: Appearance: Normal appearance. HENT: Head: Normocephalic and atraumatic. Musculoskeletal: Comments: Exam of the foot reveals swelling laterally to the fourth and fifth metatarsal. She is tender on palpation diffusely over the third through fifth metatarsal. Some tenderness to the lateral malleolus of the ankle. Pedal pulses 2+. Cap refill brisk less than 2 seconds. Neurological: Mental Status: She is alert. Assessment and Plan ASSESSMENT/PLAN: 1. Foot injury, left, initial encounter - ICD9: 959.7, ICD10: S99.922A X-rays of the left foot and ankle are negative for fracture. I feel she does have a sprain. Instructed rest, ice, elevation. Postop shoe applied here and given crutches. If not improving over the next week follow-up with PCP. - XR FOOT GENERAL 3V AP/LAT/OBL LEFT - XR ANKLE GENERAL 3V AP/LAT/OBL LEFT Kristie Hernandez PA-C [facility] 10-15-2023 Note HNO ID: [id number] Author: Shelby Phipps RT(R) Service: ? Author Type: Outside Residential Sales Professional Type: Progress Notes Filed: 10/15/2023 4:52 PM Note Text: Radiology Service Progress Note PATIENT NAME: Alma Gutierrez DATE OF SERVICE: October 15, 2023 TIME: 4:52 PM PATIENT IDENTITY VERIFICATION COMPLETED USING TWO (2) IDENTIFIERS: Name and Date of confirmed by patient verbally. FALL SCREENING: Has the patient had 2 falls in the last year or 1 fall with injury or currently using an Ambulatory Assistive Device (Walker, Cane, Wheelchair, Crutches, etc.)? No PATIENT GENDER DATA: Female. status: : No status: NO. PATIENT RELEVANT IMPLANT DATA REVIEWED: Yes RADIOLOGY DEPARTMENT: General X-ray: Exam(s) Completed: Lower Extremity X-Ray(s): Ankle, Left and Foot, Left PERIPHERAL IV DATA: Not applicable SIGNED BY: RT Taiwo(R) October 15, 2023 4:52 PM [facility] 10-15-2023 History of Presen t illness Narrative This note was created using NoteWriter. Subjective Alma Gutierrez is a 33 year old female. HPI Presents with left foot pain since for 4 days. She was helping someone get something off of the top shelf at [employer] when she stepped up on the shelf. When she went to step down she missed the shelf and rolled her foot. She is having pain on the side of her foot and ankle. She has been walking on it but it is painful. Review of Systems Constitutional: Negative. HENT: Negative. Respiratory: Negative. Cardiovascular: Negative. Gastrointestinal: Negative. Musculoskeletal: Left foot and ankle pain All other systems reviewed and are negative. PAST MEDICAL HISTORY Diagnosis Date Asthma Biliary calculus with cholecystitis Depression OD 2016-seeing counseling center Hypercholesterolemia Current Outpatient Medications Medication Sig Dispense Refill albuterol HFA (PROVENTIL HFA, VENTOLIN HFA) 90 mcg/actuation inhaler Inhale 2 Puffs as instructed. EPINEPHrine (EPIPEN) 0.3 mg/0.3 mL auto-injector Inject 0.3 mL intramuscularly as needed. 2 Each 1 Current Facility-Administered Medications Medication Dose Route Frequency Provider Last Rate Last Admin perflutren lipid microspheres 1.3 mL in NaCl (PF) 0.9% 10 mL injection (DEFINITY) INTRAVENOUS DIRECTED PRN Anjel Holley, OFFICE SERVICES ASSOCIATE.BREAD JOCKEY sodium chloride 0.9 % (flush) 10 mL (BD POSIFLUSH) 10 mL INTRAVENOUS DIRECTED PRN Anjel Holley, OFFICE SERVICES ASSOCIATE.BREAD JOCKEY PAST SURGICAL HISTORY Procedure Laterality Date ADENOIDECTOMY PRIMARY <AGE 13 Adenoidectomy CHOLECYSTECTOMY 04/2016 ENDOMETRIAL ABLTJ THERMAL W/O HYSTEROSCOPIC GUID 02/26/16 HYSTERECTOMY HX 03/18/[address] Gonzalez LAPAROSCOPY SURG CHOLECYSTECTOMY 06/16/16 PAST SURGICAL HISTORY OF D&C x3 TONSILLECTOMY PRIMARY/SECONDARY <AGE 13 Tonsillectomy FAMILY HISTORY Problem Relation Age of Onset Diabetes Mother Ovarian cancer Mother Heart disease Mother Diabetes Father Diabetes Maternal Grandfather Social History Tobacco Use Smoking status: Never Smokeless tobacco: Never Vaping Use Vaping Use: Never used Substance Use Topics Alcohol use: No Drug use: No Objective BP 115/76 Pulse 63 Temp 37.2 C (99 F) Resp 18 Wt 107.5 kg (237 lb) SpO2 97% BMI 40.68 kg/m Physical Exam Vitals reviewed. Constitutional: Appearance: Normal appearance. HENT: Head: Normocephalic and atraumatic. Musculoskeletal: Comments: Exam of the foot reveals swelling laterally to the fourth and fifth metatarsal. She is tender on palpation diffusely over the third through fifth metatarsal. Some tenderness to the lateral malleolus of the ankle. Pedal pulses 2+. Cap refill brisk less than 2 seconds. Neurological: Mental Status: She is alert. Assessment and Plan ASSESSMENT/PLAN: 1. Foot injury, left, initial encounter - ICD9: 959.7, ICD10: S99.922A X-rays of the left foot and ankle are negative for fracture. I feel she does have a sprain. Instructed rest, ice, elevation. Postop shoe applied here and given crutches. If not improving over the next week follow-up with PCP. - XR FOOT GENERAL 3V AP/LAT/OBL LEFT - XR ANKLE GENERAL 3V AP/LAT/OBL LEFT Kristie Hernandez PA-C documented in this encounter [facility] 10-15-2023 Instructions Kristie Hernandez PA-C - 10/15/2023 5:20 PM EST Ibuprofen, Rest, ice. Gradual weightbearing as tolerated. If not better in a week follow-up with PCP. documented in this encounter [facility] 05-27-2023 Miscellaneous Notes Benign results. Patient will need to have a yearly thyroid ultrasound. Patient will need to follow-up with her primary care doctor and most likely get started on Levoxyl 50 mcg a day secondary to the diagnosis of chronic lymphocytic thyroiditis For you review. FNA thyroid results Scan on 05/14/2023 2:36 PM by ProviderTab PA-C: Cytology documented in this encounter [facility] 05-18-2023 Miscellaneous Notes Prescription for Zofran upon patient request. Previously tolerated well. Reviewed most recent EKG without Qtc prolongation. documented in this encounter [facility] 05-18-2023 Miscellaneous Notes Patient asking for zofran to be prescribed for nausea. Vandana Yao RN, BSN documented in this encounter [facility] 05-12-2023 Note HNO ID: [id number] Author: Haseeb Porras MD Service: ? Author Type: Physician Type: Progress Notes Filed: 05/14/2023 3:34 PM Note Text: Preoperative diagnosis: Multinodular goiter Postoperative diagnosis: The same Procedure: Ultrasound-guided fine-needle aspiration of dominant left thyroid nodule Surgeon: Bia Procedure: Ultrasound of the left thyroid gland revealed a dominant nodule in question. I prepped the skin with alcohol. I injected 1% lidocaine plain. Under ultrasound guidance I directed local down towards the thyroid nodule. Under ultrasound guidance I took 3 passes with a 22-gauge needle. I plated these on glass slides. Sterile dressings were applied. The patient tolerated the procedure well. [facility] 05-12-2023 Note HNO ID: [id number] Author: Nadja Renee RN Service: ? Author Type: Registered Nurse Type: Progress Notes Filed: 05/14/2023 3:34 PM Note Text: UNIVERSAL PROTOCOL / SAFETY CHECKLIST Procedure to be Performed: Ultrasound Guided Fine Needle Aspiration Thyroid left Sign In: A Moment of CARE was completed. Personnel directly involved with the procedure wore the appropriate PPE (Personal Protective Equipment). No special equipment needed. Patient/Surrogate Stated/Verified: PATIENT VERIFIED(optional for EMERGENT procedures): Patient name, Date of , Relevant allergies, and The intended procedure Time Out Communication: Intended patient and procedure match the source documents. Consent documented and matches the intended procedure. Relevant labs, photos, and/or imaging studies have been reviewed. Correct side/site marked and visible. Medications required for procedure verified. No fire risk assessment and interventions applicable. No implant(s) inserted. Sign Out: SIGN OUT (optional for EMERGENT procedures): All specimen containers correctly labeled. No instruments, equipment or retained foreign bodies applicable. Post-procedure follow-up management communicated and Plan of Care Visit completed when applicable. Nadja Renee RN [facility] 05-12-2023 Instructions Nadja Renee RN - 05/12/2023 3:36 PM EDT The following instructions are important for you related to your office visit today with the [facility] General Surgeons. Instructions After THYROID FINE NEEDLE ASPIRATION Please do not take aspirin or other blood thinners for the next few days. If you have bleeding from the needle site, hold pressure with a clean gauze. If the bleeding continues, contact our office immediately. I recommend what you would normally take for the discomfort. An ice pack may improve your discomfort to the area. Contact our office immediately if you have any questions or concerns @ [phone]. Dr. Porras will call you with the results in 7-10 days. If you do not hear from our office, please call. If you note any additional difficulties, questions, or concerns, you should contact our office immediately @ [phone] and ask to be transferred to the General Surgery department. documented in this encounter [facility] 05-12-2023 History of Presen t illness Narrative Preoperative diagnosis: Multinodular goiter Postoperative diagnosis: The same Procedure: Ultrasound-guided fine-needle aspiration of dominant left thyroid nodule Surgeon: Bia Procedure: Ultrasound of the left thyroid gland revealed a dominant nodule in question. I prepped the skin with alcohol. I injected 1% lidocaine plain. Under ultrasound guidance I directed local down towards the thyroid nodule. Under ultrasound guidance I took 3 passes with a 22-gauge needle. I plated these on glass slides. Sterile dressings were applied. The patient tolerated the procedure well. UNIVERSAL PROTOCOL / SAFETY CHECKLIST Procedure to be Performed: Ultrasound Guided Fine Needle Aspiration Thyroid left Sign In: A Moment of CARE was completed. Personnel directly involved with the procedure wore the appropriate PPE (Personal Protective Equipment). No special equipment needed. Patient/Surrogate Stated/Verified: PATIENT VERIFIED(optional for EMERGENT procedures): Patient name, Date of , Relevant allergies, and The intended procedure Time Out Communication: Intended patient and procedure match the source documents. Consent documented and matches the intended procedure. Relevant labs, photos, and/or imaging studies have been reviewed. Correct side/site marked and visible. Medications required for procedure verified. No fire risk assessment and interventions applicable. No implant(s) inserted. Sign Out: SIGN OUT (optional for EMERGENT procedures): All specimen containers correctly labeled. No instruments, equipment or retained foreign bodies applicable. Post-procedure follow-up management communicated and Plan of Care Visit completed when applicable. Nadja Renee RN documented in this encounter [facility] 05-07-2023 Miscellaneous Notes Spoke with pt and information listed below given. Pt verbalizes understanding. Andreea Damon LPN Left message for patient to return call to office Sneha Delcid Cma Please let patient know her echo is within normal limits documented in this encounter [facility] 05-07-2023 Note HNO ID: [id number] Author: Haseeb Porras MD Service: ? Author Type: Physician Type: Progress Notes Filed: 05/14/2023 3:43 PM Note Text: HISTORY AND PHYSICAL Alma Gutierrez 1990 REFERRING PHYSICIAN: Gustabo Tovar MD CHIEF COMPLAINT: Consult (Thyroid nodule) HPI: The patient is a 33 year old female with a complaint of a bilateral thyroid nodule. This thyroid nodule was found on Ultrasound by [facility]. The patient notes pain, notes difficulty swallowing, deniesrapid enlargement of the neck, notesdysphagia, notes a change in the voice, denies hot or cold intolerence. The patient has not a prior history of neck radiation treatment. The patient has thyroid function testing. T4 - 1.0, T3 - 112, THS - 1.94. The patient is being seen by me today at the request of Dr. Tovar for my opinion and advice regarding Multinodular goiter (primary encounter diagnosis). PAST MEDICAL HISTORY Diagnosis Date Asthma Biliary calculus with cholecystitis Depression OD 2015-[facility] Hypercholesterolemia PAST SURGICAL HISTORY Procedure Laterality Date ADENOIDECTOMY PRIMARY Adenoidectomy CHOLECYSTECTOMY 04/2016 ENDOMETRIAL ABLTJ THERMAL W/O HYSTEROSCOPIC GUID 02/26/16 HYSTERECTOMY HX 03/18/[address] Gonzalez LAPAROSCOPY SURG CHOLECYSTECTOMY 06/16/16 PAST SURGICAL HISTORY OF DANDC x3 TONSILLECTOMY PRIMARY/SECONDARY Tonsillectomy Current Outpatient Medications Medication Sig Dispense Refill keTORolac (TORADOL) 10 mg tablet Take 1 tablet by mouth every 6 hours as needed. 20 tablet 2 EPINEPHrine (EPIPEN) 0.3 mg/0.3 mL auto-injector Inject 0.3 mL intramuscularly as needed. 2 Each 1 albuterol HFA (PROVENTIL HFA, VENTOLIN HFA) 90 mcg/actuation inhaler Inhale 2 Puffs as instructed. Current Facility-Administered Medications Medication Dose Route Frequency Provider Last Rate Last Admin perflutren lipid microspheres 1.3 mL in NaCl (PF) 0.9% 10 mL injection (DEFINITY) INTRAVENOUS DIRECTED PRN Anjel Holley APRN.BREAD JOCKEY sodium chloride 0.9 % (flush) 10 mL (BD POSIFLUSH) 10 mL INTRAVENOUS DIRECTED PRN Anjel Holley APRN.BREAD JOCKEY ALLERGIES: Acetomenaphthone, Asa [Aspirin], Bees, Ibuprofen, Monosodium Glutamate (Msg), Peanuts, Percocet [Oxycodone-Acetaminophen], Strawberries, Tramadol, and Water Asotin PERSONAL HISTORY: Social History Tobacco Use Smoking status: Never Smokeless tobacco: Never Vaping Use Vaping Use: Never used Substance Use Topics Alcohol use: No Drug use: No FAMILY HISTORY: FAMILY HISTORY Problem Relation Age of Onset Diabetes Mother Ovarian cancer Mother Heart disease Mother Diabetes Father Diabetes Maternal Grandfather REVIEW OF SYMPTOMS: The review of systems data was entered by the nurse and reviewed by me Nursing Notes: Zuleima Bergman SEWER SEPARATION DESIGNER 05/07/2023 1:58 PM Signed REVIEW OF SYSTEMS: General: The patient NOTES fatigue, NOTES weight loss, NOTES weight gain, NOTES feeling hot, and denies feelings of cold. Eyes: The patient denies glaucoma, denies eye injury/surgery, does not wear glasses or contacts. Ear/Nose/Throat: The patient denies allergies, denies hayfever, denies ear infections, and denies bloody noses. Cardiovascular: The patient denies chest pain, denies heart disease, denies high blood pressure,denies cardiac stent, denies prior heart attack, denies irregular heart beat, NOTES high cholesterol, denies poor circulation, denies heart failure, other cardiac issues, NOTES claudication, denies cold feet, denies peripheral arterial stent. Respiratory: The patient denies tuberculosis, denies pneumonia, denies frequent cough, denies pulmonary embolism, NOTES shortness of breath, and denies coughing up blood. Gastrointestinal: The patient denies difficulty swallowing, denies acid reflux, denies ulcers, denies vomiting, denies jaundice/hepatitis, denies gallbladder problems, denies black or tarry stools, denies hemorrhoids, denies bleeding from rectum, denies diverticulitis, denies constipation, denies diarrhea, denies loss of stool control, and denies hernias. Kidney/Bladder: The patient denies kidney stones, denies urine infections, and denies bloody urine. Skin: The patient denies a history of skin cancer, denies bleeding/changing moles, and denies a history of skin rash. Neurologic: The patient denies a history of epilepsy/convulsions, NOTES headaches, denies head/spinal injuries, and denies stroke/TIA. Psychiatric: The patient denies psychiatric medications, NOTES depression, and denies voices, denies substance abuse. Endocrine: The patient denies thyroid disorders, denies diabetes, and denies hormonal problems. Hematologic: The patient denies a history of bruising, denies bleeding, and denies anemia, denies blood clots. Infections: The patient denies a history of measles and mumps, denies rheumatic fever, and denies sexually transmitted diseases. Musculoskeletal: The p (more content not included)... [facility] 05-07-2023 History of Presen t illness Narrative HISTORY AND PHYSICAL Alma Gutierrez 1990 REFERRING PHYSICIAN: Gustabo Tovar MD CHIEF COMPLAINT: Consult (Thyroid nodule) HPI: The patient is a 33 year old female with a complaint of a bilateral thyroid nodule. This thyroid nodule was found on Ultrasound by [facility]. The patient notes pain, notes difficulty swallowing, deniesrapid enlargement of the neck, notesdysphagia, notes a change in the voice, denies hot or cold intolerence. The patient has not a prior history of neck radiation treatment. The patient has thyroid function testing. T4 - 1.0, T3 - 112, THS - 1.94. The patient is being seen by me today at the request of Dr. Tovar for my opinion and advice regarding Multinodular goiter (primary encounter diagnosis). PAST MEDICAL HISTORY Diagnosis Date Asthma Biliary calculus with cholecystitis Depression OD 2016-[facility] PAST SURGICAL HISTORY Procedure Laterality Date ADENOIDECTOMY PRIMARY <AGE 13 Adenoidectomy CHOLECYSTECTOMY 04/2016 ENDOMETRIAL ABLTJ THERMAL W/O HYSTEROSCOPIC GUID 02/26/16 HYSTERECTOMY HX 03/18/[address] Gonzalez LAPAROSCOPY SURG CHOLECYSTECTOMY 06/16/16 PAST SURGICAL HISTORY OF D&C x3 TONSILLECTOMY PRIMARY/SECONDARY <AGE 13 Tonsillectomy Current Outpatient Medications Medication Sig Dispense Refill keTORolac (TORADOL) 10 mg tablet Take 1 tablet by mouth every 6 hours as needed. 20 tablet 2 EPINEPHrine (EPIPEN) 0.3 mg/0.3 mL auto-injector Inject 0.3 mL intramuscularly as needed. 2 Each 1 albuterol HFA (PROVENTIL HFA, VENTOLIN HFA) 90 mcg/actuation inhaler Inhale 2 Puffs as instructed. Current Facility-Administered Medications Medication Dose Route Frequency Provider Last Rate Last Admin perflutren lipid microspheres 1.3 mL in NaCl (PF) 0.9% 10 mL injection (DEFINITY) INTRAVENOUS DIRECTED PRN Anjel Holley APRN.KASSANDRA sodium chloride 0.9 % (flush) 10 mL (BD POSIFLUSH) 10 mL INTRAVENOUS DIRECTED PRN Anjel Holley APRN.BREAD JOCKEY ALLERGIES: Acetomenaphthone, Asa [Aspirin], Bees, Ibuprofen, Monosodium Glutamate (Msg), Peanuts, Percocet [Oxycodone-Acetaminophen], Strawberries, Tramadol, and Water Asotin PERSONAL HISTORY: Social History Tobacco Use Smoking status: Never Smokeless tobacco: Never Vaping Use Vaping Use: Never used Substance Use Topics Alcohol use: No Drug use: No FAMILY HISTORY: FAMILY HISTORY Problem Relation Age of Onset Diabetes Mother Ovarian cancer Mother Heart disease Mother Diabetes Father Diabetes Maternal Grandfather REVIEW OF SYMPTOMS: The review of systems data was entered by the nurse and reviewed by me Nursing Notes: Zuleima Bergman LPN 05/07/2023 1:58 PM Signed REVIEW OF SYSTEMS: General: The patient NOTES fatigue, NOTES weight loss, NOTES weight gain, NOTES feeling hot, and denies feelings of cold. Eyes: The patient denies glaucoma, denies eye injury/surgery, does not wear glasses or contacts. Ear/Nose/Throat: The patient denies allergies, denies hayfever, denies ear infections, and denies bloody noses. Cardiovascular: The patient denies chest pain, denies heart disease, denies high blood pressure,denies cardiac stent, denies prior heart attack, denies irregular heart beat, NOTES high cholesterol, denies poor circulation, denies heart failure, other cardiac issues, NOTES claudication, denies cold feet, denies peripheral arterial stent. Respiratory: The patient denies tuberculosis, denies pneumonia, denies frequent cough, denies pulmonary embolism, NOTES shortness of breath, and denies coughing up blood. Gastrointestinal: The patient denies difficulty swallowing, denies acid reflux, denies ulcers, denies vomiting, denies jaundice/hepatitis, denies gallbladder problems, denies black or tarry stools, denies hemorrhoids, denies bleeding from rectum, denies diverticulitis, denies constipation, denies diarrhea, denies loss of stool control, and denies hernias. Kidney/Bladder: The patient denies kidney stones, denies urine infections, and denies bloody urine. Skin: The patient denies a history of skin cancer, denies bleeding/changing moles, and denies a history of skin rash. Neurologic: The patient denies a history of epilepsy/convulsions, NOTES headaches, denies head/spinal injuries, and denies stroke/TIA. Psychiatric: The patient denies psychiatric medications, NOTES depression, and denies voices, denies substance abuse. Endocrine: The patient denies thyroid disorders, denies diabetes, and denies hormonal problems. Hematologic: The patient denies a history of bruising, denies bleeding, and denies anemia, denies blood clots. Infections: The patient denies a history of measles and mumps, denies rheumatic fever, and denies sexually transmitted diseases. Musculoskeletal: The patient denies back pain/injury, NOTES back problems, denies sciatica, denies knee/foot trouble, denies arthritis, or denies gout. When was patient's last Mammogram screening? No prior Last Colonoscopy: no prior Zuleima Bergman LPN PHYSICAL EXAMINATION: General: The patient is 33 year old female, well nourished, well hydrated in no acute distress. The patient is oriented to time, place, and person. VITALS: Blood pressure 122/88, pulse 105, temperature 36.4 C (97.6 F), height 162.6 cm (5' 4 ), weight 103.9 kg (229 lb), SpO2 97 %. Body mass index is 39.31 kg/m . HEENT: Normal cephalic, ataumatic, pupils are equally round, sclera are anicteric, mucous membranes are moist, oropharynx is clear. Neck has no masses, asymmetry or lymphadenopathy. Thyroid exam no hard palpable nodules are identified. Respiratory: Clear to auscultation and percussion. Normal respiratory excursion and pattern. Cardiac: Examination is regular rate and rhythm. Abdominal exam: Soft, nontender, with no palpable masses. No hepatosplenomegaly. No palpable hernias. Rectal exam: exam deferred Extremities: no clubbing, cyanosis or edema. No adenopathy. Other: LABORATORY VALUES: As Noted RADIOLOGIC STUDIES: As Noted Assessment IMPRESSION: NODULE - bilateral THYROID PLAN: I plan to perform an FNAC of the left Thyroid. Diagnoses: (E04.2) Multinodular goiter (primary encounter diagnosis) My findings have been communicated to Dr. Tovar via shared medical record. This note will be forwarded to Dr. Anjel Holley APRN.BREAD JOCKEY. Return to Clinic: The patient is instructed to follow-up with me 1 week post operatively. Haseeb Porras III, MD documented in this encounter [facility] 05-06-2023 Nurse Note REVIEW OF SYSTEMS: General: The patient NOTES fatigue, NOTES weight loss, NOTES weight gain, NOTES feeling hot, and denies feelings of cold. Eyes: The patient denies glaucoma, denies eye injury/surgery, does not wear glasses or contacts. Ear/Nose/Throat: The patient denies allergies, denies hayfever, denies ear infections, and denies bloody noses. Cardiovascular: The patient denies chest pain, denies heart disease, denies high blood pressure,denies cardiac stent, denies prior heart attack, denies irregular heart beat, NOTES high cholesterol, denies poor circulation, denies heart failure, other cardiac issues, NOTES claudication, denies cold feet, denies peripheral arterial stent. Respiratory: The patient denies tuberculosis, denies pneumonia, denies frequent cough, denies pulmonary embolism, NOTES shortness of breath, and denies coughing up blood. Gastrointestinal: The patient denies difficulty swallowing, denies acid reflux, denies ulcers, denies vomiting, denies jaundice/hepatitis, denies gallbladder problems, denies black or tarry stools, denies hemorrhoids, denies bleeding from rectum, denies diverticulitis, denies constipation, denies diarrhea, denies loss of stool control, and denies hernias. Kidney/Bladder: The patient denies kidney stones, denies urine infections, and denies bloody urine. Skin: The patient denies a history of skin cancer, denies bleeding/changing moles, and denies a history of skin rash. Neurologic: The patient denies a history of epilepsy/convulsions, NOTES headaches, denies head/spinal injuries, and denies stroke/TIA. Psychiatric: The patient denies psychiatric medications, NOTES depression, and denies voices, denies substance abuse. Endocrine: The patient denies thyroid disorders, denies diabetes, and denies hormonal problems. Hematologic: The patient denies a history of bruising, denies bleeding, and denies anemia, denies blood clots. Infections: The patient denies a history of measles and mumps, denies rheumatic fever, and denies sexually transmitted diseases. Musculoskeletal: The patient denies back pain/injury, NOTES back problems, denies sciatica, denies knee/foot trouble, denies arthritis, or denies gout. When was patient's last Mammogram screening? No prior Last Colonoscopy: no prior Zuleima Bergman LPN documented in this encounter [facility] 05-04-2023 Miscellaneous Notes Patient notified of results via [employer] message. documented in this encounter [facility] 04-30-2023 Miscellaneous Notes Patient returned call and shared that she has tried Toradol and it has been effective in the past and she is agreeable to this. Patient shard that she uses the [facility] in [place]. Ck updated. Juvenal Cruz RN, BSN Images from the original note were not included. Azucena Ingram PA-C You 13 minutes ago (3:00 PM) CK Has patient established care with the headache clinic? The headache clinic usually is the one that orders these infusions. The only location I know of is [facility]. I would be happy to send in a steroid taper or Toradol in the interim if needed. Patient called at [phone] to be offered update and no answer at number offered. Message left with contact name and phone number with a request for a return call at the patient's earliest convenience. Reference to additionally if calls are difficult to return. Juvenal Cruz RN, BSN documented in this encounter [facility] 04-30-2023 Note HNO ID: [id number] Author: Marie Houser RDMS Service: ? Author Type: Outside Residential Sales Professional Type: Progress Notes Filed: 04/30/2023 9:34 AM Note Text: Radiology Service Progress Note PATIENT NAME: Alma Gutierrez DATE OF SERVICE: April 30, 2023 TIME: 9:33 AM PATIENT IDENTITY VERIFICATION COMPLETED USING TWO (2) IDENTIFIERS: Name and Date of confirmed by patient verbally. FALL SCREENING: Has the patient had 2 falls in the last year or 1 fall with injury or currently using an Ambulatory Assistive Device (Walker, Cane, Wheelchair, Crutches, etc.)? No PATIENT GENDER DATA: Female. status: Unknown status: N/A PATIENT RELEVANT IMPLANT DATA REVIEWED: Not Applicable RADIOLOGY DEPARTMENT: Ultrasound PERIPHERAL IV DATA: Not applicable SIGNED BY: Marie Houser RDMS April 30, 2023 9:33 AM [facility] 04-28-2023 Miscellaneous Notes PA not needed due to caresource has to be ran for specific NDC Spoke to aziza who changed and went through Arlette Prieto Ma Prior Authorization has been completed online at [facility] for epicpen, will await response. [id number] Please keep encounter open until final decision has been received and documented from insurance company. Arlette Prieto MA Pt wrote into office via [employer] stating pharmacy notified her she needs PA for Epi Pen. See message below. I went to [facility] to pickle solution maker my prescription for epi pen, and they said my insurance wont cover it and they need a prior authorization from you. Could you send that over to [facility] please or my insurance. Thanks Clare Brady Ma documented in this encounter [facility] 04-24-2023 Note HNO ID: [id number] Author: Anjel Holley APRN.KASSANDRA Service: ? Author Type: Nurse Practitioner Type: Progress Notes Filed: 04/24/2023 12:58 PM Note Text: Chief Complaint Patient presents with: Establish Care HPI Alma Gutierrez is a 33 year old female who presents here today for Above Complaints.. Patient presents to [facility]. Patient currently follows with neurology. Patient reports she has headaches daily and is why she sees neuro. Patient reports that ever since she had covid in November her symptoms have worsened. Patient reports she has had covid 4 times. Past medical history, appointments, medications, allergies reviewed. Previous Medical History PAST MEDICAL HISTORY Diagnosis Date Asthma Biliary calculus with cholecystitis Depression OD 2016-[facility] Hypercholesterolemia Previous Surgical History PAST SURGICAL HISTORY Procedure Laterality Date ADENOIDECTOMY PRIMARY Adenoidectomy CHOLECYSTECTOMY 04/2016 ENDOMETRIAL ABLTJ THERMAL W/O HYSTEROSCOPIC GUID 02/26/16 HYSTERECTOMY HX 03/18/[address] Gonzalez LAPAROSCOPY SURG CHOLECYSTECTOMY 06/16/16 PAST SURGICAL HISTORY OF DANDC x3 TONSILLECTOMY PRIMARY/SECONDARY Tonsillectomy Family History No family history on file. Patient Allergies ALLERGIES Allergen Reactions Acetomenaphthone Rash, Shortness of Breath Asa [Aspirin] Rash, Shortness of Breath Bees Rash, Shortness of Breath Ibuprofen Hives throat closes Monosodium Glutamat* Hives, Swelling, Shortness of Breath Peanuts Swelling, Shortness of Breath Percocet [Oxycodone* Rash, Shortness of Breath Strawberries Swelling, Shortness of Breath Toradol [Ketorolac] Anaphylaxis Water Asotin Hives, Swelling Current Medications Current Outpatient Medications on File Prior to Visit Medication Sig divalproex ER (DEPAKOTE ER) 250 mg 24 hr tablet Take 2 tablets by mouth once daily for 5 days, THEN 1 tablet once daily for 5 days. meloxicam (MOBIC) 15 mg tablet Take 1 tablet by mouth once daily. With food. albuterol HFA (PROVENTIL HFA, VENTOLIN HFA) 90 mcg/actuation inhaler Inhale 2 Puffs as instructed. EPINEPHRINE (EPIPEN INJECTION) Inject intramuscularly. No current facility-administered medications on file prior to visit. Social History Social History Tobacco Use Smoking status: Never Smokeless tobacco: Never Substance Use Topics Alcohol use: No Drug use: No Review of Symptoms REVIEW OF SYSTEMS GENERAL: No weight loss, malaise or fevers HEENT: Head Positive for headache , Eyes Positive for blurred vision and recent change in vision , Ears Positive for tinnitus NECK: Positive for swelling right side and RESPIRATORY: Shortness of breath CARDIOVASCULAR: Negative for chest pain, leg swelling, hypertension, CHF or palpitations GI: Positive for nausea consistent with headaches : No history of dysuria, frequency or incontinence 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 General Appearance: Well appearing, alert, in no acute distress, well-hydrated, well nourished.. Head: Normocephalic, no masses, lesions, tenderness or abnormalities. Eyes: Anicteric sclera. Pupils are equally round and reactive to light. Extraocular movements are intact. . Ears: External ears normal, canals clear. Neck: Positive findings: thyroid: normal to inspection and palpation, enlarged, and tender. Lungs: Lungs clear to auscultation. No wheezing, rhonchi, rales.. Heart: RRR without murmur, gallop, or rubs. No ectopy. Abdomen: Normal abdominal exam, Abdomen soft, non-tender. Bowel sounds normal. No masses, organomegaly Musculoskeletal: No joint swelling, deformity, or tenderness. Peripheral Pulses: Normal. Neurologic: Gait normal. Reflexes normal and symmetric. Sensation grossly intact.. Health Maintenance List HEPATITIS B(1 of 3 - 3-dose series) Never done HEPATITIS C SCREENING Never done HIV SCREENING Never done DTAP,TDAP,TD(1 - Tdap) Never done PAP TESTING Never done HPV TESTING Never done COVID-19 VACCINE(3 - Booster for Moderna series) due on 04/23/2021 DEPRESSION ASSESSMENT Never done INFLUENZA(Season Ended) due on 07/03/2023 ASSESSMENT/PLAN: 1. Hypothyroidism, unspecified type - ICD9: 244.9, ICD10: E03.9 (primary diagnosis) - check TSH, free T4, and Free T3 today Stable - TSH BLD - T4 FREE/FREE THYROX - US THYROID/PARATHYROID - T3 BLD 2. Screening for diabetes mellitus - ICD9: V77.1, ICD10: Z13.1 - HGB A1C 3. Screening for lipid disorders - ICD9: V77 (more content not included)... [facility] 04-24-2023 Instructions Anjel Holley APRN.CNP - 04/24/2023 12:58 PM EDT Complete labs Schedule echo Schedule thyroid US Schedule with covid recovery documented in this encounter [facility] 04-24-2023 History of Presen t illness Narrative Chief Complaint Patient presents with: [facility] HPI Alma Gutierrez is a 33 year old female who presents here today for Above Complaints.. Patient presents to [facility]. Patient currently follows with neurology. Patient reports she has headaches daily and is why she sees neuro. Patient reports that ever since she had covid in November her symptoms have worsened. Patient reports she has had covid 4 times. Past medical history, appointments, medications, allergies reviewed. Previous Medical History PAST MEDICAL HISTORY Diagnosis Date Asthma Biliary calculus with cholecystitis Depression OD 2016-seeing [facility] Hypercholesterolemia Previous Surgical History PAST SURGICAL HISTORY Procedure Laterality Date ADENOIDECTOMY PRIMARY <AGE 13 Adenoidectomy CHOLECYSTECTOMY 04/2016 ENDOMETRIAL ABLTJ THERMAL W/O HYSTEROSCOPIC GUID 02/26/16 HYSTERECTOMY HX 03/18/[address] Gonzalez LAPAROSCOPY SURG CHOLECYSTECTOMY 06/16/16 PAST SURGICAL HISTORY OF D&C x3 TONSILLECTOMY PRIMARY/SECONDARY <AGE 13 Tonsillectomy Family History No family history on file. Patient Allergies ALLERGIES Allergen Reactions Acetomenaphthone Rash, Shortness of Breath Asa [Aspirin] Rash, Shortness of Breath Bees Rash, Shortness of Breath Ibuprofen Hives throat closes Monosodium Glutamat* Hives, Swelling, Shortness of Breath Peanuts Swelling, Shortness of Breath Percocet [Oxycodone* Rash, Shortness of Breath Strawberries Swelling, Shortness of Breath Toradol [Ketorolac] Anaphylaxis Water Asotin Hives, Swelling Current Medications Current Outpatient Medications on File Prior to Visit Medication Sig divalproex ER (DEPAKOTE ER) 250 mg 24 hr tablet Take 2 tablets by mouth once daily for 5 days, THEN 1 tablet once daily for 5 days. meloxicam (MOBIC) 15 mg tablet Take 1 tablet by mouth once daily. With food. albuterol HFA (PROVENTIL HFA, VENTOLIN HFA) 90 mcg/actuation inhaler Inhale 2 Puffs as instructed. EPINEPHRINE (EPIPEN INJECTION) Inject intramuscularly. No current facility-administered medications on file prior to visit. Social History Social History Tobacco Use Smoking status: Never Smokeless tobacco: Never Substance Use Topics Alcohol use: No Drug use: No Review of Symptoms REVIEW OF SYSTEMS GENERAL: No weight loss, malaise or fevers HEENT: Head Positive for headache , Eyes Positive for blurred vision and recent change in vision , Ears Positive for tinnitus NECK: Positive for swelling right side and RESPIRATORY: Shortness of breath CARDIOVASCULAR: Negative for chest pain, leg swelling, hypertension, CHF or palpitations GI: Positive for nausea consistent with headaches : No history of dysuria, frequency or incontinence 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 Head: Normocephalic, no masses, lesions, tenderness or abnormalities. Eyes: Anicteric sclera. Pupils are equally round and reactive to light. Extraocular movements are intact. . Ears: External ears normal, canals clear. Neck: Positive findings: thyroid: normal to inspection and palpation, enlarged, and tender. Lungs: Lungs clear to auscultation. No wheezing, rhonchi, rales.. Heart: RRR without murmur, gallop, or rubs. No ectopy. Abdomen: Normal abdominal exam, Abdomen soft, non-tender. Bowel sounds normal. No masses, organomegaly Musculoskeletal: No joint swelling, deformity, or tenderness. Peripheral Pulses: Normal. Neurologic: Gait normal. Reflexes normal and symmetric. Sensation grossly intact.. Health Maintenance List HEPATITIS B(1 of 3 - 3-dose series) Never done HEPATITIS C SCREENING Never done HIV SCREENING Never done DTAP,TDAP,TD(1 - Tdap) Never done PAP TESTING Never done HPV TESTING Never done COVID-19 VACCINE(3 - Booster for Moderna series) due on 04/23/2021 DEPRESSION ASSESSMENT Never done INFLUENZA(Season Ended) due on 07/03/2023 ASSESSMENT/PLAN: 1. Hypothyroidism, unspecified type - ICD9: 244.9, ICD10: E03.9 (primary diagnosis) - check TSH, free T4, and Free T3 today Stable - TSH BLD - T4 FREE/FREE THYROX - US THYROID/PARATHYROID - T3 BLD 2. Screening for diabetes mellitus - ICD9: V77.1, ICD10: Z13.1 - HGB A1C 3. Screening for lipid disorders - ICD9: V77.91, ICD10: Z13.220 - LIPID PANEL, NONFASTING 4. Anaphylaxis due to bite or sting - ICD9: 995.0, E905.3, ICD10: T63.91XA - EPINEPHRINE 0.3 MG/0.3 ML INJECTION, AUTO-INJECTOR 5. Fatigue, unspecified type - ICD9: 780.79, ICD10: R53.83 - CONSULT TO COVID RECOVER CLINIC - ECHO - PERFLUTREN LIPID MICROSPHERES 1.1 MG/ML INJECTION IN NS 10 ML - SODIUM CHLORIDE 0.9 % (FLUSH) INJECTION SYRINGE 6. SOB (shortness of breath) - ICD9: 786.05, ICD10: R06.02 - ECHO - PERFLUTREN LIPID MICROSPHERES 1.1 MG/ML INJECTION IN NS 10 ML - SODIUM CHLORIDE 0.9 % (FLUSH) INJECTION SYRINGE Anjel Holley APRN.BREAD JOCKEY documented in this encounter [facility] 03-26-2023 Note HNO ID: [id number] Author: RT Osmin(R) Service: ? Author Type: Technologist Type: Progress Notes Filed: 03/26/2023 10:58 AM Note Text: Radiology Service Progress Note DATE OF SERVICE: March 26, 2023 TIME: 10:58 AM PATIENT IDENTITY VERIFICATION COMPLETED USING TWO (2) STANDARD IDENTIFIERS: Name and Date of confirmed by patient verbally. FALL SCREENING: Has the patient had 2 falls in the last year or 1 fall with injury or currently using an Ambulatory Assistive Device (Walker, Cane, Wheelchair, Crutches, etc.)? No PATIENT GENDER DATA: Female. status: : No status: NO. PATIENT RELEVANT IMPLANT DATA REVIEWED: Yes ALLERGIES: Reviewed and unchanged CONTRAST ALLERGY: NO. EXAM: MRI - CONTRAST TYPE: GROUP II PERIPHERAL IV DATA: Ambulatory: A peripheral IV was started in the Right antecubital site with a Angio cath: 22 gauge. RADIOLOGY DEPARTMENT: MR; Exam(s) Completed: Head: Routine Brain Sagittal Sinus MRV SIGNATURE: RT Osmin(R) PATIENT NAME: Alma Gutierrez DATE: March 26, 2023 TIME: 10:58 AM [facility] 03-26-2023 History of Presen t illness Narrative Radiology Service Progress Note DATE OF SERVICE: March 26, 2023 TIME: 10:58 AM PATIENT IDENTITY VERIFICATION COMPLETED USING TWO (2) STANDARD IDENTIFIERS: Name and Date of confirmed by patient verbally. FALL SCREENING: Has the patient had 2 falls in the last year or 1 fall with injury or currently using an Ambulatory Assistive Device (Walker, Cane, Wheelchair, Crutches, etc.)? No PATIENT GENDER DATA: Female. status: : No status: NO. PATIENT RELEVANT IMPLANT DATA REVIEWED: Yes ALLERGIES: Reviewed and unchanged CONTRAST ALLERGY: NO. EXAM: MRI - CONTRAST TYPE: GROUP II PERIPHERAL IV DATA: Ambulatory: A peripheral IV was started in the Right antecubital site with a Angio cath: 22 gauge. RADIOLOGY DEPARTMENT: MR; Exam(s) Completed: Head: Routine Brain Sagittal Sinus MRV SIGNATURE: RT Osmin(Kiara) PATIENT NAME: Alma Gutierrez DATE: March 26, 2023 TIME: 10:58 AM documented in this encounter [facility] 03-18-2023 Note HNO ID: [id number] Author: Kristie Hernandez PA-C Service: ? Author Type: Physician Appeals Analyst Type: Progress Notes Filed: 03/18/2023 9:24 AM Note Text: This note was created using NoteWriter. Subjective Alma Gutierrez is a 32 year old female. HPI Patient presents with a chief complaint of black stringy discharge from her nose the past day. She has had some increased headaches the past few days as well. Some congestion. Denies vomiting or diarrhea. She has had increased fatigue. She has felt feverish off and on. Denies cough. No sore throat. No ear pain. Patient also complaining of a rash under her abdomen and groin area for the past several months. She had this rash in 2021 and was treated with Diflucan. It did get better after a few months but then seem to return. She does follow with neurology for chronic migraines. Is not currently established with PCP. Review of Systems Constitutional: Positive for fatigue and fever. HENT: Positive for congestion. Cardiovascular: Negative. Gastrointestinal: Negative. Musculoskeletal: Negative. Skin: Positive for rash. All other systems reviewed and are negative. PAST MEDICAL HISTORY Diagnosis Date Asthma Biliary calculus with cholecystitis Depression OD [facility] Hypercholesterolemia Current Outpatient Medications Medication Sig Dispense Refill divalproex ER (DEPAKOTE ER) 250 mg 24 hr tablet Take 2 tablets by mouth once daily for 5 days, THEN 1 tablet once daily for 5 days. 15 tablet 0 meloxicam (MOBIC) 15 mg tablet Take 1 tablet by mouth once daily. With food. 30 tablet 0 albuterol HFA (PROVENTIL HFA, VENTOLIN HFA) 90 mcg/actuation inhaler Inhale 2 Puffs as instructed. EPINEPHRINE (EPIPEN INJECTION) Inject intramuscularly. doxycycline (VIBRA-TABS) 100 mg tablet Take 1 tablet by mouth twice daily for 7 days. 14 tablet 0 fluconazole (DIFLUCAN) 150 mg tablet Take 1 tablet by mouth once daily for 1 day. 1 tablet 0 clotrimazole (LOTRIMIN) 1 % cream Apply to affected area twice daily for 7 days. 28 g 0 No current facility-administered medications for this visit. PAST SURGICAL HISTORY Procedure Laterality Date ADENOIDECTOMY PRIMARY Adenoidectomy CHOLECYSTECTOMY 04/2016 ENDOMETRIAL ABLTJ THERMAL W/O HYSTEROSCOPIC GUID 02/26/16 HYSTERECTOMY HX 03/18/[address] Gonzalez LAPAROSCOPY SURG CHOLECYSTECTOMY 06/16/16 PAST SURGICAL HISTORY OF DANOR x3 TONSILLECTOMY PRIMARY/SECONDARY Tonsillectomy No family history on file. Social History Tobacco Use Smoking status: Never Smokeless tobacco: Never Substance Use Topics Alcohol use: No Drug use: No Objective BP 102/64 Pulse 90 Temp 36.8 ?C (98.2 ?F) Resp 16 Wt 104.3 kg (230 lb) SpO2 97% BMI 39.48 kg/m? Physical Exam Vitals reviewed. Constitutional: Appearance: Normal appearance. HENT: Head: Normocephalic and atraumatic. Right Ear: Tympanic membrane, ear canal and external ear normal. Left Ear: Tympanic membrane, ear canal and external ear normal. Nose: Mucosal edema, congestion and rhinorrhea present. Mouth/Throat: Mouth: Mucous membranes are moist. Pharynx: Oropharynx is clear. Cardiovascular: Rate and Rhythm: Normal rate and regular rhythm. Heart sounds: Normal heart sounds. Pulmonary: Effort: Pulmonary effort is normal. Breath sounds: Normal breath sounds. Abdominal: Comments: Cleaning Specialist present Clarisa. Patient has pink to erythematous rash under the pannus and in the groin bilaterally. Consistent with intertrigo. Musculoskeletal: Cervical back: Neck supple. Lymphadenopathy: Cervical: No cervical adenopathy. Skin: General: Skin is warm and dry. Neurological: General: No focal deficit present. Mental Status: She is alert and oriented to person, place, and time. Assessment and Plan ASSESSMENT/PLAN: 1. Fatigue, unspecified type - ICD9: 780.79, ICD10: R53.83 (primary diagnosis) We will check basic labs and TSH. Patient had been told at 1 time she had a thyroid nodule and she would like to follow-up with PCP regarding this as well. - CBC + DIFF - COMP METABOLIC PANEL - TSH BLD 2. Intertrigo - ICD9: 695.89, ICD10: L30.4 Discussed trying to keep a barrier between the skin with powder or lotion. Given fluconazole and clotrimazole cream. Follow-up with PCP. 3. Bacterial sinusitis - ICD9: 473.9, 041.9, ICD10: J32.9, B96.89 - Will begin treatment with Doxycycline - Follow up in 3-5 days if symptoms persist or worsen. - CONSULT TO ENT if black discharge isn't improving. Kristie Hernandez PA-C [facility] 02-24-2023 Note HNO ID: [id number] Author: Azucena Ingram PA-C Service: ? Author Type: Physician Appeals Analyst Type: Progress Notes Filed: 02/25/2023 9:02 AM Note Text: [facility] Name: Alma Gutierrez Age: [age] year old Gender: female Primary Care Provider: No primary care provider on file. Consult requested for headache by Chantal Patel. Recommendations will be communicated via shared medical record or US mail. Chief Complaint:No chief complaint on file. Assessment/Plan: The encounter diagnosis was Intractable migraine without aura and with status migrainosus. This is a pleasant 32-year-old female here for evaluation of increasing frequency and severity of intractable headache occurring daily over the past 6 months. Red flag symptoms include pulsatile tinnitus which is almost constant, blurred vision, daily headaches, and that headaches have not responded to any pharmaceutical treatment at this time. 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 Given the symptoms, will obtain MRI of the brain with and without contrast and MRV with and without contrast. Funduscopic exam was suboptimal today due to patient's severe photophobia, but no obvious optic disc blurring. Will refer to neuro-ophthalmology for formal funduscopic exam as well as transient vision loss, formal visual field testing, and evaluation of her eye symptoms. As far as treatment options, patient has tried and failed multiple medications and is apprehensive about Botox. We will try patient on duloxetine 30 mg once the labs have returned for preventative treatment. Discussed possible side effects including GI side effects and increased blood pressure. However, did discuss risks and benefits of Botox and that this would be very beneficial given daily headaches. Will refer to headache subspecialist as his headaches have been relatively refractory to treatment. Additionally, she has responded to IV infusions in the ER in the past which the headache clinic has access to. For acute treatment, after labs completed, can try Depakote bridge. She is already tried and failed sumatriptan, muscle relaxers, prednisone, and NSAIDs. Discussed possible side effects of Depakote including fatigue and increased liver enzymes. Plan: Headache 1) MRI of the brain with and without contrast and the MRV 2) Ophthalmology at [place] or Neuro-[facility] Dr. Kelechi Sawant (referral has been placed) 3) Send you to the a headache subspecialist 4) Labs 5) After you get the labs, I will send in for the Depakote acute treatment 6) Consider Cymbalta for preventative after labs No orders of the defined types were placed in this encounter. No follow-ups on file. Chart, labs,and relevant images reviewed. HPI: This is a very pleasant 32-year-old female presenting for increasing frequency and severity of headaches. Headache started 4 to 6 years ago but have been increasing in frequency and severity over the past 6 months. They are occurring daily and have been intractable for the 6 months. Headaches are associated with photophobia, phonophobia, some nausea dizziness, confusion, and word finding difficulty. She does endorse pulsatile tinnitus which is constant and daily. She does rarely have emesis. She does have a known history of TMJ with a popping sensation when she opens her mouth, but this does not correlate with the pulsatile tinnitus. Describes headaches as being variable in where it affects. Sometimes it is a whole head, sometimes it is 1 side. She feels mostly left-sided pressure. She has pain throughout her entire body and neck. Most recent imaging was an MRI of the brain done in [place] in August or September 2022 where they found a calcification in the superior sagittal sinus. Unfortunately I am unable to view these images directly. Prior to this, she was following with a neurologist in [facility] that she cannot recall the name of. Patient also describes twitching of her eyelids. She reports blurred vision with her headaches worse in the left eye than the right. She has not been to ophthalmology. When she looks at things it looks like he is coming off of a car. She has had complete vision loss lasting for seconds to minutes mostly occurring in the left eye. When this happens she gets very dizzy. She also has eye pain when looking up. Patient believes headaches may be brought on by coughing, sneezing, or bearing down, but difficult to determine as she has a constant headache. She feels headaches are worse when standing up although there is not resolution when she lies down. Resting use to help her headaches but no longer does. Bending over is when the pain is at its worst. She gets really lightheaded and dizzy when she does this. Patient has tried and failed multiple m (more content not included)... [facility] 02-24-2023 Instructions Azucena Ingram PA-C - 02/24/2023 4:34 PM EDT Headache 1) MRI of the brain with and without contrast and the MRV 2) Ophthalmology at [place] or [facility] Dr. Kelechi Sawant (referral has been placed) 3) Send you to the a headache subspecialist 4) Labs 5) After you get the labs, I will send in for the Depakote acute treatment 6) Consider Cymbalta for preventative documented in this encounter [facility] 02-24-2023 History of Presen t illness Narrative Images from the original note were not included. [facility] Name: Alma Gutierrez Age: [age] year old Gender: female Primary Care Provider: No primary care provider on file. Consult requested for headache by Chantal Patel. Recommendations will be communicated via shared medical record or US mail. Chief Complaint:No chief complaint on file. Assessment/Plan: The encounter diagnosis was Intractable migraine without aura and with status migrainosus. This is a pleasant 32-year-old female here for evaluation of increasing frequency and severity of intractable headache occurring daily over the past 6 months. Red flag symptoms include pulsatile tinnitus which is almost constant, blurred vision, daily headaches, and that headaches have not responded to any pharmaceutical treatment at this time. 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 Given the symptoms, will obtain MRI of the brain with and without contrast and MRV with and without contrast. Funduscopic exam was suboptimal today due to patient's severe photophobia, but no obvious optic disc blurring. Will refer to neuro-ophthalmology for formal funduscopic exam as well as transient vision loss, formal visual field testing, and evaluation of her eye symptoms. As far as treatment options, patient has tried and failed multiple medications and is apprehensive about Botox. We will try patient on duloxetine 30 mg once the labs have returned for preventative treatment. Discussed possible side effects including GI side effects and increased blood pressure. However, did discuss risks and benefits of Botox and that this would be very beneficial given daily headaches. Will refer to headache subspecialist as his headaches have been relatively refractory to treatment. Additionally, she has responded to IV infusions in the ER in the past which the headache clinic has access to. For acute treatment, after labs completed, can try Depakote bridge. She is already tried and failed sumatriptan, muscle relaxers, prednisone, and NSAIDs. Discussed possible side effects of Depakote including fatigue and increased liver enzymes. Plan: Headache 1) MRI of the brain with and without contrast and the MRV 2) Ophthalmology at [place] or [facility] Dr. Kelechi Sawant (referral has been placed) 3) Send you to the a headache subspecialist 4) Labs 5) After you get the labs, I will send in for the Depakote acute treatment 6) Consider Cymbalta for preventative after labs No orders of the defined types were placed in this encounter. No follow-ups on file. Chart, labs,and relevant images reviewed. HPI: This is a very pleasant 32-year-old female presenting for increasing frequency and severity of headaches. Headache started 4 to 6 years ago but have been increasing in frequency and severity over the past 6 months. They are occurring daily and have been intractable for the 6 months. Headaches are associated with photophobia, phonophobia, some nausea dizziness, confusion, and word finding difficulty. She does endorse pulsatile tinnitus which is constant and daily. She does rarely have emesis. She does have a known history of TMJ with a popping sensation when she opens her mouth, but this does not correlate with the pulsatile tinnitus. Describes headaches as being variable in where it affects. Sometimes it is a whole head, sometimes it is 1 side. She feels mostly left-sided pressure. She has pain throughout her entire body and neck. Most recent imaging was an MRI of the brain done in [place] in August or September 2022 where they found a calcification in the superior sagittal sinus. Unfortunately I am unable to view these images directly. Prior to this, she was following with a neurologist in [facility] that she cannot recall the name of. Patient also describes twitching of her eyelids. She reports blurred vision with her headaches worse in the left eye than the right. She has not been to ophthalmology. When she looks at things it looks like he is coming off of a car. She has had complete vision loss lasting for seconds to minutes mostly occurring in the left eye. When this happens she gets very dizzy. She also has eye pain when looking up. Patient believes headaches may be brought on by coughing, sneezing, or bearing down, but difficult to determine as she has a constant headache. She feels headaches are worse when standing up although there is not resolution when she lies down. Resting use to help her headaches but no longer does. Bending over is when the pain is at its worst. She gets really lightheaded and dizzy when she does this. Patient has tried and failed multiple medications listed below. The only thing that has been helpful from a pharmaceutical perspective have been IV infusions in the ER. Medications tried and failed: Sumatriptan, Propranolol 40 mg, Flexeril Topamax (not helpful. Made sick) - between 2016 and 2020 was on both of these medications Nortriptyline and amitriptyline (worsened headaches) - between 2016 and 2020 was on both of these medications Steriods actually make headaches worse. Epifanio Joseph MD - 08/15/2022 12:12 PM CDT 32 Y/O FEMALE PSHx T&A, CHOLECYSTECTOMY PRESENTS TO THE ED C/O SEVERE HEADACHES x 1.5 WEEKS. PT HAS SEEN A NEUROLOGIST IN [place] AND HAD BRAIN IMAGING 4+ YEARS AGO. SHE REPORTS SHE HAD A CYST IN A GLAND OF HER BRAIN BUT DOES NOT REMEMBER WHAT GLAND. PT REPORTS SHE HAS A Hx OF MIGRAINES BUT HASN'T HAD ONE IN 4 YEARS. SHE STATES THESE HEADACHES DO NOT FEEL SIMILAR TO HER PREVIOUS MIGRAINES. PT DESCRIBES HER HEADACHE BEING LOCATED IN THE FRONTAL AREA OF HER HEAD. OVER THE PAST 1.5 WEEKS, PT NOTICED SHE WAS HAVING ISSUES GRASPING THINGS WITH HER RT HAND. YESTERDAY, SHE NOTICED TWO SOFT AREAS TOWARDS THE FRONT OF HER HEAD THAT HAVE ASSOCIATED SHARP PAIN WHEN PALPATED. SHE HAS ALSO BEEN EXPERIENCING NAUSEA, DIZZINESS, BLURRY VISION, EAR RINGING IN RT EAR, AND PHOTOPHOBIA. PT HAS NOT HAD THESE Sx PREVIOUSLY. SHE HAS BEEN TAKING ALEVE FOR HER Sx W/O RELIEF. DENIES ANY RECENT FALLS OR HEAD TRAUMA. DENIES VOMITING, FEVERS, DIARRHEA, DYSURIA, HEMATURIA, BLOOD IN STOOL, ABD PAIN, OR ANY OTHER ACUTE Sx AT THIS TIME. PT'S LAST MENSTRUAL CYCLE WAS 07/26/22 AND SHE HAS REGULAR CYCLES. DENIES ETOH USE, SMOKING, OR RECREATIONAL DRUG USE. CT HEAD WO CONTRAST Radiologist Impression IMPRESSION: * No acute intracranial hemorrhage, edema, or mass effect. * Focal dense, curvilinear calcification at the right side of the superior sagittal sinus overlying the right parietal lobe. This causes no mass effect. Further evaluation by contrast-enhanced MRI is recommended. ACTIVE PROBLEM LIST Obesity, Class Iii, Bmi 40-49.9 (Morbid Obesity) (Hcc) PAST MEDICAL HISTORY Diagnosis Date Asthma Biliary calculus with cholecystitis Depression OD 2016-[facility] Hypercholesterolemia Medications: Reviewed Current Outpatient Medications on File Prior to Visit Medication Sig meloxicam (MOBIC) 15 mg tablet Take 1 tablet by mouth once daily. With food. albuterol HFA (PROVENTIL HFA, VENTOLIN HFA) 90 mcg/actuation inhaler Inhale 2 Puffs as instructed. EPINEPHRINE (EPIPEN INJECTION) Inject intramuscularly. No current facility-administered medications on file prior to visit. ALLERGIES Allergen Reactions Acetomenaphthone Rash, Shortness of Breath Asa [Aspirin] Rash, Shortness of Breath Bees Rash, Shortness of Breath Ibuprofen Hives throat closes Monosodium Glutamat* Hives, Swelling, Shortness of Breath Peanuts Swelling, Shortness of Breath Percocet [Oxycodone* Rash, Shortness of Breath Strawberries Swelling, Shortness of Breath Water Asotin Hives, Swelling No family history on file. PAST SURGICAL HISTORY Procedure Laterality Date ADENOIDECTOMY PRIMARY <AGE 13 Adenoidectomy CHOLECYSTECTOMY 04/2016 ENDOMETRIAL ABLTJ THERMAL W/O HYSTEROSCOPIC GUID 02/26/16 HYSTERECTOMY HX 03/18/[address] Gonzalez LAPAROSCOPY SURG CHOLECYSTECTOMY 06/16/16 PAST SURGICAL HISTORY OF D&C x3 TONSILLECTOMY PRIMARY/SECONDARY <AGE 13 Tonsillectomy SOCIAL HISTORY No social history on file. Tobacco Use: Low Risk Smoking Tobacco Use: Never Smokeless Tobacco Use: Never Passive Exposure: Not on file PHYSICAL EXAM There were no vitals filed for this visit. Neurologic Exam Cognitive and Language: Alert and answered questions appropriately. Language was fluent. Followed simple and complex commands. Cranial Nerves: Visual zavala were full tested binocularly to finger counting in all 4 quadrants with no visual extinction. Pupils were equal and both reactive to light. Extraocular movements were full with no diplopia or nystagmus. Facial sensation was normal to light touch in V1 to V3. Facial strength was symmetric. Normal hearing grossly bilaterally. Palatal raise was symmetric. Shoulder shrug was symmetric. Tongue protrusion was symmetric with no fasciculations. Funduscopic exam suboptimal due to patient's severe photophobia Right Left Shoulder Abduction: 5 5 Elbow Extension 5 5 Elbow Flexion 5 5 Wrist Extension 5 5 Finger Extension 5 5 Finger Abduction 5 5 Right Left Hip Flexion 5 5 Knee Extension 5 5 Knee Flexion 5 5 Dorsiflexion 5 5 Plantar Flexion 5 5 Rest tremor: absent Tone: Normal in all four limbs Reflexes: Right Left Brachioradialis 2 2 Biceps 2 2 Triceps 2 2 Patella 2 2 Ankle 2 2 Sensory: normal to light touch x 4 limbs. Coordination: Normal finger to nose and heel to judge testing bilaterally. Negative romberg. Normal gait. Unable to tandem walk due to imbalance Pain on palpation of occipital region, temporalis, cervical paraspinals, or temporalis bilaterally. Crepitus with jaw opening. Labs: Lab Results Component Value Date WBC 7.00 09/25/2017 HCT 44.2 09/25/2017 MCV 92.3 09/25/2017 PLT 344 09/25/2017 No results found for: HBA1C Cholesterol, Total Date Value Ref Range Status 09/25/2017 206 (H) 100 - 199 mg/dL Final HDL Cholesterol Date Value Ref Range Status 09/25/2017 54 (L) >55 mg/dL Final LDL Cholesterol Date Value Ref Range Status 09/25/2017 128 60 - 129 mg/dL Final Triglyceride Date Value Ref Range Status 09/25/2017 120 30 - 149 mg/dL Final Radiology: MRI Head/Brain - Last 2 Impressions No resulted procedures found. This note was dictated using [employer] speech recognition software and may contain some errors that were a result of the program not accurately transcribing what was dictated, despite efforts to make corrections. Note that unless urgent, test and MRI results will be discussed at next follow-up visit. PROMIS (Patient-Reported Outcomes Measurement Information System) is a set of person-centered measures that evaluates and monitors physical, social, and emotional health. It can be used with the general population and with individuals living with chronic conditions. PROMIS 10: PHYSICAL AND MENTAL HEALTH: PHQ-9 01/12/2023 01/12/2023 01/12/2023 Score 22 22 22 Time spent included 57 min on the day of service, which included preparing to see the patient, [id number] patient care, completing clinical documentation, obtaining and/or reviewing separately obtained history, performing a medically appropriate examination, counseling and educating the patient/family/caregiver and ordering medications, tests, or procedures. documented in this encounter [facility] 01-21-2023 Note HNO ID: [id number] Author: Chantal Patel APRN.CNP Service: ? Author Type: Nurse Practitioner Type: Progress Notes Filed: 01/23/2023 8:59 AM Note Text: CC: Patient presents with: Follow Up: C/o back pain from a fall - seen in [facility] Had MRI done in October in [place] and was told she has calcium deposits on brain. MELY Gutierrez is a 32 year old female who presents today for ER and urgent care follow-up. Patient has a history of headaches for the past 5-6 years. States she had MRI at one point prior to the ER visit in September that showed cyst on hilar gland. Patient does not have a copy of this report. She was seeing a neurologist in [place] for these headaches. States she was never actually diagnosed with migraines that she is aware of. Headache treatment included preventative meds that were ineffective. Imitrex was also ineffective. Last neurology office visit was a few years ago. Patient went to an ER in [place]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 [facility] for referral (narrative)* Diagnostic Procedure Only (Urgent) - Closed Specialty Diagnoses / Procedures Referred By Contac t Referred To Contact XR IMAGING Diagnoses Foot injury, left, initial encounter Procedures XR ANKLE GENERAL 3V AP/LAT/OBL LEFT RADEX ANKLE COMPLETE MINIMUM 3 VIEWS Kristie Hernandez, PAMillyC [address] [place] [address] [place] [address] Referral ID Status Reason Start Date Expiration Date V isits Requested Visits Authorized [id number] Closed Auto-Generate d Referral 10/15/2023 11/13/2024 1 1 * Diagnostic Procedure Only (Urgent) - Closed Specialty Diagnoses / Procedures Referred By Sandy t Referred To Contact XR IMAGING Diagnoses Foot injury, left, initial encounter Procedures XR FOOT GENERAL 3V AP/LAT/OBL LEFT RADEX FOOT COMPLETE MINIMUM 3 VIEWS Kristie Hernandez PA-C [address] [place] [address] [place] [address] Referral ID Status Reason Start Date Expiration Date V isits Requested Visits Authorized [id number] Closed Auto-Generate d Referral 10/15/2023 11/13/2024 1 1 [facility] Summary Purpose Family History No Family History Records Found Relationship Condition Age at Onset Recorded Date/T oliver Not Specified Diabetes mellitus Unknown Cardiac disease Unknown Hypertension Unknown Relationship Condition Age at Onset Recorded Date/T oliver Parent Diabetes mellitus Unknown Cardiac disease Unknown Hypertension Unknown Advance Directives No Advanced Directives Records Found Advance Directive Response Recorded Date/ Time Living Will No March 16, 2020 2 :25am Does Patient Have Advance Directives? No October 26, 2020 11:15am Healthcare POA? No March 16, 2020 2 :25am Code Status Full Code October 26 11:15am advanced care plan No January 12 12:33pm Advance Directive Response Recorded Date/ Time Living Will No March 16, 2020 2 :25am Does Patient Have Advance Directives? No October 26, 2020 12:15pm Healthcare POA? No March 16, 2020 2 :25am Code Status Full Code October 26 020 12:15pm advanced care plan No January 12 020 12:33pm Chief Complaint and Reason for Visit Chief Complaint ESTABLISH/ANNUAL EXA M R10.2 RIGHT LOWER QUAD PAIN FOLLOW UP TO ER VISIT N60.09 N63.0 N64.59, LAB WORK LOWER RIGHT ABDOMINAL PAIN Chief Complaint diarrhea/abd discomf ort BLOODWORK Chief Complaint diarrhea/abd discomf ort BLOODWORK FOLLOW UP APPT Chief Complaint COVID COMPLICATIONS Initial/Info Chief Complaint COVID COMPLICATIONS Initial/Info walk in REF; CARDIAC CLEARANCE Chief Complaint COVID COMPLICATIONS Chief Complaint Initial/Info walk in REF; CARDIAC CLEARANCE INITIAL Chief Complaint walk in REF; CARDIAC CLEARANCE INITIAL #2 Chief Complaint walk in REF; CARDIAC CLEARANCE INITIAL #2 NAUSEA,HEADACHE Chief Complaint REF; CARDIAC CLEARAN CE INITIAL #2 NAUSEA,HEADACHE #3 Assessments No Assessments Information AvailableNo Assessments Information AvailableNo Assessments Information AvailableNo Assessments Information AvailableNo Assessments Information AvailableNo Assessments Information AvailableNo Assessments Information AvailableNo Assessments Information Available Discharge Instructions Additional Instructions Rest. Drink lots of fluids. Use saline spray as needed for nasal congestion Mist vaporizer while sleeping. 1. Stay home from work, school, and away from other public places. If you must go out, avoid using any kind of public transportation, ridesharing, or taxis. 2. Monitor your symptoms carefully. If your symptoms get worse, call your healthcare provider immediately. 3. Get rest and stay hydrated. 4. If you have a medical appointment, call the healthcare provider ahead of time and tell them that you have COVID-19. 5. For medical emergencies, call 911 and notify the dispatch personnel that you have COVID-19. 6. Cover your cough and sneezes. 7. Wash your hands often with soap and water for at least 20 seconds or clean your hands with an alcohol-based hand admissions supervisor that contains at least 60% alcohol. 8. As much as possible, stay in a specific room and away from other people in your home. Also, you should use a separate bathroom, if available. If you need to be around other people in or outside of the home, wear a facemask. 9. Avoid sharing personal items with other people in your household, like dishes, towels, and bedding 10. Clean all surfaces that are touched often, like counters, tabletops, and doorknobs. Use household cleaning sprays or wipes according to the label instructions. For any additional questions about your care, contact your healthcare provider or state or local health department. If you develop emergency warning signs for COVID-19 get medical attention immediately. Emergency warning signs include*: Trouble breathing Persistent pain or pressure in the chest New confusion or inability to arouse Bluish lips or face *This list is not all inclusive. Please consult your medical provider for any other symptoms that are severe or concerning. Reason for Referral Specialty Diagnoses / Procedures Referred By Sandy mantilla Referred To Contact [facility] Diagnoses Acute right-sided low back pain, unspecified whether sciatica present Coccydynia Procedures CONSULT TO PHYSICAL THERAPY PHYSICAL THERAPY EVALUATION HIGH COMPLEX 45 MINS Older, JORGE Cornejo.BREAD JOCKEY [address] [place] [address] [facility] [place] [address] [place] [address] Referral ID Status Reason Start Date Expiration Date Visits Requested Visits Authorized [id number] Authorized Auto-Generat ed Referral 11/02/2022 11/01/2023 1 1 Specialty Diagnoses / Procedures Referred By Contac t Referred To Contact Diagnoses Chronic nonintractable headache, unspecified headache type Procedures CONSULT TO HEADACHE CLINIC OFFICE/OUTPATIENT [facility] 60-74 MINUTES Jorge, JORGE Cornejo.BREAD JOCKEY [address] [place] [address] Referral ID Status Reason Start Date Expiration Date Visits Requested Visits Authorized [id number] Pending Review PCP Requested Referral 01/21/2023 01/21/2024 1 1 Specialty Diagnoses / Procedures Referred By Contac t Referred To Contact Neurology Diagnoses Intractable migraine without aura and with status migrainosus Procedures CONSULT TO NEUROLOGY OFFICE/OUTPATIENT [facility] 60-74 MINUTES Azucena Ingram PA-C [address] [id number] Referral ID Status Reason Start Date Expiration Date Visits Requested Visits Authorized [id number] Pending Review PCP Requested Referral 02/24/2023 02/24/2024 1 1 Specialty Diagnoses / Procedures Referred By Contac t Referred To Contact Ophthalmology Diagnoses Intractable migraine without aura and with status migrainosus Procedures CONSULT TO OPHTHALMOLOGY OFFICE/OUTPATIENT [facility] 60-74 MINUTES Azucena Ingram PA-C [address] [place] [address] Kelechi Sawant MD [address] [place] [address] Referral ID Status Reason Start Date Expiration Date Visits Requested Visits Authorized [id number] Pending Review PCP Requested Referral 02/24/2023 02/24/2024 1 1 Specialty Diagnoses / Procedures Referred By Contac t Referred To Contact MR IMAGING Diagnoses Intractable migraine without aura and with status migrainosus Procedures MRV BRAIN WO/W IVCON MRA; HEAD W & WO CONTRAST Azucena Ingram PA-C [address] [place], [place] [address] Mr Imaging Referral ID Status Reason Start Date Expiration Date Visits Requested Visits Authorized [id number] Pending Review Auto-Generat ed Referral 02/24/2023 03/25/2024 1 1 Specialty Diagnoses / Procedures Referred By Contac t Referred To Contact MR IMAGING Diagnoses Intractable migraine without aura and with status migrainosus Procedures MRI BRAIN WO/W IVCON MRI BRAIN BRAIN STEM W/O W/CONTRAST MATERIAL Azucena Ingram PA-C [address] [place], [place] [address] Mr Imaging Referral ID Status Reason Start Date Expiration Date Visits Requested Visits Authorized [id number] Pending Review Auto-Generat ed Referral 02/24/2023 03/25/2024 1 1 Specialty Diagnoses / Procedures Referred By Contac t Referred To Contact MR IMAGING Diagnoses Intractable migraine without aura and with status migrainosus Procedures MRV BRAIN WO/W IVCON MRA; HEAD W & WO CONTRAST Azucena Ingram PA-C [address] [place], [place] [address] [facility] [place] [address] Referral ID Status Reason Start Date Expiration Date V isits Requested Visits Authorized [id number] Closed Auto-Generate d Referral 03/08/2023 05/07/2023 1 1 Specialty Diagnoses / Procedures Referred By Contac t Referred To Contact MR IMAGING Diagnoses Intractable migraine without aura and with status migrainosus Procedures MRI BRAIN WO/W IVCON MRI BRAIN BRAIN STEM W/O W/CONTRAST MATERIAL Azucena Ingram PA-C [address] [place], [place] [address] Mr Imaging [facility] Referral ID Status Reason Start Date Expiration Date V isits Requested Visits Authorized [id number] Closed Auto-Generate d Referral 03/08/2023 05/07/2023 1 1 Additional Source Comments INFORMATION SOURCE (unrecogn ized section and content) DATE CREATED AUTHOR AUTHOR'S ORGANIZ ATION 04/22/2018 [facility] DATE CREATED AUTHOR AUTHOR'S ORGANIZ ATION 04/22/2018 [facility] DATE CREATED AUTHOR AUTHOR'S ORGANIZ ATION 04/22/2018 [facility] DATE CREATED AUTHOR AUTHOR'S ORGANIZ ATION 04/28/2018 [facility] ([place]) DATE CREATED AUTHOR AUTHOR'S ORGANIZ ATION 09/27/2018 [facility] DATE CREATED AUTHOR AUTHOR'S ORGANIZ ATION 09/06/2021 [facility] DATE CREATED AUTHOR AUTHOR'S ORGANIZ ATION 11/06/2021 [facility] DATE CREATED AUTHOR AUTHOR'S ORGANIZ ATION 11/09/2021 [facility] DATE CREATED AUTHOR AUTHOR'S ORGANIZ ATION 12/14/2021 [facility] DATE CREATED AUTHOR AUTHOR'S ORGANIZ ATION 10/18/2023 [facility] Goals (unrecognized section and content) Goals may be documented in a n alternate sectionGoals may be documented in an alternate sectionNo InformationGoals may be documented in an alternate section Source Comments (unrecognize d section and content) In the event this informatio n is protected by the Federal Confidentiality of Alcohol and Drug Abuse Patient Records regulations: The Federal rules restrict any use of the information to criminally investigate or prosecute any alcohol or drug abuse patient.[facility] the event this information is protected by the Federal Confidentiality of Alcohol and Drug Abuse Patient Records regulations: The Federal rules restrict any use of the information to criminally investigate or prosecute any alcohol or drug abuse patient.[facility] the event this information is protected by the Federal Confidentiality of Alcohol and Drug Abuse Patient Records regulations: The Federal rules restrict any use of the information to criminally investigate or prosecute any alcohol or drug abuse patient.[facility] the event this information is protected by the Federal Confidentiality of Alcohol and Drug Abuse Patient Records regulations: The Federal rules restrict any use of the information to criminally investigate or prosecute any alcohol or drug abuse patient.[facility] the event this information is protected by the Federal Confidentiality of Alcohol and Drug Abuse Patient Records regulations: The Federal rules restrict any use of the information to criminally investigate or prosecute any alcohol or drug abuse patient.[facility] the event this information is protected by the Federal Confidentiality of Alcohol and Drug Abuse Patient Records regulations: The Federal rules restrict any use of the information to criminally investigate or prosecute any alcohol or drug abuse patient.[facility] the event this information is protected by the Federal Confidentiality of Alcohol and Drug Abuse Patient Records regulations: The Federal rules restrict any use of the information to criminally investigate or prosecute any alcohol or drug abuse patient.[facility] the event this information is protected by the Federal Confidentiality of Alcohol and Drug Abuse Patient Records regulations: The Federal rules restrict any use of the information to criminally investigate or prosecute any alcohol or drug abuse patient.[facility] the event this information is protected by the Federal Confidentiality of Alcohol and Drug Abuse Patient Records regulations: The Federal rules restrict any use of the information to criminally investigate or prosecute any alcohol or drug abuse patient.[facility] the event this information is protected by the Federal Confidentiality of Alcohol and Drug Abuse Patient Records regulations: The Federal rules restrict any use of the information to criminally investigate or prosecute any alcohol or drug abuse patient.[facility] the event this information is protected by the Federal Confidentiality of Alcohol and Drug Abuse Patient Records regulations: The Federal rules restrict any use of the information to criminally investigate or prosecute any alcohol or drug abuse patient.[facility] the event this information is protected by the Federal Confidentiality of Alcohol and Drug Abuse Patient Records regulations: The Federal rules restrict any use of the information to criminally investigate or prosecute any alcohol or drug abuse patient.[facility] Hospital[facility] the event this information is protected by the Federal Confidentiality of Alcohol and Drug Abuse Patient Records regulations: The Federal rules restrict any use of the information to criminally investigate or prosecute any alcohol or drug abuse patient.[facility] Hospital[facility] the event this information is protected by the Federal Confidentiality of Alcohol and Drug Abuse Patient Records regulations: The Federal rules restrict any use of the information to criminally investigate or prosecute any alcohol or drug abuse patient.[facility] Hospital[facility] the event this information is protected by the Federal Confidentiality of Alcohol and Drug Abuse Patient Records regulations: The Federal rules restrict any use of the information to criminally investigate or prosecute any alcohol or drug abuse patient.[facility] Hospital[facility] the event this information is protected by the Federal Confidentiality of Alcohol and Drug Abuse Patient Records regulations: The Federal rules restrict any use of the information to criminally investigate or prosecute any alcohol or drug abuse patient.[facility] HospitalIn the event this information is protected by the Federal Confidentiality of Alcohol and Drug Abuse Patient Records regulations: The Federal rules restrict any use of the information to criminally investigate or prosecute any alcohol or drug abuse patient.[facility] HospitalIn the event this information is protected by the Federal Confidentiality of Alcohol and Drug Abuse Patient Records regulations: The Federal rules restrict any use of the information to criminally investigate or prosecute any alcohol or drug abuse patient.[facility] Hospital[facility] the event this information is protected by the Federal Confidentiality of Alcohol and Drug Abuse Patient Records regulations: The Federal rules restrict any use of the information to criminally investigate or prosecute any alcohol or drug abuse patient.[facility] Hospital[facility] the event this information is protected by the Federal Confidentiality of Alcohol and Drug Abuse Patient Records regulations: The Federal rules restrict any use of the information to criminally investigate or prosecute any alcohol or drug abuse patient.[facility] Reason for Visit (unrecogniz ed section and content) Reason Comments Results Reason Comments Follow Up C/o back pain from a fall - seen in [facility] Had MRI done in October in [place] and was told she has calcium deposits on brain. Reason Comments New Patient Headache Specialty Diagnoses / Procedures Referred By Sandy mantilla Referred To Contact Diagnoses Chronic nonintractable headache, unspecified headache type Procedures CONSULT TO HEADACHE CLINIC OFFICE/OUTPATIENT NEW HIGH MDM 60-74 MINUTES Older, Chantal, OFFICE SERVICES ASSOCIATE.BREAD JOCKEY [address] [place] [address] Referral ID Status Reason Start Date Expiration Date Visits Requested Visits Authorized [id number] Pending Review PCP Requested Referral 01/21/2023 01/21/2024 1 1 Reason Comments Orders Reason Comments Establish Care Reason Comments Insurance Authorization Epi-pen Reason Comments Opened In Error Reason Comments Valance Cutter - Other Reason Comments Procedure Left thyroid FNA. Reason Comments Consult Thyroid nodule Reason Comments Results FNA results Specialty Diagnoses / Procedures Referred By Sandy mantilla Referred To Contact MR IMAGING Diagnoses Intractable migraine without aura and with status migrainosus Procedures MRI BRAIN WO/W IVCON MRI BRAIN BRAIN STEM W/O W/CONTRAST MATERIAL Azucena Ingram PA-C [address] [address] [place] [address] Referral ID Status Reason Start Date Expiration Date V isits Requested Visits Authorized [id number] Closed Auto-Generate d Referral 03/08/2023 05/07/2023 1 1 Reason Comments Pain (foot) Left foot-Rolled ank le on Thursday Care Teams (unrecognized sec tion and content) Guest Service Representative Relationship Specialty Start Date End Date Anjel Holley APRN.BREAD JOCKEY [address] [place] [id number] PCP - General Family Medicine 04/24/23 Guest Service Representative Relationship Specialty Start Date End Date Anjel Holley APRN.BREAD JOCKEY [address] [place] [address] [phone] PCP - General Family Medicine 04/24/23 Guest Service Representative Relationship Specialty Start Date End Date Anjel Holley APRN.BREAD JOCKEY [address] [place] [address] [phone] PCP - General Family Medicine 04/24/23 Guest Service Representative Relationship Specialty Start Date End Date Anjel Holley APRN.BREAD JOCKEY [address] [place] [address] [phone] PCP - General Family Medicine 04/24/23 Guest Service Representative Relationship Specialty Start Date End Date Anjel Holley APRN.BREAD JOCKEY [facility] [place] [address] PCP - General Family Medicine 04/24/23 Guest Service Representative Relationship Specialty Start Date End Date Anjel Holley APRN.BREAD JOCKEY [address] [place] [id number] PCP - General Family Medicine 04/24/23 Guest Service Representative Relationship Specialty Start Date End Date Anjel Holley APRN.BREAD JOCKEY [address] [place] [phone] PCP - General Family Medicine 04/24/23 Guest Service Representative Relationship Specialty Start Date End Date Anjel Holley APRN.BREAD JOCKEY [address] [place] [phone] PCP - General Family Medicine 04/24/23 Guest Service Representative Relationship Specialty Start Date End Date Anjel Holley OFFICE SERVICES ASSOCIATE.BREAD JOCKEY [address] [place] [phone] PCP - General Family Medicine 04/24/23 Guest Service Representative Relationship Specialty Start Date End Date Anjel Holley APRN.BREAD JOCKEY [address] [place] [id number] PCP - General Family Medicine 04/24/23 Guest Service Representative Relationship Specialty Start Date End Date Anjel Holley [employer]ICE SERVICES ASSOCIATE.[employer] [address] [place] [address] [phone] PCP - General Family Medicine 04/24/23 FOR RECORDS PERTAINING TO PATIENTS WHO ARE OR HAVE BEEN ENROLLED IN A CHEMICAL DEPENDENCY/SUBSTANCEABUSE PROGRAM, SOME INFORMATION MAY BE OMITTED. This clinical summary was aggregated from multiple sources. Caution should be exercised in using it in the provision of clinical care. This summary normalizes information from multiple sources, and as a consequence, information in this document may materially change the coding, format and clinical context of patient data. In addition, data may be omitted in some cases. CLINICAL DECISIONS SHOULD BE BASED ON THE PRIMARY CLINICAL RECORDS. [facility]. provides no warranty or guarantee of the accuracy or completeness of information in this document.
[2023-11-23 20:15] LABS: ALB/GLOB Ratio 1.1 RATIO (0.9-2.4); AST(SGOT) 21 U/L (15-37); Alanine Aminotransfer ALT/SGPT 57 U/L (13-56); Albumin, Serum 3.9 g/dL (3.2-5.0); Alkaline Phosphatase 77 U/L (45-117); Anion Gap 8 (5-15); BUN 13 mg/dL (7-18); BUN/Creat Ratio 17.8 RATIO (10-20); Calcium,Total 9.4 mg/dL (8.5-10.1); Chloride 108 mmol/L (98-107); Creatinine, Serum 0.73 mg/dL (0.55-1.02); EST Glomerular Filtration Rate 98 mL/min (>60); Est Glom Filt Rate - Afr Amer 118 mL/min (>60); Globulin 3.6 g/dL (2.2-4.2); Glucose 96 mg/dL (74-106); Lipase 44 U/L (13-75); Potassium 3.6 mmol/L (3.5-5.1); Protein, Total 7.5 g/dL (6.4-8.2); Sodium Level 139 mmol/L (136-145)
[2023-11-23 20:38] LABS: Bacteria 0 SEEN /hpf (None Seen); Mucous, Urine 0 SEEN /hpf (<or=2+); Red Blood Cells-Urine 0 SEEN /hpf (0-5); Squamous Epithelial Cells - UA 0 SEEN /hpf (5-10); White Blood Cells 0 SEEN /hpf (0-5)
[2023-11-23 20:39] LABS: Color, Urine Yellow (Yellow); Glucose, Dipstick Normal (Normal); Ketone-Dipstick Negative (Negative); Leukocyte Esterase-Dipstick Negative /ul (Negative); Nitrite-Dipstick Negative (Negative); Occult Blood-Urine Negative /ul (Negative); Protein-Dipstick 15 mg/dl (Negative); Specific Gravity, Urine 1.015 (1.002-1.030); Urine Bilirubin Dipstick Negative (Negative); Urine Clarity Clear (Clear); Urine Urobilinogen Normal (Normal)
[2023-11-23] MEDS: proMETHazine 25 MG/ML Syringe 12.5 MG IM (21:03)
[2023-11-23 21:12] VITALS: BP 116/68; PULSE 68; RESP 18
== END 2023-11-23 21:21 | disposition home or self-care (01) ==
PROVIDERS: Physician Assistant; Emergency Provider Emergency Medicine; Visit Provider Emergency Medicine
DX: R10.33 Periumbilical pain (principal); R10.31 Right lower quadrant pain; R11.2 Nausea with vomiting, unspecified; R50.9 Fever, unspecified; J45.909 Unspecified asthma, uncomplicated; Z79.899 Other long term (current) drug therapy; Z87.891 Personal history of nicotine dependence; Z90.49 Acquired absence of other specified parts of digestive tract; Z90.710 Acquired absence of both cervix and uterus
CPT/HCPCS: 74177; 80053; 81001; 83690; 85025; 96372; 96374; 99282; Q9967

== ENCOUNTER 2024-02-01 19:35 | Emergency (ER) | payer MEDICAID, SELFPAY ==
[2024-02-01 19:36] VITALS: BP 135/80; PULSE 92; RESP 16; TEMP 36.6; O2SAT 100; BMI 41.1
[2024-02-01 19:59] LABS: Mucous, Urine 0 SEEN /hpf (<or=2+); Red Blood Cells-Urine 0 SEEN /hpf (0-5); White Blood Cells 0 SEEN /hpf (0-5)
[2024-02-01 20:00] LABS: Absolute Lymphocyte Count 2.81 X10^3/uL (0.83-4.51); Absolute Neutrophil Count 4.3 X10^3/uL (2.0-7.7); Basophil# 0.06 X10^3/uL; Basophil% 0.8 % (0-1); Eosinophil# 0.11 X10^3/uL; Eosinophils% 1.4 % (0-5); Hematocrit 44.7 % (37-47); Hemoglobin 14.7 g/dL (12.0-15.0); Lymphocyte # 2.81 X10^3/ul (0.83-4.51); Lymphocyte % 35.8 % (19-41); Mean Corp Hgb Conc 32.9 g/dL (32-36); Mean Corpuscular Hgb 29.6 pg (27.0-32.0); Mean Corpuscular Volume 89.9 fL (81-99); Mean Platelet Vol. 9.5 fl (6.2-12.0); Monocyte# 0.57 X10^3/uL; Monocyte% 7.3 % (0-10); NRBC Flagged by Analyzer 0 % (0-5); Neutrophil # 4.29 X10^3/uL (2.7-7.7); Neutrophil % 54.4 % (47-70); Platelet Count 359 K/mm3 (150-450); RBC Distribution Width CV 12.3 % (11.6-14.6); RBC Distribution Width SD 40.5 fl (35.1-43.9); Red Blood Count 4.97 M/mm3 (4.2-5.4); White Blood Count 7.9 K/mm3 (4.4-11.0)
[2024-02-01 20:01] LABS: Color, Urine Yellow (Yellow); Glucose, Dipstick Normal (Normal); Ketone-Dipstick Negative (Negative); Leukocyte Esterase-Dipstick Negative /ul (Negative); Nitrite-Dipstick Negative (Negative); Occult Blood-Urine Negative /ul (Negative); Protein-Dipstick Negative (Negative); Specific Gravity, Urine 1.025 (1.002-1.030); Urine Bilirubin Dipstick Negative (Negative); Urine Clarity Clear (Clear); Urine Urobilinogen Normal (Normal)
[2024-02-01 20:11] LABS: Bacteria 1+ /hpf (None Seen); Squamous Epithelial Cells - UA 0-5 SEEN /hpf (5-10)
[2024-02-01 20:16] LABS: Internal QC Validated? YES +Cl - CLEAR BKGD; Pregnancy, Serum, hCG Quali. NEGATIVE Negative
[2024-02-01 20:20] LABS: ALB/GLOB Ratio 1.1 RATIO (0.9-2.4); AST(SGOT) 29 U/L (15-37); Alanine Aminotransfer ALT/SGPT 60 U/L (13-56); Albumin, Serum 4.3 g/dL (3.2-5.0); Alkaline Phosphatase 90 U/L (45-117); Anion Gap 10 (5-15); BUN 9 mg/dL (7-18); BUN/Creat Ratio 10.7 RATIO (10-20); Calcium,Total 9.3 mg/dL (8.5-10.1); Chloride 104 mmol/L (98-107); Creatinine, Serum 0.84 mg/dL (0.55-1.02); EST Glomerular Filtration Rate 83 mL/min (>60); Est Glom Filt Rate - Afr Amer 100 mL/min (>60); Estimated Creatinine Clearance 115.91 ml/min; Globulin 3.9 g/dL (2.2-4.2); Glucose 104 mg/dL (74-106); Potassium 3.5 mmol/L (3.5-5.1); Protein, Total 8.2 g/dL (6.4-8.2); Sodium Level 139 mmol/L (136-145)
[2024-02-01 21:35] VITALS: BP 135/81; PULSE 89; RESP 16; O2SAT 98
[2024-02-01] MEDS: Ondansetron 4 MG/2 ML Vial IV (22:49)
[2024-02-01] MEDS: Dicyclomine 20 MG/2 ML Vial IM (22:49)
[2024-02-01 23:00] VITALS: BP 120/75; PULSE 66; RESP 16; O2SAT 100
[2024-02-01 23:40] VITALS: BP 120/80; PULSE 71; RESP 16; TEMP 37; O2SAT 100
--- NOTE | 2024-02-01 23:59 | ED.VIS.GI ---
HPI HPI - GI History of Present Illness Chief Complaint: Nausea/Vomiting/Diarrhea Narrative Narrative: 33-year-old female presenting with abdominal pain. She states she had nausea, vomiting, diarrhea as well. She states has had the symptoms long-term but they come intermittently. She has not had a fever. She does not feel as though she has something viral. She states this is her usual cramping abdominal pain. PFSH PFS Medical History Anxiety Asthma Depression Hx of abdominal abscess Small bowel obstruction Home Medications epinephrine 0.3 mg/0.3 mL injection, auto-injector 0.3 mg (0.3 mL) IM X1 ##2 04/07/17 [Rx Last Taken Unknown] dicyclomine 10 mg capsule 20 mg (2 x 10 mg) PO BID PRN abdominal pain 5 days #10 caps 11/23/23 [Rx Last Taken Unknown] ondansetron 4 mg disintegrating tablet 4 mg PO Q6H #12 tabs 11/23/23 [Rx Last Taken Unknown] dicyclomine 10 mg capsule 10 mg PO TID PRN abdominal pain #30 caps 02/01/24 [Rx Last Taken Unknown] ondansetron 4 mg disintegrating tablet 4 mg PO Q8H PRN PRN Nausea #20 tabs 02/01/24 [Rx Last Taken Unknown] Allergy/AdvReac Type Severity Reaction Status Date / Time Food Allergies: Uncoded Allergy Unknown Rash Verified 02/01/24 19:35 acetaminophen [From Tylenol] Allergy Anaphylaxis Verified 02/01/24 19:35 aspirin Allergy Hives Verified 02/01/24 19:35 ibuprofen Allergy Anaphylaxis Verified 02/01/24 19:35 ketorolac [From Toradol] Allergy Anaphylaxis Verified 02/01/24 19:35 monosodium glutamate [msg] Allergy Hives Verified 02/01/24 19:35 oxycodone HCl [From Percocet] Allergy Shortness Verified 02/01/24 19:35 of breath peanut Allergy Shortness Verified 02/01/24 19:35 of breath strawberry [[place]] Allergy Hives Verified 02/01/24 19:35 venom-honey bee Allergy Shortness Verified 02/01/24 19:35 [bee venom (honey bee)] of breath water chestnut Allergy Hives Verified 02/01/24 19:35 Surgical History H/O: hysterectomy Hx of cholecystectomy Social History Smoking Status: Former smoker ROS ROS ED Constitutional Constitutional ED: Denies chills, fever(s) or sweats Eyes Eyes: Denies blurry vision or change in vision ENT ENT ED: Denies ear pain or sore throat Cardiovascular Cardiovascular: Denies chest pain, palpitations or racing heartbeat Respiratory/Chest Respiratory/Chest: Denies cough, dyspnea or sputum Gastrointestinal Gastrointestinal: Reports abdominal pain, diarrhea, nausea and vomiting; Denies constipation Genitourinary Genitourinary ED: Denies dysuria, hematuria or urinary frequency Musculoskeletal Musculoskeletal: Denies arthralgias, myalgias or neck pain Integumentary Denies abscess, Abrasions or rash Neurologic Neurologic: Denies headache(s), paresthesias or weakness Psychiatric Psychiatric: Denies anxiety, depression, suicidal ideation or suicidal thoughts Endocrine Endocrinology: Denies polydipsia or polyuria EXAM Physical Exam Const Vital Signs: 02/01/24 19:36 02/01/24 21:35 02/01/24 22:07 Temperature 97.8 F Temperature Source Temporal Pulse Rate 92 89 Respiratory Rate 16 16 Respiratory Pattern Normal Blood Pressure 135/80 H 135/81 H Blood Pressure Mean 98 99 Pulse Ox 100 98 Oxygen Delivery Method Room Air 02/01/24 23:00 02/01/24 23:40 Temperature 98.6 F Temperature Source Pulse Rate 66 71 Respiratory Rate 16 16 Respiratory Pattern Blood Pressure 120/75 120/80 Blood Pressure Mean 90 93 Pulse Ox 100 100 Oxygen Delivery Method Room Air Positive well nourished General Appearance ED: NAD HEENT Reports moist mucous membranes Eyes PERRL Resp normal respiratory effort Cardio regular rate and regular rhythm GI non-tender, non-distended and no masses Neuro CN's II-XII intact bilaterally and moves all extremities Sensorium / Orientation: alert Motor Exam: strength 5/5 throughout Psych mental status grossly normal Skin no wounds MDM MDM MDM Narrative Medical decision making narrative: Patient presenting with nausea, vomiting, diarrhea. Her abdominal exam is benign. Differential includes gastroenteritis, colitis, viral syndrome. CBC was obtained to assess white blood cell count, hemoglobin, platelets. CMP to assess liver function, renal function and electrolytes. Lipase to assess for pancreatitis. hCG to assess for . Urinalysis to assess for UTI. Lab work is all unremarkable with exception of a ALT of 60 which has been elevated in the past. hCG negative. Urinalysis negative for infection. Patient was treated with Bentyl and Zofran and feels much better on reevaluation. Patient will be given a prescription for both these for home. I do not believe she is a CT scan. We discussed this at length. Return precautions discussed. Impression: 1. Abdominal pain 2. Nausea/vomiting 3. Diarrhea Lab Data Attestation: I reviewed the patient's lab results. Labs: Laboratory Results - last 24 hr 02/01/24 02/01/24 19:41 19:50 WBC 7.9 RBC 4.97 Hgb 14.7 Hct 44.7 MCV 89.9 MCH 29.6 MCHC 32.9 RDW Std Deviation 40.5 RDW Coeff of Cheri 12.3 Plt Count 359 MPV 9.5 Immature Gran % (Auto) 0.300 Neut % (Auto) 54.4 Lymph % (Auto) 35.8 [place] % (Auto) 7.3 Eos % (Auto) 1.4 Baso % (Auto) 0.8 Absolute Neuts (auto) 4.3 Absolute Lymphs (auto) 2.81 Nucleated RBC % 0 Sodium 139 Potassium 3.5 Chloride 104 Carbon Dioxide 25.0 Anion Gap 10 BUN 9 Creatinine 0.84 Estim Creat Clear Calc 115.91 Est GFR (MDRD) Af Amer 100 Est GFR (MDRD) Non-Af 83 BUN/Creatinine Ratio 10.7 Glucose 104 Calcium 9.3 Total Bilirubin 0.80 AST 29 ALT 60 H Alkaline Phosphatase 90 Total Protein 8.2 Albumin 4.3 Globulin 3.9 Albumin/Globulin Ratio 1.1 Serum , Qual NEGATIVE Urine Color Yellow Urine Clarity Clear Urine pH 5.0 Ur Specific [place] 1.025 Urine Protein Negative Urine Glucose (UA) Normal Urine Ketones Negative Urine Occult Blood Negative Urine Nitrite Negative Urine Bilirubin Negative Urine Urobilinogen Normal Ur Leukocyte Esterase Negative Urine RBC 0 SEEN Urine WBC 0 SEEN Ur Squamous Epith Cells 0-5 SEEN Urine Bacteria 1+ Urine Mucus 0 SEEN Discharge Plan Triage Chief Complaint: Nausea/Vomiting/Diarrhea ED Provider: Refugio Melo Dx/Rx/DC Orders Clinical Impression: Abdominal pain Instructions: ED Abdominal Pain Unkn Cause Fem, ED Gastroenteritis, Viral (Adult) Prescriptions: New ondansetron 4 mg tablet,disintegrating 4 mg PO Q8H PRN PRN (Reason: Nausea) Qty: 20 0RF dicyclomine 10 mg capsule 10 mg PO TID PRN (Reason: abdominal pain) Qty: 30 0RF No Action epinephrine 0.3 MG syringe 0.3 mg IM X1 Qty: 2 0RF ondansetron 4 mg tablet,disintegrating 4 mg PO Q6H Qty: 12 0RF dicyclomine 10 mg capsule 20 mg PO BID PRN (Reason: abdominal pain) 5 Days Qty: 10 0RF Primary Care Provider: Mirna Holley Referrals: Mirna Holley, [employer]USTRIAL [employer]IC[employer]-[facility] [Primary Care Provider] - Disposition Disposition: Home, Self Care Discharge Date/Time: 02/01/24 23:41
== END 2024-02-01 23:41 | disposition home or self-care (01) ==
LOC: ED 22:23
PROVIDERS: Emergency Provider Student in an Organized Health Care Education/Training Program; PCP Nurse Practitioner Family; Visit Provider Student in an Organized Health Care Education/Training Program
DX: R10.9 Unspecified abdominal pain (principal); R11.2 Nausea with vomiting, unspecified; R19.7 Diarrhea, unspecified; Z79.899 Other long term (current) drug therapy; Z87.891 Personal history of nicotine dependence
CPT/HCPCS: 80053; 81001; 84703; 85025; 96372; 96374; 99284; A4216; J2405